=== PATIENT | male | born 1950 | race Caucasian/White ===

== ENCOUNTER → 2023-10-01 10:22 | Outpatient (REF) | payer MEDICARE, OTHER, SELFPAY | LOC: RAD 10:22 | PROVIDERS: ATTENDING PHYSICIAN Surgery Vascular Surgery; FAMILY PHYSICIAN Internal Medicine | DX: I73.9 Peripheral vascular disease, unspecified (principal) | CPT/HCPCS: 93922; 93925 ==

== ENCOUNTER 2023-12-09 14:32 | Inpatient (IN) | payer MEDICARE, OTHER, SELFPAY ==
[2023-12-09] VITALS (8 sets, daily range): BP systolic 87–145; BP diastolic 49–82; BMI 26.4
[2023-12-09 13:03] LABS: % Basophils 0.2 % (0-2); % Eosinophils 1.4 % (0-6); % Immature Granulocytes 0.9 % (0-0.5); % Lymphocytes 15.9 % (20.5-51.1); % Monocytes 11.8 % (1.7-9.3); % Neutrophils 69.8 % (42.2-75.2); Absolute Eosinophils 0.1 10^3/uL (0-0.7); Absolute Lymphocytes 0.7 10^3/uL (1.2-3.4); Absolute Monocytes 0.5 10^3/uL (0.1-0.6); Hematocrit 29.3 % (39.0-52.0); Hemoglobin 9.8 g/dL (13.0-18.0); Mean Corp Hgb Conc. 33.4 g/dL (33.0-37.0); Mean Corpuscular Hgb 32.1 pg (27.0-31.0); Mean Corpuscular Volume 96.1 fL (80.0-94.0); Mean Platelet Volume 12.4 fL (7.4-10.4); Nucleated Red Blood Cells % 0 % (-); Platelet Count 111 10^3/uL (130-400); Red Blood Cell Count 3.05 10^6/uL (4.70-6.10); Red Cell Dist. Width 14.1 % (11.5-14.5); White Blood Cell Count 4.3 10^3/uL (4.8-10.8)
[2023-12-09 13:04] LABS: ALT (SGPT) 17 U/L (0-50); AST (SGOT) 15 U/L (17-59); Albumin 3.8 g/dl (3.5-5.0); Alkaline Phosphatase 131 U/L (38-126); Blood Urea Nitrogen 29 mg/dl (9-20); Calcium 9.5 mg/dl (8.4-10.2); Carbon Dioxide 29 mmol/L (22-30); Chloride 101 mmol/L (98-107); Glucose 120 mg/dl (70-99); Potassium 3.8 mmol/L (3.5-5.1); Sodium 140 mmol/L (135-145); Total Bilirubin 0.4 mg/dl (0.2-1.3); Total Protein 6.1 g/dl (6.3-8.2); eGFR 15.06
--- NOTE | 2023-12-09 13:19 | ED.GENMED ---
History of Present Illness
General
Chief Complaint: Rectal Bleeding
Source: patient and spouse
Exam Limitations: none
Time Seen by Provider: 12/09/23 12:05
Nursing documentation reviewed up to this point in time: agreed with
Travel History
Have you had any contact with someone who has COVID-19?: No
Do you have any symptoms of coronavirus? Fever > 100 degrees, chills, cough, shortness of breath, sore throat, loss of taste or smell, muscle aches, or headache?: No
History of Present Illness
History of Present Illness:
73 yo male w h/o CAD, HTN, HLD, pacemaker, Linq device, CABG x 5, on Plavix (last dose 2 days ago) and aspirin, ESRD on dialysis, last dialysis was yesterday, presents stating he has had 3 episodes of bright red blood with bowel movements since
yesterday last was this morning.
He has chronic NI and chronic intermittent chest pain and chronic pain in his legs and none of these are worse.
Past History
Past History
ED Past Medical History: CAD, GERD, HTN, Hypercholesterolemia, Renal failure (Thursday) and Other (Gout)
ED Past Surgical History: Appendectomy and Cardiac (cardiac stent, Open heart)
Social History
Tobacco: Non-smoker
Alcohol: None
Drug: None
Personal:
Living: with family
Review of Systems
Review of Systems
Allergies reviewed?: Yes
All Other Systems: ROS reviewed and negative except as documented in HPI and ROS
Constitutional: Denies fever or fatigue
Respiratory: Reports cough (Chronic intermittent, no change) and trouble breathing (Chronic, no change)
Cardiac: Reports chest pain (Chronic intermittent, no change); Denies palpitations or syncope
ABD/GI: Reports bloody stools; Denies abdominal pain, nausea, vomiting, diarrhea or constipated
: Reports other (Dialysis patient)
Musculoskeletal: Reports no symptoms
Skin: Reports other (Dialysis shunt left upper arm)
Neurological: Denies dizzy, headache, weakness or numbness
Phy Exam
Physical Exam
Physical Exam:
GENERAL: No acute distress. A&Ox3.
CONSTITUTIONAL: Afebrile.
EYES: PERRL, conjunctivae normal
ENMT: moist mucus membranes, Pharynx nl
RESPIRATORY: Regular respirations, nonlabored, lungs clear.
CARDIOVASCULAR: Regular rate and rhythm, + murmur, no rubs.
GI: Soft, nontender, normal BS
Rectal: No stool in rectal vault, gloved finger with maroon-colored liquid hematest positive. No visible or palpable hemorrhoids
MUSCULOSKELETAL: Moves with ease. Well perfused.
SKIN: Warm, dry, pink
PSYCH: Normal mood and affect. Well kept, interactive and appropriate
NEUROLOGIC: Awake, alert and oriented. No focal neurological deficits rectal:
Course
Orders/Labs/Results
Orders:
Orders
12/09/23 12:40
Type+Screen Urgent
Complete Blood Count/With Diff Urgent
Comprehensive Metabolic Panel Urgent
12/09/23 13:33
Electrocardiogram (*1) Urgent
Reason for Study: Other
Other Reason for Exam: bigeminy
EKG- Treatment ONCE
12/09/23 14:18
Old Records Request [Obtain Records] As Directed
Dates of Information to be Released: 12/09/23
Type of Information Requested: Entire Record
Comment: need dialysis notes with treatement plan [phone]
12/09/23 14:20
Admit/Transfer Patient As Directed
Co-Sign Provider:
Level of Care: Inpatient admission
Assign to:: Medical/Surgical
Physician / Group: elinor recinos
Diagnosis: acute rectal bleeding concern diverticular
Reason for Hospitalization: acute rectal bleeding concern diverticular
Expected length of stay greater than two midnights?: Yes
ELOS- Estimated Length of Stay in days: 3
I certify the patient meets the requirements for IP care: Yes
Code Status As Directed
Resuscitation Status: Full Code
12/09/23 14:29
GASTROINTESTINAL CONSULT Routine
Consulting Provider: Ayla Pak
Was physician already notified: Yes
Reason for consult: Rectal bleeding
12/09/23 16:00
Activity As Directed
Activity Level: As Tolerated
Intake/ Output As Directed
Frequency: Per unit guidelines
Pneumatic Compression Sleeves As Directed
Type: Knee high
Vital Signs As Directed
Frequency: Per unit guidelines
Weight As Directed
Frequency: Daily
Pulse Ox/spot Check [RESP] Routine
Quantity: 1
Ot Eval And Treat Routine
Pt Eval And Treat Routine
Activity Level: As Tolerated
DX Deep Vein Thrombosis Video Routine
12/09/23 16:30
Furosemide [Lasix] 40 mg PO BID@0800,1600
12/09/23 17:30
Sevelamer Carbonate [Renvela] 1,600 mg PO MEALS
12/09/23 20:00
H&H Q8H
ISOSORBIDE MONOnitrate ER [Imdur (Extended Release)] 60 mg PO BID
Metoprolol [Lopressor] 50 mg PO BID
12/09/23 22:00
Allopurinol [Zyloprim] 100 mg PO HS
Amlodipine [Norvasc] 5 mg PO HS
12/10/23 04:00
H&H Q8H
12/10/23 06:00
Complete Blood Count/With Diff IN AM
Comprehensive Metabolic Panel IN AM
12/10/23 08:00
Aspirin Low Dose EC [Aspir Low (Enteric Coated)] 81 mg PO DAILY
Cholecalciferol (Vitamin D3) [VITAMIN D3 (cholecalciferol)] 25 mcg PO DAILY
Cyanocobalamin [Vitamin B-12] 100 mcg PO DAILY
12/10/23 12:00
H&H Q8H
12/10/23 20:00
H&H Q8H
12/11/23 06:00
Complete Blood Count/With Diff IN AM
Comprehensive Metabolic Panel IN AM
12/11/23 08:00
Calcitriol [Rocaltrol] 0.75 mcg PO MoWeFr
12/12/23 06:00
Complete Blood Count/With Diff IN AM
Comprehensive Metabolic Panel IN AM
12/13/23 06:00
Complete Blood Count/With Diff IN AM
Comprehensive Metabolic Panel IN AM
Abnormal Lab Results
12/09/23
12:40
WBC 4.3 L 10^3/uL
(4.8-10.8)
RBC 3.05 L 10^6/uL
(4.70-6.10)
Hgb 9.8 L g/dL
(13.0-18.0)
Hct 29.3 L %
(39.0-52.0)
MCV 96.1 H fL
(80.0-94.0)
MCH 32.1 H pg
(27.0-31.0)
Plt Count 111 L 10^3/uL
(130-400)
MPV 12.4 H fL
(7.4-10.4)
Absolute Lymphs (auto) 0.7 L 10^3/uL
(1.2-3.4)
Immature Gran % 0.9 H %
(0-0.5)
Lymphocytes % 15.9 L %
(20.5-51.1)
Monocytes % 11.8 H %
(1.7-9.3)
BUN 29 H mg/dl
(9-20)
Creatinine 4.0 H mg/dL
(0.7-1.3)
Glucose 120 H mg/dl
(70-99)
AST 15 L U/L
(17-59)
Alkaline Phosphatase 131 H U/L
(38-126)
Total Protein 6.1 L g/dl
(6.3-8.2)
12/09/23 12:40
12/09/23 12:40
Vital Signs
Initial and Last Documented VS:
Initial Vital Signs
Temp Pulse Resp BP Pulse Ox
98.3 F 99 20 112/49 99
12/09/23 12:01 12/09/23 12:01 12/09/23 12:01 12/09/23 12:01 12/09/23 12:01
Last Documented Vital Signs
Temp Pulse Resp BP Pulse Ox
98.1 F 85 16 105/57 100
12/09/23 16:55 12/09/23 16:55 12/09/23 16:55 12/09/23 16:55 12/09/23 16:55
MDM/Problems Addressed
Differential Diagnosis Includes:
Hemorrhoid, lower GI bleed
MDM/Problems Addressed:
73 yo male w h/o CAD, HTN, HLD, pacemaker, Linq device, CABG x 5, on Plavix and aspirin, ESRD on dialysis, last dialysis was yesterday, presents stating he has had 3 episodes of bright red blood with bowel movements since yesterday last was this
morning.
He has chronic NI and chronic intermittent chest pain and chronic pain in his legs and none of these are worse.
1:15 PM
CBC: Hemoglobin 9.8
CMP: Consistent with his ESRD
Rectal: Maroon liquid on gloved finger hematest positive
No visible hemorrhoids
Patient is hemodynamically stable
Hospitalist notified of admission
*EKG
EKG Intrepretation Date: 12/09/23
Interpretation: abnormal
Ischemia: no ischemia
*Critical Care Note
Total Time (30-74mins, 75-104mins- exclusive of procedures): Not Applicable
ED Attending Note
-
Portions of this chart may have been created with voice recognition software.� Occasional wrong word or��sound alike� substitutions may have occurred due to the inherent limitations of voice recognition software.
Discharge Plan
Departure
Patient Disposition: Admit
Date of Disposition: 12/09/23
Time of Disposition: 13:19
Admit to: Med/Surg
Presentation/result/management discussed w/ accepting MD/DO: Hospitalist
Condition: Good
Discharge Problem:
Rectal bleeding
Interventions
Interventions:
*Risk Screen - Suicide Last Done: 12/09/23 12:01
*General Assessment Last Done: 12/09/23 12:01
*Neglect/Abuse Screening Last Done: 12/09/23 12:01
ED- Fall Risk Assessment Last Done: 12/09/23 15:59
*ED COVID-19 Vaccine History Last Done: 12/09/23 15:59
*Nursing Disposition Last Done: 12/09/23 15:59
PJ-Yswwha-Jtkzunsigz Assessment Last Done: 12/09/23 12:42
ED- Cardiac Assessment Last Done: 12/09/23 13:36
ED- Pulmonary Assessment Last Done: 12/09/23 12:41
Discharge Date and Time
Discharge Date/Time: 12/09/23 15:59
--- NOTE | 2023-12-09 13:45 | HPS.HSE ---
Addendum entered and electronically signed by Herman Osman MD 12/09/23 15:00:
Seen and examined by me independently in collaboration with the nurse practitioner Shakira.
Past medical history/social history/medication/allergies reviewed.
Lab data and imaging data reviewed.
Patient presents with episodic bright red rectal bleeding since 12/06.
Denies any nausea vomiting or abdominal pain. No dizziness.
He is on aspirin and Plavix for coronary stent. Stop taking Plavix since Thursday.
is hemodynamically stable and his H&H seems stable compared to previous results.
Concern of lower GI bleed. Hold further Plavix. Continue with aspirin due to coronary stent. Consult GI. Follow H&H closely.
Known to have end-stage renal disease on hemodialysis which she had yesterday. Clinically compensated. Next hemodialysis on Thursday and if he needed to stay till then will consult nephrology for hemodialysis support.
Original Note:
Family Physician
-
Family Physician: Lisa Torres
Chief Complaint
-
Rectal bleeding bright red
History of Present Illness
73-year-old male complaining of 5 episodes of bright red blood with bowel movements over the last 2 days. 2 each day then 1 this a.m. He reports he held his Plavix the first time he had blood which was 2 days ago he is on Plavix for history of
cardiac stent July 2022. In the ER his rectal exam showed liquid maroon-colored heme positive stool. He denies any recent constipation or straining. He denies headache, fever, chills, chest pain, palpitations, shortness breath, cough,
abdominal pain or cramping, nausea, vomiting, diarrhea, urinary symptoms. He did complete his dialysis this morning prior to arrival in the ER. He follows with [facility] [phone].
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
Medical History
Past Medical History
Past Medical History: Reports Other
Additional Past Medical History:
CAD status post CABG x 5 vessel/cardiac stent
chronic diastolic CHF
end-stage renal disease on dialysis Thursday
Chronic anemia/thrombocytopenia
HTN
HLD
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
gout
Past Surgical History: Reports Other
Additional Past Surgical History:
CAD status post CABG x 5 vessel/cardiac stent
Appendectomy
Colonoscopy May 2022 with benign polypectomy x 2
Social History
Tobacco: Non-smoker
Alcohol: None
Drug: None
Personal:
Living: With Family ()
Employment: Retired
Family History
Family History: Not pertinent
Allergies / Home Medications
Allergies reflects when Allergies were last updated in [facility].
Home Medications with original date entered in [facility]
Allergy/Medication List:
Allergies
Allergy/AdvReac Type Severity Reaction Status Date / Time
No Known Allergies Allergy Verified 12/09/23 12:01
Home Medications
allopurinol 100 mg tablet 100 mg PO HS Gout 08/26/22
atorvastatin 40 mg tablet 40 mg PO HS High cholesterol 08/26/22
metoprolol tartrate 50 mg tablet 50 mg PO BID Heart disease/condition 08/26/22
nitroglycerin 0.4 mg sublingual tablet 0.4 mg sublingual [id number] PRN chest pain #25 tabs 08/26/22
sevelamer HCl 800 mg tablet 1,600 mg PO MEALS Kidney Disease 08/31/22
aspirin 81 mg capsule 81 mg PO DAILY Heart Disease/Condition 03/11/23
amlodipine 5 mg tablet 5 mg PO HS Blood Pressure #0 tabs 03/17/23
calcitriol 0.25 mcg capsule 0.75 mcg PO .HD DAYS Kidney Disease 12/09/23
cholecalciferol (vitamin D3) 25 mcg (1,000 unit) tablet (Vitamin D3) 25 mcg PO DAILY Supplement 12/09/23
clopidogrel 75 mg tablet 75 mg PO .SEE BELOW Blood Clot Prevention/Tx 12/09/23
cyanocobalamin (vitamin B-12) 100 mcg tablet (Vitamin B-12) 100 mcg PO DAILY 12/09/23
furosemide 40 mg tablet 40 mg PO BID@0800,1600 12/09/23
icosapent ethyl 1 gram capsule 1 g PO BID 12/09/23
isosorbide mononitrate 60 mg tablet,extended release 24 hr 60 mg PO BID 12/09/23
Review of Systems
-
History Source: Patient and Family ( and daughter at bedside)
A 12 point ROS was completed and negative except as noted: Yes
Constitutional: Denies Fever, Weight Loss, Fatigue or Chills
EENT: Denies Sore Throat or Runny Nose
Respiratory: Denies Cough or Trouble Breathing
Cardiac: Denies Chest Pain, Diaphoresis, Palpitations or Syncope
Abdomen/GI: Reports Bloody Stools (Bright red mixed with brown solid stool); Denies Abdominal Pain, Nausea, Vomiting, Diarrhea, Constipated or Black Stools
: Denies Dysuria, Frequency, Flank Pain, Incontinence or Difficulty Voiding
Musculoskeletal: Denies Joint Pain or Edema
Skin: Denies Itching or Rash
Neurological: Denies Dizzy, Headache or Weakness
Endocrine: Reports No Symptoms
Hematologic/Lymphatic: Reports No Symptoms
Psych: Reports Calm
Physical Exam
Vital Signs
Vital Signs
Temp Pulse Resp BP Pulse Ox
98.3 F 90 20 112/49 96
12/09/23 12:01 12/09/23 13:15 12/09/23 13:15 12/09/23 12:01 12/09/23 13:15
Physical Exam
General: No Apparent Distress, Comfortable and Conversant; No Pain or Fever
HEENT: NormoCephalic, Anicteric, Moist mucous membranes, PERRLA and No Ptosis
Respiratory: Clear; No Wheezes, Rales or Rhonchi
Cardiac: S1/S2, Regular Rhythm and Murmur (2/6 systolic murmur); No Rub, Gallop or Peripheral Edema
Breast: Deferred by me
GI: Soft, Non Tender, Non Distended, Normal Bowel Sounds and No Hepatosplenomegaly
Rectal: Hem Positive (Maroon and liquid per ER exam)
Genito-urinary: Deferred by me
Musculoskeletal: No Clubbing, No Cyanosis and No Edema
Skin: Warm, Dry and Other (Left upper arm AV fistula intact positive thrill); No Rash or Jaundice
Neuro: AO x 3, No Motor Deficits, Nonfocal/grossly intact, Cranial Nerves Intact and No Sensory Deficits; No Slurred Speech, Facial Droop or Tremors
Psych: Calm
Laboratory Results
-
12/09/23 12:40
12/09/23 12:40
Laboratory Results
Total Bilirubin 0.4 mg/dl (0.2-1.3) 12/09/23 12:40
AST 15 U/L (17-59) L 12/09/23 12:40
ALT 17 U/L (0-50) 12/09/23 12:40
Alkaline Phosphatase 131 U/L (38-126) H 12/09/23 12:40
Data Reviewed
-
Lab Data: Labs Reviewed by me
Impression/Plan
-
Impression/plan:
Admit to [facility]
# Acute rectal bleeding
112/49, HR 90, 96% RA, 98.3
Maroon-colored heme positive
Hgb 9.8, MCV 96.1(baseline appears 11.8�12)
-Patient has held his Plavix the last 2 days starting 12/07/2023
-Consult GI
-Continue aspirin
-Hold Plavix
-H&H every 8 hours
-Type and screen
#ESRD on dialysis Thursday
-Patient follows with [facility] nephro [phone]
- states he had recent CT abdomen December 01 to evaluate kidneys which showed a stone she is unsure what side
-Dialysis catheter left upper arm
Creat 4
Patient had full dialysis today 12/09/2023 if stays till Thursday will need nephro consult
-Continue Calcitrol, sevelamer 1600 mg with meals
-Follow BMP
#Linq device
Follows with nsh teacher Dr. Mendoza at [facility]
#Chronic anemia secondary to renal disease
#Chronic thrombocytopenia
Hgb 9.8 baseline 1.8-12
PLT 111
#HTN�benign
112/49
-Continue amlodipine 5 mg at bedtime with hold parameter
-Continue Imdur 60 twice daily, metoprolol tartrate 50 mg twice daily with hold parameters
#Hx chronic diastolic CHF
Monitor I/O, daily weights
-Continue Lasix 40 mg twice daily
#CAD/CABG x 5 vessel
Cardiac stent July 2022
#Hx NSTEMI
-Continue atorvastatin 40 mg at bedtime, aspirin 81 mg daily, Imdur 60 mg twice daily with hold parameters
-Patient held Plavix last 2 days
2D echo 07/16/2023: EF 60 to 65%, hypokinesis basal anteroseptal/inferior septal wall, stage II diastolic dysfunction, mild biatrial enlargement, mild aortic stenosis
#HLD
-Continue atorvastatin
# Hx visual loss left eye due to vitreous hemorrhage March 2023
-Vision loss resolved
#Gout
-Continue allopurinol
DVT prophylaxis
SCDs
Full code
--- NOTE | 2023-12-09 14:42 | CON.GI ---
Addendum entered and electronically signed by JAYLEEN Mcclellan 12/10/23 09:57:
correction to below pt on Plavix not eliquis
Addendum entered and electronically signed by Ayla Pak MD 12/09/23 16:58:
I saw and examined the patient.
The HEAT REGULATOR or PA's note was reviewed and I agree with the note.
Comment:
Pt is a 73 y/o man with a hx of CABD and stents in 2022, on plavix, last dose thursday, chf, ESRD on HD who has painless rectal bleeding and a hx of diverticulosis by CTA in 2022. He did have a colonoscopy at [facility] in 2021 and he
stated it was fine except for some polyps and he wass told he doesn't need a repeat.
abd: soft, nontender
impression
LGIB
diverticulosis
thrombocytopenia
hgb stable from 2022
ESRD
plan:
monitor hgb
clears
likely diverticular bleed
attempt at old report
if needs colonoscopy will need to coordinate with renal
cardiac stents in 2022 with erratic plavix, will need cardiology f/u
Original Note:
Consultation
-
Date/Time Consultation Requested: 12/09/23 1415
Date/Time Consultation Performed: 12/09/23 1445
Requesting Provider: JAYLEEN Casanova
Performing Provider: JAYLEEN Borges
Reason for Consultation: rectal bleeding
Medical History
Chief Complaint / HPI
Chief Complaint: rectal bleeding
History of Present Illness:
Pt is a 73yo with hx CAD with prior CABG and stents last 2022 on chronic Plavix, CHF, HTN, hypercholesterolemia, diverticulosis, ESRD on HD, prior PD stopped after peritonitis, visual loss, possible early prostate CA, thrombocytopenia, anemia,
colon polyps with onset of rectal bleeding. In ER noted with liquid maroon colored stool on rectal and pt reports starting with bleeding with 2 stools on Thursday 2 Thursday and 1 Thursday where entire bowel was red. hbg 10-12 in 2022 now 9.8,
platelets 111. Pt states no hx GI bleeding in past. Colonoscopy last 05/2022 at [facility] recall as benign polyps and no repeat needed. He report recent CT done last week but was unable to recall reason for followup.
Pt denies dysphagia, GERD, nausea, vomiting, abdominal pain, dizziness, blood or black in stools. No NSAID use. No prior Endoscopy. Prior CTA 2022 multiple finding including extensive diverticulosis
Past Medical History
Past Medical History: CAD, HTN, Hypercholesterolemia, Renal Failure (ESRD on HD, prior PD stopped after peritonitis) and Other (chronic visual loss due to hemorrhage 03/2023, gout, colon polyps, anemia, thrombocytopenia,diverticulosis )
Past Surgical History: Appendectomy and Cardiac (CABG/stents, linq device)
Social History
Tobacco: Non-Smoker
Alcohol: None
Drug: None
Personal:
Living: With Family
Employment: Retired
Family History
Family History: Other (no family hx colon Ca or polyps )
Allergies / Home Medications
Allergy/AdvReac Type Severity Reaction Status Date / Time
No Known Allergies Allergy Verified 12/09/23 12:01
�Medication �Instructions �Recorded
allopurinol 100 mg tablet 100 mg PO HS Gout 08/26/22
atorvastatin 40 mg tablet 40 mg PO HS High cholesterol 08/26/22
metoprolol tartrate 50 mg tablet 50 mg PO BID Heart 08/26/22
disease/condition
nitroglycerin 0.4 mg sublingual 0.4 mg sublingual [id number] PRN 08/26/22
tablet chest pain #25 tabs
sevelamer HCl 800 mg tablet 1,600 mg PO MEALS Kidney Disease 08/31/22
aspirin 81 mg capsule 81 mg PO DAILY Heart 03/11/23
Disease/Condition
amlodipine 5 mg tablet 5 mg PO HS Blood Pressure #0 tabs 03/17/23
calcitriol 0.25 mcg capsule 0.75 mcg PO .HD DAYS Kidney Disease 12/09/23
cholecalciferol (vitamin D3) 25 25 mcg PO DAILY Supplement 12/09/23
mcg (1,000 unit) tablet (Vitamin
D3)
clopidogrel 75 mg tablet 75 mg PO .SEE BELOW Blood Clot 12/09/23
Prevention/Tx
cyanocobalamin (vitamin B-12) 100 100 mcg PO DAILY 12/09/23
mcg tablet (Vitamin B-12)
furosemide 40 mg tablet 40 mg PO BID@0800,1600 12/09/23
icosapent ethyl 1 gram capsule 1 g PO BID 12/09/23
isosorbide mononitrate 60 mg 60 mg PO BID 12/09/23
tablet,extended release 24 hr
Review of Systems
-
History Source: Patient
Constitutional: Reports No Symptoms
EENT: Reports No Symptoms
Respiratory: Reports No Symptoms
Cardiac: Reports No Symptoms
Abdomen/GI: Reports Bloody Stools
: Reports No Symptoms
Musculoskeletal: Reports No Symptoms
Skin: Reports No Symptoms
Neurological: Reports No Symptoms
Endocrine: Reports No Symptoms
Hematologic/Lymphatic: Reports Bleeding
Vital Signs
Temp Pulse Resp BP Pulse Ox
98.3 F 88 24 113/60 98
12/09/23 12:01 12/09/23 14:00 12/09/23 14:00 12/09/23 14:00 12/09/23 14:00
Physical Exam
Exam
General: Well Developed, Well Nourished and No Apparent Distress
HEENT: Normocephalic and Anicteric
Respiratory: Clear
Cardiac: Irregular Rhythm
GI: Soft, Non Tender and Non Distended
Rectal: Hem Positive (burgundy per ER)
Musculoskeletal: No Clubbing and No Cyanosis
Skin: Warm and Dry
Neuro: Awake, Alert and AO x 3
Psych: Calm
Results
WBC 4.3 10^3/uL (4.8-10.8) L 12/09/23 12:40
Hgb 9.8 g/dL (13.0-18.0) L 12/09/23 12:40
Hct 29.3 % (39.0-52.0) L 12/09/23 12:40
MCV 96.1 fL (80.0-94.0) H 12/09/23 12:40
Plt Count 111 10^3/uL (130-400) L 12/09/23 12:40
Absolute Neuts (auto) 3.0 10^3/uL (1.4-6.5) 12/09/23 12:40
Sodium 140 mmol/L (135-145) 12/09/23 12:40
Potassium 3.8 mmol/L (3.5-5.1) 12/09/23 12:40
Chloride 101 mmol/L (98-107) 12/09/23 12:40
Carbon Dioxide 29 mmol/L (22-30) 12/09/23 12:40
BUN 29 mg/dl (9-20) H 12/09/23 12:40
Creatinine 4.0 mg/dL (0.7-1.3) H 12/09/23 12:40
Calcium 9.5 mg/dl (8.4-10.2) 12/09/23 12:40
Total Bilirubin 0.4 mg/dl (0.2-1.3) 12/09/23 12:40
AST 15 U/L (17-59) L 12/09/23 12:40
ALT 17 U/L (0-50) 12/09/23 12:40
Alkaline Phosphatase 131 U/L (38-126) H 12/09/23 12:40
Diagnostic Image Results:
02/2023 CT Chest/abd/pelvis Angio W/wo
1. No finding to suggest aortic dissection or aneurysm. Moderate to severe atherosclerotic vascular disease.
2. Mild basilar atelectasis. Mild CHF. Mild cardiomegaly. Prior CABG.
3. No central pulmonary embolism.
4. Extensive diverticulosis. No specific definite CT evidence for diverticulitis.
5. Severe atrophy of the kidneys. Multiple calcifications in the right kidney. Mild obstruction with multiple calcifications in the right renal pelvis. Bilateral renal cysts. Consistent with known chronic renal disease.
6. Mild prostatomegaly. Indents the floor of the bladder.
7. Cholelithiasis.
Prior GI Procedures:
EGD: none
Colonoscopy: last [facility] recall polyps
Assessment / Plan
-
Pt is a 73yo with hx CAD with prior CABG and stents last 2022 on chronic Plavix, CHF, HTN, hypercholesterolemia, diverticulosis, ESRD on HD, visual loss, possible early prostate CA, thrombocytopenia, anemia, colon polyps with onset of rectal
bleeding. In ER noted with liquid maroon colored stool on rectal and pt reports starting with bleeding with 2 stools on Thursday 2 Thursday and 1 Thursday where entire bowel was red. hbg 10-12 in 2022 now 9.8, platelets 111. Pt states no hx GI
bleeding in past. Colonoscopy last 05/2022 at [facility] recall as benign polyps and no repeat needed. He report recent CT done last week but was unable to recall reason for followup.
-rectal bleeding concern for diverticular bleed
-extensive diverticulosis per prior CT
-mild anemia
-CAD prior CABG/stents
other med problems:
-ESRD on HD
-hx peritonitis
-? early prostate CA
-thrombocytosis
-colon polyps
-CHF
-HTN
-hypercholesterolemia
PLAN:
Etiology of bleeding with concern for diverticular bleed vs other
monitor stools and hbg trend
transfuse <7
if increased bleeding consider CTA if able per renal vs nuclear bleeding scan
if persistent bleeding then colonoscopy after eliquis wash out
consider cards review for length of Plavix as patient has already weaned self to three times per week several months ago
Plavix hold dose 12/06
ok for sips clears/ice chips
will follow
-
-
Thank you for consultation and allowing me to participate in the patient's care. Please call the environmental intern GI physician during the after hours with any questions or concerns.
[2023-12-09] MEDS: RENVELA PO (16:38)
[2023-12-09] MEDS: LASIX 40 MG PO (17:09)
[2023-12-09 20:25] LABS: Hematocrit 32.2 % (39.0-52.0); Hemoglobin 10.5 g/dL (13.0-18.0)
[2023-12-09] MEDS: LIPITOR 40 MG PO (20:50)
[2023-12-09] MEDS: LOPRESSOR 50 MG PO (20:52)
[2023-12-09] MEDS: NORVASC 5 MG PO (20:54)
[2023-12-09] MEDS: IMDUR (EXTENDED RELEASE) 60 MG PO (20:55)
[2023-12-09] MEDS: ZYLOPRIM 100 MG PO (20:55)
[2023-12-10] VITALS (11 sets, daily range): BP systolic 90–127; BP diastolic 40–59; PULSE 41; O2SAT 100; BMI 26.9
--- NOTE | 2023-12-10 01:01 | W.PN.UPDATE ---
Update Note
Progress Note Update
Patient went in asymptomatic hypotension with bp 96/47---->> 90/40, hr 39 after receiving Imdur 60 mg, Lopressor 50mg and Norvasc 5mg. Patient was placed on and tele, bigeminal PVCs noted on the monitor. Patient denied SOB, chest pain or any other
symptoms. Ekg done, one time of midodrine ordered.
Morning lab with K level 5.4, one time Lokelma was ordered.
[2023-12-10] MEDS: ProAmatine 10 MG PO (03:53)
[2023-12-10 04:27] LABS: % Basophils 0.3 % (0-2); % Eosinophils 1.4 % (0-6); % Immature Granulocytes 0.7 % (0-0.5); % Lymphocytes 19.9 % (20.5-51.1); % Monocytes 10.3 % (1.7-9.3); % Neutrophils 67.4 % (42.2-75.2); Absolute Eosinophils 0.1 10^3/uL (0-0.7); Absolute Lymphocytes 1.2 10^3/uL (1.2-3.4); Absolute Monocytes 0.6 10^3/uL (0.1-0.6); Absolute Neutrophils 3.9 10^3/uL (1.4-6.5); Hematocrit 28.3 % (39.0-52.0); Hemoglobin 9.2 g/dL (13.0-18.0); Mean Corp Hgb Conc. 32.5 g/dL (33.0-37.0); Mean Corpuscular Hgb 31.5 pg (27.0-31.0); Mean Corpuscular Volume 96.9 fL (80.0-94.0); Mean Platelet Volume 12.5 fL (7.4-10.4); Nucleated Red Blood Cells % 0 % (-); Platelet Count 104 10^3/uL (130-400); Red Blood Cell Count 2.92 10^6/uL (4.70-6.10); Red Cell Dist. Width 14.1 % (11.5-14.5); White Blood Cell Count 5.8 10^3/uL (4.8-10.8)
[2023-12-10 05:00] LABS: ALT (SGPT) 15 U/L (0-50); AST (SGOT) 14 U/L (17-59); Albumin 3.4 g/dl (3.5-5.0); Alkaline Phosphatase 128 U/L (38-126); Blood Urea Nitrogen 43 mg/dl (9-20); Calcium 9.5 mg/dl (8.4-10.2); Carbon Dioxide 25 mmol/L (22-30); Chloride 101 mmol/L (98-107); Estimated Creatinine Clearance 11 ml/min; Glucose 98 mg/dl (70-99); Potassium 5.4 mmol/L (3.5-5.1); Sodium 136 mmol/L (135-145); Total Bilirubin 0.5 mg/dl (0.2-1.3); Total Protein 5.7 g/dl (6.3-8.2); eGFR 10.99
[2023-12-10] MEDS: LOKELMA 10 GRAM PO (06:01)
--- NOTE | 2023-12-10 06:17 | PTCARENOTE ---
@0501 ;TT GLASS ETCHER S Critical creatinie 5.2 and potassium 5.4. Received order for Lokelma 10 grams po now and administered.
--- NOTE | 2023-12-10 09:49 | W.PN.GI.CBS2 ---
Addendum entered and electronically signed by Ayla Pak MD 12/10/23 11:47:
I saw and examined the patient.
The PHOTO TECHNOLOGIST or PA's note was reviewed and I agree with the note.
Comment:
Pt with no bleeding overnight, no abd pain
awake alert
impression
rectal bleeding
diverticular disease
ESRD
CAD
plan:
plavix now on hold since thursday and pt, and daughter wish to proceed with colonscopy in light of unclear colonoscopy results from several years ago.
will need timing with dialysis
follow hgb
for colonoscopy tomorrow.
Addendum entered and electronically signed by JAYLEEN Mcclellan 12/10/23 11:04:
ok per Dr. Osman for prep, he will check mag level now prior procedure.
Addendum entered and electronically signed by JAYLEEN Mcclellan 12/10/23 10:55:
updated daughter and via phone. Pt and family agreeable for colonoscopy 12/10 with bleeding. I reviewed with Dr. Osman and consulted renal for dialysis management. plan for AM colon and PM dialysis. Reviewed with Dr. Osman with tabitha
PVC's and hypotension.
Original Note:
Today's Communication / Plan
-
no bleeding , hbg stable 9.2 slight drop
pt deciding on advancing diet and consider discharge vs proceed with colonoscopy in am to eval for cause after further Plavix wash out
cont plavix hold -- consider review with cardiology continued use as pt decreased dose to three times per week prior to admission several months ago
await medicine review with some hypotension with medications last PM
if proceeding with colonoscopy will need to coordinate with HD for timing -- will need renal eval if stay as due to HD tomorrow
cont clear diet til decision on colonoscopy
Assessment / Plan
-
Pt is a 73yo with hx CAD with prior CABG and stents last 2022 on chronic Plavix, CHF, HTN, hypercholesterolemia, diverticulosis, ESRD on HD, peritonitis with prior PD, visual loss, possible early prostate CA, thrombocytopenia, anemia, colon
polyps with onset of rectal bleeding. In ER noted with liquid maroon colored stool on rectal and pt reports starting with bleeding with 2 stools on Thursday 2 Thursday and 1 Thursday where entire bowel was red. hbg 10-12 in 2022 now 9.8, platelets
111. Pt states no hx GI bleeding in past. Colonoscopy last 05/2022 at [facility] recall as benign polyps and no repeat needed. He report recent CT done last week but was unable to recall reason for followup.
-rectal bleeding concern for diverticular bleed
-extensive diverticulosis per prior CT
-hypotension after admission
-mild anemia
-CAD prior CABG/stents
other med problems:
-ESRD on HD
-hx peritonitis with prior PD
-? early prostate CA
-thrombocytosis
-colon polyps
-CHF
-HTN
-hypercholesterolemia
PLAN:
Etiology of bleeding with concern for diverticular bleed vs other
monitor stools and hbg trend-- no stools overnight hbg slight drop 9.8-10.5-9.2
transfuse <7
if increased bleeding consider CTA if able per renal vs nuclear bleeding scan
reviewed with patient 2 options increased diet and consider discharge vs proceed with colonoscopy in AM-- unable to do today as needs prep and would need further Plavix wash out
pt would like to review with . I reviewed with nurse to call GI if any decision made and can add prep-- will need to coordinate with HD if proceeding for tomorrow
consider cards review for length of Plavix as patient has already weaned self to three times per week several months ago
Plavix hold dose 12/06
cont clear diet til decides on colon for 12/10
will follow
Subjective
Subjective
Date of Service: December 10, 2023
no stools overnight, on clear diet no abdominal pain-- episode of hypotension after several medication last PM and also noted some PVC's on minitory
Objective
Data Reviewed
Laboratory Data:
Laboratory Results
12/10/23 04:13
Laboratory Results
Total Bilirubin 0.5 mg/dl (0.2-1.3) 12/10/23 04:13
AST 14 U/L (17-59) L 12/10/23 04:13
ALT 15 U/L (0-50) 12/10/23 04:13
Alkaline Phosphatase 128 U/L (38-126) H 12/10/23 04:13
Vital Signs and I&O:
Vital Signs
Temp Pulse Resp BP Pulse Ox
98.4 F 74 16 98/40 97
12/10/23 08:06 12/10/23 08:06 12/10/23 08:06 12/10/23 08:06 12/10/23 08:06
I&O
12/09/23 12/10/23 12/11/23
06:59 06:59 06:59
Intake Total 525 / 525
Output Total 100 / 100
Balance 425 / 425
Physical Exam
Physical Exam
HEENT: Anicteric and Moist mucous membranes
Cardiology: Normal Sinus Rhythm
Pulmonary: Clear
GI: Soft, Non Distended and Non Tender
Extremities: No Edema
Neuro: Non Focal
--- NOTE | 2023-12-10 10:21 | W.PN.HOSP.TC ---
Today's Communication/Plan
-
Follow H&H
advance diet per GI
Assessment / Plan
Assessment / Plan
# Acute rectal bleeding
Maroon-colored heme positive On presentation. He was hemodynamically stable also on presentation.
This morning he is slightly hypotensive but not tachycardic nor dizzy.No active bleeding today.
H&H with no significant change since admission.
Appreciate GI input-suspicion is for diverticular bleed.
#ESRD on dialysis Thursday
-Patient follows with [facility] nephro [phone]
-Dialysis catheter left upper arm
- Patient had full dialysis today 12/09/2023 if stays till Thursday will need nephro consult
-Continue Calcitrol, sevelamer 1600 mg with meals
-Follow BMP
#Linq device
Follows with miller first Dr. Mendoza at [facility]
#Chronic anemia secondary to renal disease
#Chronic thrombocytopenia
#HTN�benign
-Continue amlodipine 5 mg at bedtime with hold parameter
-Continue Imdur 60 twice daily, metoprolol tartrate 50 mg twice daily with hold parameters
#Hx chronic diastolic CHF
Monitor I/O, daily weights
-Continue Lasix 40 mg twice daily
#CAD/CABG x 5 vessel
Cardiac stent July 2022
#Hx NSTEMI
-Continue atorvastatin 40 mg at bedtime, aspirin 81 mg daily, Imdur 60 mg twice daily with hold parameters
-Patient held Plavix last 2 days
2D echo 07/16/2023: EF 60 to 65%, hypokinesis basal anteroseptal/inferior septal wall, stage II diastolic dysfunction, mild biatrial enlargement, mild aortic stenosis
#HLD
-Continue atorvastatin
# Hx visual loss left eye due to vitreous hemorrhage March 2023
-Vision loss resolved
#Gout
-Continue allopurinol
DVT prophylaxis
SCDs
Full code
Anticipated Discharge: Within 24 hours
Subjective/Interval History
-
Date of Service: December 10, 2023
No further rectal bleeding today per patient.
No nausea vomiting.
Denies any abdominal pain.
Objective Data
-
Labs:
Laboratory Results
12/10/23 12/10/23 12/10/23
04:13 04:13 04:13
WBC 5.8
Hgb 9.2 L Cancelled
Hct 28.3 L Cancelled
Plt Count 104 L
Sodium 136
Potassium 5.4 H D
Chloride 101
Carbon Dioxide 25
BUN 43 H
Creatinine 5.2 H*
Glucose 98
Calcium 9.5
Total Bilirubin 0.5
AST 14 L
ALT 15
Alkaline Phosphatase 128 H
12/10/23 12/10/23
12:00 20:00
WBC
Hgb Pending Pending
Hct Pending Pending
Plt Count
Sodium
Potassium
Chloride
Carbon Dioxide
BUN
Creatinine
Glucose
Calcium
Total Bilirubin
AST
ALT
Alkaline Phosphatase
Vital Signs:
Vital Signs
Temp Pulse Resp BP Pulse Ox
98.4 F 74 16 98/40 97
12/10/23 08:06 12/10/23 08:06 12/10/23 08:06 12/10/23 08:06 12/10/23 08:06
I&O
12/09/23 12/10/23 12/11/23
06:59 06:59 06:59
Intake Total 525 / 525
Output Total 100 / 100
Balance 425 / 425
Review of Systems
-
Respiratory: Denies Trouble Breathing
Cardiac: Denies Chest Pain
Neuro: Denies Dizzy
Physical Exam
-
General: No Apparent Distress
HEENT: Moist Mucous Membranes
Respiratory: Clear to Auscultation
Cardiac: Regular Rhythm and S1/S2
GI: Soft and Nontender
Data Reviewed
-
Labs: Labs Reviewed by me
[2023-12-10] MEDS: RENVELA 1600 MG PO (10:25)
[2023-12-10] MEDS: ASPIR LOW (ENTERIC COATED) 81 MG PO (10:26)
[2023-12-10] MEDS: VITAMIN D3 (cholecalciferol) 25 MCG PO (10:26)
[2023-12-10] MEDS: VITAMIN B-12 100 MCG PO (10:26)
[2023-12-10] MEDS: IMDUR (EXTENDED RELEASE) PO (10:28)
[2023-12-10] MEDS: LASIX PO (10:29)
[2023-12-10] MEDS: LOPRESSOR PO (10:29)
--- NOTE | 2023-12-10 10:57 | W.CON.NEPH ---
Consultation
-
Date/Time Consultation Requested: 12/10/23 1041
Date/Time Consultation Performed: 12/10/23 1115
Requesting Provider: Herman Leger
Performing Provider: Aishwarya Ace
Reason for Consultation: ESRD
Medical History
-
Chief Complaint: Rectal bleeding
History of Present Illness:
73yo M with hx CAD with prior CABGx5 and stents last 2022 on chronic Plavix, ASA, Imdur, DCHF on lasix, HTN on Amlodipine, BB, hypercholesterolemia on statin, diverticulosis, ESRD on HD MWF at [facility] , prior PD stopped after
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
12/08. hbg low at 9.8, platelets 111, soft BPs. Pt states no hx GI bleeding in past. Last HD on Thursday out pt. cramps if UF >3kg.
Pt denies nausea, vomiting, abdominal pain, dizziness. No CP or sob. No blood in stools today per pt.
Past Medical History
CAD status post CABG x 5 vessel/cardiac stent
chronic diastolic CHF
end-stage renal disease on dialysis Thursday
Chronic anemia/thrombocytopenia
HTN
HLD
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
gout
SHPTH
Hyperphosphatemia
prior PD stopped after peritonitis
Left UE AVF
Past Surgical History: Other (CAD status post CABG x 5 vessel/cardiac stent Appendectomy Colonoscopy May 2022 with benign polypectomy x 2)
Social History
Tobacco: Non-Smoker
Alcohol: None
Personal:
Living: With Family
Family History
Family History: Not Pertinent
Allergies / Home Medications
Allergy/AdvReac Type Severity Reaction Status Date / Time
No Known Allergies Allergy Verified 12/09/23 12:01
�Medication �Instructions �Recorded �Confirmed �Type
allopurinol 100 mg tablet 100 mg PO HS Gout 08/26/22 12/09/23 History
atorvastatin 40 mg tablet 40 mg PO HS High cholesterol 08/26/22 12/09/23 History
metoprolol tartrate 50 mg tablet 50 mg PO BID Heart 08/26/22 12/09/23 History
disease/condition
nitroglycerin 0.4 mg sublingual 0.4 mg sublingual [id number] PRN 08/26/22 12/09/23 Rx
tablet chest pain #25 tabs
sevelamer HCl 800 mg tablet 1,600 mg PO MEALS Kidney Disease 08/31/22 12/09/23 History
aspirin 81 mg capsule 81 mg PO DAILY Heart 03/11/23 12/09/23 History
Disease/Condition
amlodipine 5 mg tablet 5 mg PO HS Blood Pressure #0 tabs 03/17/23 12/09/23 Rx
calcitriol 0.25 mcg capsule 0.75 mcg PO .HD DAYS Kidney Disease 12/09/23 12/09/23 History
cholecalciferol (vitamin D3) 25 25 mcg PO DAILY Supplement 12/09/23 12/09/23 History
mcg (1,000 unit) tablet (Vitamin
D3)
clopidogrel 75 mg tablet 75 mg PO .SEE BELOW Blood Clot 12/09/23 12/09/23 History
Prevention/Tx
cyanocobalamin (vitamin B-12) 100 100 mcg PO DAILY Supplement 12/09/23 12/09/23 History
mcg tablet (Vitamin B-12)
furosemide 40 mg tablet 40 mg PO BID@0800,1600 Fluid 12/09/23 12/09/23 History
Retention/Swelling
icosapent ethyl 1 gram capsule 1 g PO BID High Cholesterol 12/09/23 12/09/23 History
isosorbide mononitrate 60 mg 60 mg PO BID Heart 12/09/23 12/09/23 History
tablet,extended release 24 hr Disease/Condition
Review of Systems
-
All complete 12 point ROS have been inquired and found negative other than stated in HPI
Physical Exam
Vital Signs
Vital Signs
Temp Pulse Resp BP Pulse Ox
98.4 F 74 16 98/40 97
12/10/23 08:06 12/10/23 08:06 12/10/23 08:06 12/10/23 08:06 12/10/23 08:06
Lab Results
WBC 5.8 10^3/uL (4.8-10.8) 12/10/23 04:13
RBC 2.92 10^6/uL (4.70-6.10) L 12/10/23 04:13
Plt Count 104 10^3/uL (130-400) L 12/10/23 04:13
Sodium 136 mmol/L (135-145) 12/10/23 04:13
Potassium 5.4 mmol/L (3.5-5.1) H D 12/10/23 04:13
Chloride 101 mmol/L (98-107) 12/10/23 04:13
Carbon Dioxide 25 mmol/L (22-30) 12/10/23 04:13
BUN 43 mg/dl (9-20) H 12/10/23 04:13
Creatinine 5.2 mg/dL (0.7-1.3) H* 12/10/23 04:13
eGFR 10.99 12/10/23 04:13
Glucose 98 mg/dl (70-99) 12/10/23 04:13
Calcium 9.5 mg/dl (8.4-10.2) 12/10/23 04:13
Albumin 3.4 g/dl (3.5-5.0) L 12/10/23 04:13
Abnormal Lab Results
12/09/23 12/09/23 12/10/23
12:40 20:21 04:13
WBC 4.3 L
RBC 3.05 L 2.92 L
Hgb 9.8 L 10.5 L 9.2 L
Hct 29.3 L 32.2 L 28.3 L
MCV 96.1 H 96.9 H
MCH 32.1 H 31.5 H
MCHC 32.5 L
Plt Count 111 L 104 L
MPV 12.4 H 12.5 H
Absolute Lymphs (auto) 0.7 L
Immature Gran % 0.9 H 0.7 H
Lymphocytes % 15.9 L 19.9 L
Monocytes % 11.8 H 10.3 H
Potassium 5.4 H D
BUN 29 H 43 H
Creatinine 4.0 H 5.2 H*
Glucose 120 H
AST 15 L 14 L
Alkaline Phosphatase 131 H 128 H
Total Protein 6.1 L 5.7 L
Albumin 3.4 L
Physical Exam
General: Awake, Alert, Oriented, AOx3, No Distress and Nontoxic
HEENT: EOMI and Anicteric
Respiratory: Clear, Normal Excursion and Nonlabored Respirations
Cardiac: S1/S2 and Regular Rate/Rhythm
Abdomen: Soft, Nontender and Nondistended
Musculoskeletal: No Cyanosis and No Edema
Skin: No Rash (excoriation left leg), Warm and Dry
Neuro: Nonfocal/Grossly Intact
Psych: Mood/afflect pleasant, Insight/judgement good and Appropriate
Data Reviewed
-
Radiology: Report Reviewed by me and Discussed with Patient
Labs: Labs Reviewed by me and Discussed with Patient
Assessment/Plan
-
IMP:
Acute rectal bleeding
ESRD on dialysis Thursday -[facility] nephro [phone]
Linq device-curriculum writer Dr. Mendoza at [facility]
Acute on Chronic anemia secondary to renal disease
Chronic thrombocytopenia
HTN�benign
Hx chronic diastolic CHF
CAD/CABG x 5 vessel
Cardiac stent July 2022
2D echo 07/16/2023: EF 60 to 65%, hypokinesis basal anteroseptal/inferior septal wall, stage II diastolic dysfunction, mild biatrial enlargement, mild aortic stenosis
HLD
Hx visual loss left eye due to vitreous hemorrhage March 2023
Gout
PLan:
A/w rectal bleeding
soft BPs, hold Amlodipine, other meds with holding parameters
monitor h/h , prn transfusion
for C scope in per GI-felt to have diverticular bleed
HD tomorrow after C scope, d/w GI
UF as tolerated by BPs, prn midodrine
cotn vit D and Renvela
renal diet and FR , ok to cont lasix
mild hyperkalemia s/p Lokelma this am
d/w pt and GI
[2023-12-10 12:25] LABS: Hematocrit 31.2 % (39.0-52.0); Hemoglobin 10.3 g/dL (13.0-18.0)
[2023-12-10] MEDS: RENVELA PO ×2 (14:03→17:05)
--- NOTE | 2023-12-10 15:31 | CM ---
Addendum entered by Katherine Reyes 12/10/23 16:23:
PCP: Lisa Torres
Original Note:
I met with Víctor in his hospital room this afternoon to complete initial assessment.
Víctor is originally from [facility] and moved his family here many years ago. 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 He and his life in [place], as does his daughter in her own home. He also has another daughter who lives in
[place].
Víctor anticipates returning home at discharge and will resume dialysis at [facility] at that time.
Plan: Discharge to home with resumption of Dialysis at [facility]. No other needs identified.
[2023-12-10] MEDS: LASIX 40 MG PO (16:58)
[2023-12-10] MEDS: NULYTELY SOLUTION 4 LITERS PO (17:44)
[2023-12-10 20:37] LABS: Hematocrit 35.1 % (39.0-52.0); Hemoglobin 11.6 g/dL (13.0-18.0)
[2023-12-10] MEDS: ZYLOPRIM 100 MG PO (21:09)
[2023-12-10] MEDS: LIPITOR 40 MG PO (21:09)
[2023-12-10] MEDS: IMDUR (EXTENDED RELEASE) 60 MG PO (21:09)
[2023-12-10] MEDS: LOPRESSOR 50 MG PO (21:11)
[2023-12-11] VITALS (12 sets, daily range): BP systolic 21–138; BP diastolic 48–66; BMI 26.9
[2023-12-11 06:42] LABS: % Basophils 0.2 % (0-2); % Eosinophils 1.3 % (0-6); % Immature Granulocytes 0.5 % (0-0.5); % Lymphocytes 20.9 % (20.5-51.1); % Monocytes 9.2 % (1.7-9.3); % Neutrophils 67.9 % (42.2-75.2); Absolute Eosinophils 0.1 10^3/uL (0-0.7); Absolute Lymphocytes 1.3 10^3/uL (1.2-3.4); Absolute Monocytes 0.6 10^3/uL (0.1-0.6); Absolute Neutrophils 4.2 10^3/uL (1.4-6.5); Hemoglobin 10.1 g/dL (13.0-18.0); Mean Corp Hgb Conc. 32.6 g/dL (33.0-37.0); Mean Corpuscular Hgb 32.2 pg (27.0-31.0); Mean Corpuscular Volume 98.7 fL (80.0-94.0); Mean Platelet Volume 12.4 fL (7.4-10.4); Nucleated Red Blood Cells % 0 % (-); Platelet Count 95 10^3/uL (130-400); Red Blood Cell Count 3.14 10^6/uL (4.70-6.10); Red Cell Dist. Width 14.3 % (11.5-14.5); White Blood Cell Count 6.2 10^3/uL (4.8-10.8)
[2023-12-11 06:51] LABS: INR 1.26; PT 15.8 Sec (11.4-14.6)
[2023-12-11 07:08] LABS: ALT (SGPT) 12 U/L (0-50); AST (SGOT) 14 U/L (17-59); Albumin 3.9 g/dl (3.5-5.0); Alkaline Phosphatase 112 U/L (38-126); Blood Urea Nitrogen 58 mg/dl (9-20); Calcium 9.6 mg/dl (8.4-10.2); Carbon Dioxide 20 mmol/L (22-30); Chloride 99 mmol/L (98-107); Estimated Creatinine Clearance 8 ml/min; Glucose 93 mg/dl (70-99); Potassium 5.1 mmol/L (3.5-5.1); Sodium 136 mmol/L (135-145); Total Bilirubin 0.6 mg/dl (0.2-1.3); Total Protein 6.2 g/dl (6.3-8.2); eGFR 6.97
--- NOTE | 2023-12-11 09:54 | W.PN.HOSP.TC ---
Addendum entered and electronically signed by Herman Osman MD 12/12/23 15:19:
GI bleed associated with Plavix
Original Note:
Today's Communication/Plan
-
For colonoscopy today.
Hemodialysis today.
Assessment / Plan
Assessment / Plan
# Acute rectal bleeding
Maroon-colored heme positive On presentation. He was hemodynamically stable also on presentation.
Recurrent rectal bleeding while on the [place] prep. No changes in H&H compared to admission. Blood pressure stable today.
Appreciate GI input-plan for colonoscopy today noted.
#ESRD on dialysis Thursday
-Patient follows with [facility] nephro [phone]
-Dialysis catheter left upper arm
- Patient had full dialysis today 12/09/2023
-Consult nephrology for continued dialysis support while in-house.
-Continue Calcitrol, sevelamer 1600 mg with meals
-Follow BMP
PVCs with ventricular bigeminy.
No arrhythmia. Echocardiogram from Jun 2023 showed EF to be normal. K/ magnesium is okay. Continue with colonoscopy plans.
#Linq device
Follows with community director Dr. Mendoza at [facility]
#Chronic anemia secondary to renal disease
#Chronic thrombocytopenia
#HTN�benign
-Continue amlodipine 5 mg at bedtime with hold parameter
-Continue Imdur 60 twice daily, metoprolol tartrate 50 mg twice daily with hold parameters
#Hx chronic diastolic CHF
Monitor I/O, daily weights
-Continue Lasix 40 mg twice daily
#CAD/CABG x 5 vessel
Cardiac stent July 2022
#Hx NSTEMI
-Continue atorvastatin 40 mg at bedtime, aspirin 81 mg daily, Imdur 60 mg twice daily with hold parameters
-Patient held Plavix last 2 days
2D echo 07/16/2023: EF 60 to 65%, hypokinesis basal anteroseptal/inferior septal wall, stage II diastolic dysfunction, mild biatrial enlargement, mild aortic stenosis
#HLD
-Continue atorvastatin
# Hx visual loss left eye due to vitreous hemorrhage March 2023
-Vision loss resolved
#Gout
-Continue allopurinol
DVT prophylaxis
SCDs
Full code
Anticipated Discharge: 24 - 48 hours
Subjective/Interval History
-
Date of Service: December 11, 2023
Patient started on prep. Started to have again have rectal bleeding. No nausea vomiting. No abdominal pain. No dizziness.
Denies any shortness of breath.
Objective Data
-
Labs:
Laboratory Results
12/11/23
06:27
WBC 6.2
Hgb 10.1 L
Hct 31.0 L
Plt Count 95 L
PT 15.8 H
INR 1.26
Sodium 136
Potassium 5.1
Chloride 99
Carbon Dioxide 20 L
BUN 58 H
Creatinine 7.6 H*
Glucose 93
Calcium 9.6
Total Bilirubin 0.6
AST 14 L
ALT 12
Alkaline Phosphatase 112
Vital Signs:
Vital Signs
Temp Pulse Resp BP Pulse Ox
97.6 F 72 16 113/49 96
12/11/23 07:00 12/11/23 07:00 12/11/23 07:00 12/11/23 07:00 12/11/23 07:00
I&O
12/10/23 12/11/23 12/12/23
06:59 06:59 06:59
Intake Total 525 / 525 2840 / 2840
Output Total 100 / 100
Balance 425 / 425 2840 / 2840
Review of Systems
-
Respiratory: Denies Trouble Breathing
Cardiac: Denies Chest Pain or Palpitations
Neuro: Denies Dizzy
Physical Exam
-
General: No Apparent Distress
HEENT: Moist Mucous Membranes
Respiratory: Clear to Auscultation
Cardiac: Regular Rhythm and S1/S2; Negative Tachycardic
GI: Soft, Nontender, Nondistended and Normal Bowel Sounds
Neuro: AO x 3
Data Reviewed
-
Labs: Labs Reviewed by me
--- NOTE | 2023-12-11 10:02 | PN.CDI ---
CDI
- -
CDI:
Physician Documentation Request
Admit Date: 12/09/23 14:32
Dear Doctor Dawson,
Please review the following and provide your response in the progress notes.
Clinical Indicators:
12/08 Pt admitted with rectal bleed
12/08 H&P: ' He reports he held his Plavix the first time he had blood which was 2 days ago ....'
12/09 GI Note: 'cont plavix hold.'
Please clarify the relationship between these conditions:
Yes, rectal bleed is related to/associated with/exacerbated by Plavix.
No, rectal bleed is not related to/associated with/exacerbated by Plavix but it is due to ___. (Please specify)
Unable to determine
Use of terms such as suspected, likely, concern for, or probable (associated with a specific diagnosis that is being evaluated, monitored, or treated as if it exists) are acceptable and can be coded in the inpatient setting, when documented at the
time of discharge.
Thank you,
Kaitlin Florez RN, BSN
CDI Specialist
Available via [place] [employer]
Please use your independent medical judgment in providing your response.
[2023-12-11] MEDS: ASPIR LOW (ENTERIC COATED) PO (10:42)
[2023-12-11] MEDS: LOPRESSOR PO (10:43)
[2023-12-11] MEDS: IMDUR (EXTENDED RELEASE) PO (10:43)
[2023-12-11] MEDS: LASIX PO ×2 (10:43→15:44)
[2023-12-11] MEDS: VITAMIN B-12 PO (10:44)
[2023-12-11] MEDS: RENVELA PO ×3 (10:44→18:39)
[2023-12-11] MEDS: VITAMIN D3 (cholecalciferol) PO (10:44)
--- NOTE | 2023-12-11 15:07 | W.DS.TRANS ---
DC Summary - [employer]
-
Discharge Instructions:
Discharge Diagnosis/Procedures GI bleed possibly diverticular
Diet 2 Gram Sodium
Activity As tolerated
Driving Restrictions As prior to admission
Bathing Restrictions None
Instructions:
Stand-Alone Forms:
Changes to Home Medications: No
Discharge Medications:
DC Medications w/original date entered in [employer]
allopurinol 100 mg tablet 100 mg PO HS Gout 08/26/22
atorvastatin 40 mg tablet 40 mg PO HS High cholesterol 08/26/22
metoprolol tartrate 50 mg tablet 50 mg PO BID Heart disease/condition 08/26/22
nitroglycerin 0.4 mg sublingual tablet 0.4 mg sublingual [id number] PRN chest pain #25 tabs 08/26/22
sevelamer HCl 800 mg tablet 1,600 mg PO MEALS Kidney Disease 08/31/22
aspirin 81 mg capsule 81 mg PO DAILY Heart Disease/Condition 03/11/23
amlodipine 5 mg tablet 5 mg PO HS Blood Pressure #0 tabs 03/17/23
calcitriol 0.25 mcg capsule 0.75 mcg PO .HD DAYS Kidney Disease 12/09/23
cholecalciferol (vitamin D3) 25 mcg (1,000 unit) tablet (Vitamin D3) 25 mcg PO DAILY Supplement 12/09/23
cyanocobalamin (vitamin B-12) 100 mcg tablet (Vitamin B-12) 100 mcg PO DAILY Supplement 12/09/23
furosemide 40 mg tablet 40 mg PO BID@0800,1600 Fluid Retention/Swelling 12/09/23
icosapent ethyl 1 gram capsule 1 g PO BID High Cholesterol 12/09/23
isosorbide mononitrate 60 mg tablet,extended release 24 hr 60 mg PO BID Heart Disease/Condition 12/09/23
clopidogrel 75 mg tablet 75 mg PO .SEE BELOW Blood Clot Prevention/Tx #0 tabs 12/11/23
Home Medication Changes
Pending Results: No
--- NOTE | 2023-12-11 15:26 | CM ---
Case management following for d/c planning
Pt for discharge today after HD
Has ride at d/c
Discussed IMM
Plan - anticipate home no needs
[2023-12-11] MEDS: ProAmatine 5 MG PO (15:50)
[2023-12-11] MEDS: FLEXBUMIN 25% FOR HEMODIALYSIS 12.5 GRAMS IV ×2 (16:45→18:15)
[2023-12-11] MEDS: MANNITOL 12.5 GRAMS IV ×2 (16:50→18:24)
--- NOTE | 2023-12-11 16:58 | W.PN.NEPH.HD ---
Assessment
-
some hypotension noted on HD, asymptomatic
feeling well, no complaints
Progress Note - Hemodialysis
-
Date of Service: December 11, 2023
Duration: 30 minutes and 3 hours
Potassium Bath: 3
Calcium Bath: 2.5
Opti-Dialyzer: 160
Ultrafiltration: Other
Blood Flow: 400
Dialysate Flow: 600
[2023-12-11] MEDS: RETACRIT 10000 UNITS IV (17:15)
--- NOTE | 2023-12-11 17:58 | W.DCSUMMARY ---
Discharge Summary
Discharge Data
Date of Admission: 12/09/23
Date of Discharge: 12/11/23
-
Pending Results: No
Hospital Course
Primary diagnosis:
Rectal bleeding suspected diverticular
Secondary diagnosis:
End-stage renal disease on dialysis Thursday
Chronic anemia
Essential hypertension
Chronic diastolic heart failure
Coronary artery disease s/p prior bypass surgery and cardiac stents
Hospital course:
Patient presented with the episodic maroon-colored rectal bleeding which is heme positive. He was hemodynamically stable. His H&H was stable as well. He is on aspirin and Plavix for his coronary artery disease. He was seen by GI who did a
colonoscopy and the findings were as below
Hemorrhoids were found on perianal exam.
The digital rectal exam findings include enlarged prostate.
Multiple diverticula were found in the entire colon.
A localized area of moderately erythematous and hemorrhagic mucosa was
found in the sigmoid colon.
Clinical suspicion was if it was a diverticular bleed. He was continued on aspirin. He was on Plavix as per his filleter. Advised him to touch base with cardiology regarding further need of Plavix as he had remote cardiac stenting. He had
his hemodialysis today prior to discharge.
Consultants on board:
GI-Roseann Escobar
Nephrology-Junior Mccormick
Discharge Plan
-
Patient Disposition: Home (Routine Discharge)
Discharge Diagnosis/Procedures: GI bleed possibly diverticular
Diet: 2 Gram Sodium
Activity: As tolerated
Driving Restrictions: As prior to admission
Bathing Restrictions: None
Referrals:
Lisa Torres MD [Family Provider] - in less than 1 week
Prescriptions:
Continued
atorvastatin 40 mg Tablet
40 mg PO HS
allopurinol 100 mg Tablet
100 mg PO HS
metoprolol tartrate 50 mg Tablet
50 mg PO BID
nitroglycerin 0.4 mg tablet, sublingual
0.4 mg sublingual [id number] PRN (Reason: chest pain) Qty: 25 2RF
sevelamer HCl 800 mg Tablet
1,600 mg PO MEALS
aspirin 81 mg Capsule
81 mg PO DAILY
amlodipine 5 mg Tablet
5 mg PO HS Qty: 0 0RF
furosemide 40 mg tablet
40 mg PO BID@0800,1600
cyanocobalamin (vitamin B-12) [Vitamin B-12] 100 mcg Tablet
100 mcg PO DAILY
isosorbide mononitrate 60 mg tablet extended release 24 hr
60 mg PO BID
cholecalciferol (vitamin D3) [Vitamin D3] 25 mcg (1,000 unit) Tablet
25 mcg PO DAILY
icosapent ethyl 1 gram capsule
1 g PO BID
calcitriol 0.25 mcg Capsule
0.75 mcg PO .HD DAYS
clopidogrel 75 mg Tablet
75 mg PO .SEE BELOW Qty: 0 0RF
Patient Comments:
PRESCRIBED DAILY BUT TAKES MO WE FR ONLY
Rx Instructions:
Discuss with your filleter regarding continued need of it.
Discharge Orders:
Discharge Patient (As Directed); Ordered 12/11/23
Ordered By: Herman Osman
Discharge Date and Time
Print Language: LATVIAN
[2023-12-11] MEDS: NITROSTAT (SUBLINGUAL) 0.400000000000000022 MG SL (21:11)
--- NOTE | 2023-12-11 21:12 | W.PN.UPDATE ---
Update Note
Progress Note Update
Patient complained of chest patient rated 6-8/10 of pain scale at the sternum area, non radiating, described his pain as pressure and burning sensation. Per patient the pain started after eating his dinner and felt that pain decreased from 8 to 6/
10 of pain scale after vomiting x2. Denied SOB, denied history of GERD. Patient had dialysis today. Patient is taking nitroglycerin SL at home for chest pain.
- Vital signs BP 138/64 hr 91, SPO2 99- 100% RA, RR 18 and afebrile.
- Ekg, CBC, BMP, Mag, and Troponin ordered.
- Nitroglycerin SL PRN ordered.
- One dose of pantoprazole and antiemetic ordered.
- Troponin is positive-------> 0.768 will trend and add cardiology consult in am.
- F/ U on the patient he feels comfortable and is free of pain.
[2023-12-11] MEDS: NSS (PRESERVATIVE FREE) 10 ML IV (21:27)
[2023-12-11] MEDS: PROTONIX IV 40 MG IV (21:27)
[2023-12-11] MEDS: ZOFRAN 4 MG IV (21:28)
[2023-12-11 21:35] LABS: % Basophils 0.2 % (0-2); % Immature Granulocytes 0.4 % (0-0.5); % Lymphocytes 19.7 % (20.5-51.1); % Monocytes 7.7 % (1.7-9.3); Absolute Eosinophils 0.1 10^3/uL (0-0.7); Absolute Monocytes 0.4 10^3/uL (0.1-0.6); Absolute Neutrophils 3.7 10^3/uL (1.4-6.5); Hematocrit 28.5 % (39.0-52.0); Hemoglobin 9.5 g/dL (13.0-18.0); Mean Corp Hgb Conc. 33.3 g/dL (33.0-37.0); Mean Corpuscular Hgb 31.7 pg (27.0-31.0); Mean Platelet Volume 12.3 fL (7.4-10.4); Nucleated Red Blood Cells % 0 % (-); Platelet Count 104 10^3/uL (130-400); Red Cell Dist. Width 14.1 % (11.5-14.5); White Blood Cell Count 5.2 10^3/uL (4.8-10.8)
[2023-12-11 21:46] LABS: Blood Urea Nitrogen 22 mg/dl (9-20); Calcium 9.3 mg/dl (8.4-10.2); Carbon Dioxide 25 mmol/L (22-30); Chloride 97 mmol/L (98-107); Estimated Creatinine Clearance 17 ml/min; Glucose 152 mg/dl (70-99); Magnesium 1.9 mg/dl (1.6-2.3); Potassium 3.4 mmol/L (3.5-5.1); Sodium 137 mmol/L (135-145)
[2023-12-11] MEDS: ZYLOPRIM 100 MG PO (21:56)
[2023-12-11] MEDS: LIPITOR 40 MG PO (21:57)
[2023-12-11 21:59] LABS: Troponin I 0.768 ng/ml
[2023-12-12] MEDS: LOPRESSOR PO ×3 (01:18→08:39)
[2023-12-12] MEDS: IMDUR (EXTENDED RELEASE) PO (01:18)
[2023-12-12 03:00] VITALS: BP 110/55
--- NOTE | 2023-12-12 03:36 | PTCARENOTE ---
Pt. finished HD, at bedside. D/c instructions discussed with patient and . Pt. finished dinner tray, this RN removed IV and tele, and patient got dressed to leave. While patient was getting dressed, pt vomited moderate amount of bile and
c/o chest pain. Pt. described pain as 'burning and pressure.' EKG obtained. BP 138/64, HR 91 SpO2 100% on RA. JAYLEEN Roldan notified. GOVERNMENT INSTRUCTOR at bedside to assess patient. Tele placed back on patient. Nitro administered x1. RELIABILITY TECHNICIANS in to place
new IV. Patient vomited moderate amount of bile again. IV protonix and IV zofran administered. Patient reported feeling better. Labs drawn. Troponin resulted at 0.768. JAYLEEN Chaves notified. New order for cardiology consult. After nitro BP 101/50, HR
78, 98.0, 100 RA. No more episodes of vomiting and patient reports chest pain is relieved. D/c held for the night, patient and family agreeable to plan. Call ernst within reach. Plan of care ongoing.
[2023-12-12 06:00] VITALS: BMI 26.5
--- NOTE | 2023-12-12 06:35 | PTCARENOTE ---
Pt. refused AM lab draw. Educated patient on importance of lab draw. Patient said 'I don't want it, I'll be leaving today, I don't need it.' Tried to educate patient again. Patient continued to decline. Plan of care ongoing.
[2023-12-12 07:25] VITALS: BP 112/55
--- NOTE | 2023-12-12 08:14 | CON.CAR ---
Addendum entered and electronically signed by Atif Lutz MD 12/12/23 10:50:
We will sign off please call with questions/concerns.
Addendum entered and electronically signed by Atif Lutz MD 12/12/23 10:49:
I saw and examined the patient.
The CASING WORKER's note was reviewed and I agree with the note.
Comment: 73-year-old male (known to Dr. 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
to the ER 12/09/2023 with a chief complaint of bright red blood per rectum. He had emesis and CP thereafter. He is currently CP free and has known controlled angina. I discussed starting PPI for him and he is agreeable. He agrees CP is well
controlled.
- PPI
Original Note:
Consultation
Consultation Request
Date/Time Consultation Requested: 12/12/2023 00:30
Date/Time Consultation Performed: 12/12/2023 08:15
Requesting Provider: JAYLEEN Roldan
Performing Provider: JAYLEEN Macario for Dr. Lutz
Reason for Consultation: Abnormal troponin
Medical History
-
Chief Complaint: BRBPR
History of Present Illness:
Víctor Bower is a 73-year-old male (known to Dr. 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
presented to the ER 12/09/2023 with a chief complaint of bright red blood per rectum. He hold his clopidogrel on his own after the first episode. Last stenting 07/2022. He had a colonoscopy 12/11/2023 that did not show an active bleed. However
there was a localized area of hemorrhagic erythema in the left colon which was likely the source. Last evening he reported chest pain 6/10 in severity. This was midsternal and anterior. This was nonradiating. He described it as a pressure and
burning sensation. It started after he ate his dinner. He vomited twice and had relief. Troponin found to be abnormal at 0.768. He is refusing further troponin draws. He is currently chest pain-free. He is not having any shortness of breath.
Past Medical History
Past Medical History: CAD, CHF, HTN, Hypercholesterolemia and Renal Failure (ESRD on HD)
Past Surgical History: Appendectomy and Cardiac
Social History
Tobacco: Non-Smoker
Alcohol: None
Drug: None
Living: With Family
Employment: Retired
Family History
Family History: Reviewed & Not Pertinent
Allergies / Home Medications
Allergy/AdvReac Type Severity Reaction Status Date / Time
No Known Allergies Allergy Verified 12/09/23 12:01
�Medication �Instructions �Recorded �Confirmed �Type
allopurinol 100 mg tablet 100 mg PO HS Gout 08/26/22 12/09/23 History
atorvastatin 40 mg tablet 40 mg PO HS High cholesterol 08/26/22 12/09/23 History
metoprolol tartrate 50 mg tablet 50 mg PO BID Heart 08/26/22 12/09/23 History
disease/condition
nitroglycerin 0.4 mg sublingual 0.4 mg sublingual [id number] PRN 08/26/22 12/09/23 Rx
tablet chest pain #25 tabs
sevelamer HCl 800 mg tablet 1,600 mg PO MEALS Kidney Disease 08/31/22 12/09/23 History
aspirin 81 mg capsule 81 mg PO DAILY Heart 03/11/23 12/09/23 History
Disease/Condition
amlodipine 5 mg tablet 5 mg PO HS Blood Pressure #0 tabs 03/17/23 12/09/23 Rx
calcitriol 0.25 mcg capsule 0.75 mcg PO .HD DAYS Kidney Disease 12/09/23 12/09/23 History
cholecalciferol (vitamin D3) 25 25 mcg PO DAILY Supplement 12/09/23 12/09/23 History
mcg (1,000 unit) tablet (Vitamin
D3)
cyanocobalamin (vitamin B-12) 100 100 mcg PO DAILY Supplement 12/09/23 12/09/23 History
mcg tablet (Vitamin B-12)
furosemide 40 mg tablet 40 mg PO BID@0800,1600 Fluid 12/09/23 12/09/23 History
Retention/Swelling
icosapent ethyl 1 gram capsule 1 g PO BID High Cholesterol 12/09/23 12/09/23 History
isosorbide mononitrate 60 mg 60 mg PO BID Heart 12/09/23 12/09/23 History
tablet,extended release 24 hr Disease/Condition
clopidogrel 75 mg tablet 75 mg PO .SEE BELOW Blood Clot 12/11/23 12/09/23 Rx
Prevention/Tx #0 tabs
Review of Systems
-
History Source: Patient
All other systems: Negative unless noted
Respiratory: No Symptoms
Cardiac: No Symptoms
Abdomen/GI: No Symptoms
Physical Exam
Vital Signs
Temp Pulse Resp BP Pulse Ox
98.5 F 77 18 112/55 98
12/12/23 07:25 12/12/23 07:25 12/12/23 07:25 12/12/23 07:25 12/12/23 07:25
Lab Results
Troponin I 0.768 ng/ml H* 12/11/23 21:27
Physical Exam
General: Well Developed, No Apparent Distress and Comfortable
HEENT: Normocephalic, Anicteric and Moist Mucous Membranes
Respiratory: Clear and Non Labored Respirations
Cardiac: S1/S2, Regular Rhythm and Murmur
Breast: Deferred by me
GI: Soft, Non Tender, Non Distended and Normal Bowel Sounds
Rectal: Deferred by Provider
Genito-urinary: No Costovertebral Tender
Musculoskeletal: No Clubbing, No Cyanosis and No Edema
Skin: Warm and Dry
Neuro: AO x 3
Hematologic/Lymphatic: No Lymphadenopathy
Psych: Calm
Impression / Plan
-
Chest pain with abnormal troponin, type unknown
-Currently chest pain-free
-This occurred after eating and then vomiting
-Initial troponin 0.768, unfortunately follow-up troponin has not been drawn due to patient refusal
-He has a nonischemic cause for abnormal troponin as he has end-stage renal disease
CAD
-Prior CABG
-Last cardiac catheterization 02/[address] Brice, noncritical restenosis in the LAD distal to the TRACEY graft touchdown site with multiple layers of stent, no further stenting recommended
-He reports using sublingual nitroglycerin at home once or twice a week. Full relief with 1 sublingual tablet.
-Continue aspirin 81 mg daily
Mitral regurgitation, mild to moderate, slight tethering of the subvalvular chordae
HFpEF, chronic, volume status managed with hemodialysis
Anemia of chronic disease
Aortic stenosis, mild, mean gradient 11 mmHg
ESRD on HD
BRBPR, resolved, on ASA 81 mg and clopidogrel 75 mg MWF
Data Reviewed
-
EKG: Report Reviewed by me (Sinus rhythm, LAFB, rate 82)
Medical Tests (Nuc Med, Echo etc): Report Reviewed by me (Echocardiogram as above)
Labs: Labs Reviewed by me
Old Records: Reviewed (Last office note from primary personal injury paralegal)
[2023-12-12] MEDS: IMDUR (EXTENDED RELEASE) 60 MG PO (08:30)
[2023-12-12] MEDS: ASPIR LOW (ENTERIC COATED) 81 MG PO (08:30)
[2023-12-12] MEDS: RENVELA 1600 MG PO ×2 (08:30→11:45)
[2023-12-12] MEDS: VITAMIN B-12 100 MCG PO (08:30)
[2023-12-12] MEDS: VITAMIN D3 (cholecalciferol) 25 MCG PO (08:30)
[2023-12-12] MEDS: LASIX 40 MG PO ×2 (08:31→15:13)
--- NOTE | 2023-12-12 09:59 | W.PN.HOSP.TC ---
Today's Communication/Plan
-
await cardiology input
Assessment / Plan
Assessment / Plan
# Acute rectal bleeding
Maroon-colored heme positive On presentation.
H&H was stable.
colonoscopy findings
Hemorrhoids were found on perianal exam.
The digital rectal exam findings include enlarged prostate.
Multiple diverticula were found in the entire colon.
A localized area of moderately erythematous and hemorrhagic mucosa was
found in the sigmoid colon.
Suspect possible diverticular bleed. Has resolved now.
Patient on aspirin and Plavix. He has multiple stents and was using Plavix 3 times a week. Advised to follow-up with the drawer in [place] [employer] see if the further need of Plavix as there is increased chance of GI bleeding with combination of aspirin and
Plavix.
#ESRD on dialysis Thursday
-Patient follows with [facility] [place] [phone]
-Dialysis catheter left upper arm
- Patient had full dialysis today 12/09/2023
-Consult nephrology for continued dialysis support while in-house.
-Continue Calcitrol, sevelamer 1600 mg with meals
-Follow BMP
PVCs with ventricular bigeminy.
No arrhythmia. Echocardiogram from Jun 2023 showed EF to be normal. K/ magnesium is okay. Continue with colonoscopy plans.
#Linq device
Follows with drawer in [place] Dr. Mendoza at [facility]
#Chronic anemia secondary to renal disease
#Chronic thrombocytopenia
#HTN�benign
-Continue amlodipine 5 mg at bedtime with hold parameter
-Continue Imdur 60 twice daily, metoprolol tartrate 50 mg twice daily with hold parameters
#Hx chronic diastolic CHF
Monitor I/O, daily weights
-Continue Lasix 40 mg twice daily
#CAD/CABG x 5 vessel
Cardiac stent July 2022
#Hx NSTEMI
-Continue atorvastatin 40 mg at bedtime, aspirin 81 mg daily, Imdur 60 mg twice daily with hold parameters
-Patient held Plavix last 2 days
2D echo 07/16/2023: EF 60 to 65%, hypokinesis basal anteroseptal/inferior septal wall, stage II diastolic dysfunction, mild biatrial enlargement, mild aortic stenosis
Episode of chest pain yesterday sounding like angina. EKG showed bifascicular block and LVH as before. No recurrence of pain. His troponin with an few minutes of onset of pain was 0.7 which I doubt is secondary to 2 his angina and more suspect
probably related to her chronic kidney disease. Pt refusing second measurement.Await cards input.
#HLD
-Continue atorvastatin
# Hx visual loss left eye due to vitreous hemorrhage March 2023
-Vision loss resolved
#Gout
-Continue allopurinol
DVT prophylaxis
SCDs
Full code
DC home if stable from cardiology standpoint
Anticipated Discharge: Today
Subjective/Interval History
-
Date of Service: December 12, 2023
Patient developed central chest pain yesterday after dialysis. He states sublingual nitro promptly relieved the pain in 3 minutes. He had associated nausea. Ever since that episode he had no recurrence of chest pain or nausea. This morning he is
tolerating diet without any issues.
He has a history of angina and he had episodes of chest pain which were relieved with sublingual nitro at home in the past.
No further rectal bleeding .
Objective Data
-
Labs:
Laboratory Results
12/12/23
06:00
WBC Pending
Hgb Pending
Hct Pending
Plt Count Pending
Sodium Pending
Potassium Pending
Chloride Pending
Carbon Dioxide Pending
BUN Pending
Creatinine Pending
Glucose Pending
Calcium Pending
Total Bilirubin Pending
AST Pending
ALT Pending
Alkaline Phosphatase Pending
Vital Signs:
Vital Signs
Temp Pulse Resp BP Pulse Ox
98.5 F 77 18 112/55 98
12/12/23 07:25 12/12/23 07:25 12/12/23 07:25 12/12/23 07:25 12/12/23 07:25
I&O
12/11/23 12/12/23 12/13/23
06:59 06:59 06:59
Intake Total 2840 / 2840 420 / 420 240 / 240
Balance 2840 / 2840 420 / 420 240 / 240
Review of Systems
-
Respiratory: Denies Trouble Breathing
Cardiac: Denies Chest Pain or Palpitations
Abdomen/GI: Denies Abdominal Pain, Nausea or Vomiting
Neuro: Denies Dizzy
Physical Exam
-
General: No Apparent Distress
HEENT: Moist Mucous Membranes
Respiratory: Clear to Auscultation
Cardiac: Regular Rhythm and S1/S2
GI: Soft, Nontender, Nondistended and Normal Bowel Sounds
Neuro: AO x 3
Data Reviewed
-
Labs: Labs Reviewed by me
[2023-12-12 11:40] VITALS: BP 102/55
[2023-12-12] MEDS: PROTONIX 20 MG PO (11:45)
--- NOTE | 2023-12-12 12:09 | CM ---
Case management following for d/c planning
Pt to see cardiology today - d/c pending cards input
Has ride at d/
Plan - anticipate home no needs when medically ready
--- NOTE | 2023-12-12 15:43 | PTCARENOTE ---
PT ordered for DC. PT has follow up with primary care ordered listed only. DC paper work noted to hold plavix and to contact his keyboard teacher to learn next steps of his plavix. Pt is here with GI bleed due to 'diverticular' and his plavix has
been on hold here. PT stated his plavix was for Stent and that he has been on it for 1.5 years. HG stable. Pt very anxious to go home. This am pt refused to have any labs drawN. I spent twenty minutes educating him on purpose of troponins,
EKG and his chest pain. he stated he does not care he will someday anyway. I did alert the MD. PT refused his metoprolol. at bedside
[2023-12-12 15:59] VITALS: BP 116/78
== END 2023-12-12 15:30 | disposition home or self-care (01) | DRG 377 ==
LOC: 3 WEST ACU 14:32
PROVIDERS: Clinical Nurse Specialist Family Health; Internal Medicine; Nurse Practitioner Adult Health; Nurse Practitioner Family; Registered Nurse; Student in an Organized Health Care Education/Training Program; ADMITTING PHYSICIAN Internal Medicine; CONSULT PHYSICIAN Internal Medicine; CONSULT PHYSICIAN Internal Medicine Cardiovascular Disease; EMERGENCY PHYSICIAN Emergency Medicine; FAMILY PHYSICIAN Internal Medicine; OTHER PHYSICIAN Internal Medicine
PROC: 5A1D70Z Performance of Urinary Filtration, Intermittent, Less than 6 Hours Per Day (ICD-10-PCS; 2023-12-11)
PROC: 0DJD8ZZ Inspection of Lower Intestinal Tract, Via Natural or Artificial Opening Endoscopic (ICD-10-PCS; 2023-12-11)
DX: K57.31 Diverticulosis of large intestine without perforation or abscess with bleeding (principal); N18.6 End stage renal disease; I13.2 Hypertensive heart and chronic kidney disease with heart failure and with stage 5 chronic kidney disease, or end stage renal disease; I50.32 Chronic diastolic (congestive) heart failure; J98.11 Atelectasis; D68.32 Hemorrhagic disorder due to extrinsic circulating anticoagulants; I25.119 Atherosclerotic heart disease of native coronary artery with unspecified angina pectoris; E78.00 Pure hypercholesterolemia, unspecified; K21.9 Gastro-esophageal reflux disease without esophagitis; H54.62 Unqualified visual loss, left eye, normal vision right eye; D63.1 Anemia in chronic kidney disease; D69.6 Thrombocytopenia, unspecified; M10.9 Gout, unspecified; G89.29 Other chronic pain; N40.0 Benign prostatic hyperplasia without lower urinary tract symptoms; K80.20 Calculus of gallbladder without cholecystitis without obstruction; N28.1 Cyst of kidney, acquired; K64.9 Unspecified hemorrhoids; K63.89 Other specified diseases of intestine; N26.1 Atrophy of kidney (terminal); E83.39 Other disorders of phosphorus metabolism; I95.9 Hypotension, unspecified; E87.5 Hyperkalemia; Z95.1 Presence of aortocoronary bypass graft; Z95.5 Presence of coronary angioplasty implant and graft; Z99.2 Dependence on renal dialysis; Z79.02 Long term (current) use of antithrombotics/antiplatelets; Z79.82 Long term (current) use of aspirin; I25.2 Old myocardial infarction; Z87.19 Personal history of other diseases of the digestive system
CPT/HCPCS: 80048; 80053; 83735; 84484; 85014; 85018; 85025; 85610; 86850; 86900; 86901; 87070; 93005; 97162; 97166; 99284; G0257; P9047; Q5106

== ENCOUNTER 2023-12-18 17:51 | Inpatient (IN) | payer MEDICARE, OTHER, SELFPAY ==
[2023-12-18 12:47] VITALS: BP 100/42
[2023-12-18 13:14] VITALS: BP 93/56
[2023-12-18 14:00] VITALS: BP 88/59
--- NOTE | 2023-12-18 14:46 | ED.GENMED ---
History of Present Illness
General
Chief Complaint: Abdominal Symptoms
Source: patient and spouse
Exam Limitations: none
Time Seen by Provider: 12/18/23 14:25
Nursing documentation reviewed up to this point in time: agreed with
Travel History
Have you had any contact with someone who has COVID-19?: No
Do you have any symptoms of coronavirus? Fever > 100 degrees, chills, cough, shortness of breath, sore throat, loss of taste or smell, muscle aches, or headache?: No
History of Present Illness
History of Present Illness:
73-year-old male with a past medical history of hypertension, hyperlipidemia, CAD status post CABG, ESRD on dialysis who presents to the emergency room accompanied by his �he was sent over from dialysis for evaluation of hypotension but he is
also complaining of feeling very fatigued, had an episode of vomiting today and is having bright red blood per rectum. Of note patient was admitted to this hospital 12/09/2023 until 12/11/2023�he was admitted for acute GI bleeding suspected to be
related to a diverticular bleed. He had been on aspirin and Plavix but Plavix held due to GI bleeding. Patient has been feeling very weak and short of breath since discharge she says. This is normally he has hypertension but over the past week
since discharge his blood pressures have been running low. Today at dialysis his blood pressure was 87/53 and he was sent to the emergency room for assessment; he did not receive any dialysis. He did have an episode of vomiting earlier today,
nonbloody�she denies any nausea at present. Triage mentions abdominal distention/pain but patient denies these to me. He does report that he has had 2 episodes of bright red blood per rectum today although he says he had not been having GI
bleeding over the past few days. He denies any fever or chills, infectious symptoms. He still makes urine but has not had any urinary symptoms. He denies any other complaints.
Past History
Past History
ED Past Medical History: CAD, GERD, HTN, Hypercholesterolemia, Renal failure (Dorian Wednesday Tai) and Other (Gout)
ED Past Surgical History: Appendectomy and Cardiac (cardiac stent, Open heart)
Social History
Tobacco: Non-smoker
Alcohol: None
Drug: None
Personal:
Living: with family
Review of Systems
Review of Systems
All Other Systems: ROS reviewed and negative except as documented in HPI and ROS
Constitutional: Reports fatigue; Denies fever or chills
EENT: Denies sore throat or runny nose
Respiratory: Reports trouble breathing; Denies cough
Cardiac: Denies chest pain or palpitations
ABD/GI: Reports vomiting and bloody stools; Denies abdominal pain or nausea
: Denies dysuria or flank pain
Musculoskeletal: Denies neck pain or back pain
Neurological: Denies dizzy or headache
Phy Exam
Physical Exam
Physical Exam:
General: Awake, alert, oriented x3; no acute distress
Head: Normocephalic, atraumatic
Eyes: Conjunctiva normal
Throat: Airway intact, handling secretions
Neck: Trachea midline
Lungs: Clear to auscultation bilaterally, no wheezing, rales, rhonchi
Heart: Regular rate and rhythm, no murmurs, gallops, or rubs
Abd: Soft, non distended, nontender
Rectal: Bright red blood on rectal exam
Neuro: Cranial nerves grossly intact, speech fluid
Skin: Somewhat pale
Extremities: Warm and well-perfused; he has left upper extremity fistula with a palpable thrill
Scores
Heart Failure Risk
Heart Failure Risk Score: Not Applicable
Heart Score for Chest Pain Patients
STEMI patient?: Not applicable
Withdrawal Assessment of Alcohol
Withdrawal Assessment Completed?: Not applicable
Course
Orders/Labs/Results
Orders:
Orders
12/18/23 12:38
Electrocardiogram (*1) Urgent
Reason for Study: Chest Pain
EKG- Treatment ONCE
12/18/23 14:25
CR Abdomen, Portable - 1 View Urgent
Reason For Exam: abd pain and distention
12/18/23 14:26
CR Chest Portable - 1 View Urgent
Comment:
Reason For Exam: hypotension
Reason Study Needs to be Portable: Unable to Transport
12/18/23 14:27
0.9% Sodium Chloride 250 ml [Nss] 250 ml IV BOLUS
12/18/23 14:48
Basic Metabolic Panel Urgent
Complete Blood Count/With Diff Urgent
Lactate Level [Lactic Acid] Urgent
Blood Culture Q30M
LASHAY Source: Blood/Venous
Specimen Description:
12/18/23 14:52
Blood Culture Q30M
LASHAY Source: Blood/Venous
Specimen Description:
12/18/23 15:45
Comprehensive Metabolic Panel Urgent
Magnesium Urgent
Phos [Phosphorus] Urgent
12/18/23 16:06
Type+Screen Urgent
BBK Wristband Number:
Abnormal Lab Results
12/18/23
14:48
RBC 2.90 L 10^6/uL
(4.70-6.10)
Hgb 9.5 L g/dL
(13.0-18.0)
Hct 30.4 L %
(39.0-52.0)
MCV 104.8 H fL
(80.0-94.0)
MCH 32.8 H pg
(27.0-31.0)
MCHC 31.3 L g/dL
(33.0-37.0)
RDW 16.0 H %
(11.5-14.5)
Plt Count 112 L 10^3/uL
(130-400)
MPV 12.2 H fL
(7.4-10.4)
Absolute Monos (auto) 0.7 H 10^3/uL
(0.1-0.6)
Immature Gran % 0.6 H %
(0-0.5)
Lymphocytes % 19.3 L %
(20.5-51.1)
Monocytes % 10.5 H %
(1.7-9.3)
BUN 62 H mg/dl
(9-20)
Creatinine 7.4 H* mg/dL
(0.7-1.3)
Glucose 104 H mg/dl
(70-99)
12/18/23 14:48
Vital Signs
Initial and Last Documented VS:
Initial Vital Signs
Temp Pulse Resp BP Pulse Ox
36.7 C 44 22 100/42 92
12/18/23 12:47 12/18/23 12:47 12/18/23 12:47 12/18/23 12:47 12/18/23 12:47
Last Documented Vital Signs
Temp Pulse Resp BP Pulse Ox
36.7 C 68 24 102/60 100
12/18/23 12:47 12/18/23 15:45 12/18/23 15:45 12/18/23 16:00 12/18/23 15:45
MDM/Problems Addressed
Differential Diagnosis Includes:
Hypotension: Hypovolemia either from dehydration or hemorrhage, infection/sepsis, pericardial effusion/obstructive
GI bleed: Diverticular bleed, hemorrhoidal bleed, AVM, polyp
MDM/Problems Addressed:
73-year-old male presents to the emergency room for evaluation of weakness and shortness of breath over the past week as well as low blood pressures, today having bright red blood per rectum. He arrives hypotensive but normal heart rate rest of
vitals normal. Exam as above�notably gross blood on rectal exam. Plan to place an IV check labs including a CBC and a CMP, type and screen. Send lactate and blood cultures. Will check chest x-ray and EKG. Will check abdominal x-ray as there was
a report in triage of distention and he did have 1 episode of vomiting. Will provide 250 cc IV fluid bolus. Reassess after the above.
Patient's blood pressure improved after IV fluids now 102/60. His initial labs were significant for hemoglobin of 9.5 which is stable. His CMP showed findings consistent with ESRD but no marked electrolyte derangements. Lactate less than 2.
Chest x-ray shows questionable mild early heart failure but no clear pneumonia. Abdominal x-ray no signs of obstruction. Patient did have episode of bright red blood per rectum here in the emergency room. His vitals have improved with fluids and
heart rate remains normal. Will plan to admit for trending of hemoglobin and monitoring of bleeding. Case discussed with hospitalist for admission.
Chronic conditions affecting care:
ESRD, CAD
*Radiology
Radiology exam reviewed: preliminary read by ED provider and radiology read reviewed
*Pulse Oximetry
Patient hypoxic: no
*EKG
Interpreted by ED Provider?: Yes
Heart Rate: 67
Rate: normal
Rhythm: sinus and PVC's (Bigeminy)
[place]lin: left axis deviation
QRS Pattern: left bundle branch block
Ischemia: non-specific ST changes
*Critical Care Note
Total Time (30-74mins, 75-104mins- exclusive of procedures): 31
comment:
Critical care statement: A total of 31 minutes of critical care time was provided for this patient. This includes management of unstable vital signs, evaluation of the patient at bedside, frequent reassessment, discussion with
consultants/hospitalist, and review of pertinent medical records. This time was separate from time utilized to perform any aforementioned documented procedures
Data Reviewed
Review of Other/Old Records Reveals: Labs, Records and Discharge Summary
Source: patient, records and spouse
Patient Management
Discussion with other providers: Hospitalist (Discussed with hospitalist)
Escalation/DeEscalation of care consider admission/obs:
Admission indicated
ED Attending Note
-
Portions of this chart may have been created with voice recognition software.� Occasional wrong word or��sound alike� substitutions may have occurred due to the inherent limitations of voice recognition software.
Discharge Plan
Departure
Patient Disposition: Admit
Date of Disposition: 12/18/23
Time of Disposition: 16:23
Admit to doctor: Manav
Presentation/result/management discussed w/ accepting MD/DO: Hospitalist
Discharge Problem:
Hypotension, Dyspnea, GI bleed
Prescriptions:
No Action
atorvastatin 40 mg Tablet
40 mg PO HS
allopurinol 100 mg Tablet
100 mg PO HS
metoprolol tartrate 50 mg Tablet
50 mg PO BID
nitroglycerin 0.4 mg tablet, sublingual
0.4 mg sublingual [id number] PRN (Reason: chest pain) Qty: 25 2RF
sevelamer HCl 800 mg Tablet
800 mg PO MEALS
aspirin 81 mg Capsule
81 mg PO DAILY
furosemide 40 mg tablet
40 mg PO BID@0800,1600
cyanocobalamin (vitamin B-12) [Vitamin B-12] 100 mcg Tablet
100 mcg PO DAILY
isosorbide mononitrate 60 mg tablet extended release 24 hr
60 mg PO BID
cholecalciferol (vitamin D3) [Vitamin D3] 25 mcg (1,000 unit) Tablet
25 mcg PO DAILY
icosapent ethyl 1 gram capsule
1 g PO DAILY
calcitriol 0.25 mcg Capsule
1 mcg PO MOWEFR
pantoprazole [Protonix] 40 mg tablet,delayed release (DR/EC)
40 mg PO DAILY Qty: 30 0RF
Referrals:
Lisa Torres MD [Family Provider] -
Interventions
Interventions:
*Risk Screen - Suicide Last Done: 12/18/23 13:16
*General Assessment Last Done: 12/18/23 13:16
*Neglect/Abuse Screening Last Done: 12/18/23 13:16
*ED COVID-19 Vaccine History Last Done: 12/18/23 13:13
OK-Rwfqqa-[facility]d[place] Assessment Last Done: 12/18/23 13:15
Discharge Date and Time
Print Language: IRANIAN
[2023-12-18] MEDS: NSS 250 IV (14:53)
[2023-12-18 15:02] LABS: % Basophils 0.1 % (0-2); % Eosinophils 1.3 % (0-6); % Immature Granulocytes 0.6 % (0-0.5); % Lymphocytes 19.3 % (20.5-51.1); % Monocytes 10.5 % (1.7-9.3); % Neutrophils 68.2 % (42.2-75.2); Absolute Eosinophils 0.1 10^3/uL (0-0.7); Absolute Lymphocytes 1.3 10^3/uL (1.2-3.4); Absolute Monocytes 0.7 10^3/uL (0.1-0.6); Absolute Neutrophils 4.5 10^3/uL (1.4-6.5); Hematocrit 30.4 % (39.0-52.0); Hemoglobin 9.5 g/dL (13.0-18.0); Mean Corp Hgb Conc. 31.3 g/dL (33.0-37.0); Mean Corpuscular Hgb 32.8 pg (27.0-31.0); Mean Corpuscular Volume 104.8 fL (80.0-94.0); Mean Platelet Volume 12.2 fL (7.4-10.4); Nucleated Red Blood Cells % 0 % (-); Platelet Count 112 10^3/uL (130-400); White Blood Cell Count 6.7 10^3/uL (4.8-10.8)
[2023-12-18 15:12] LABS: Lactic Acid 1.6 mmol/L (0.7-2.0)
[2023-12-18 15:31] LABS: Blood Urea Nitrogen 62 mg/dl (9-20); Calcium 9.1 mg/dl (8.4-10.2); Carbon Dioxide 22 mmol/L (22-30); Chloride 103 mmol/L (98-107); Glucose 104 mg/dl (70-99); Sodium 137 mmol/L (135-145)
[2023-12-18 16:00] VITALS: BP 102/60
[2023-12-18 16:38] LABS: ALT (SGPT) 17 U/L (0-50); AST (SGOT) 17 U/L (17-59); Albumin 3.5 g/dl (3.5-5.0); Alkaline Phosphatase 136 U/L (38-126); Blood Urea Nitrogen 62 mg/dl (9-20); Calcium 9.4 mg/dl (8.4-10.2); Carbon Dioxide 18 mmol/L (22-30); Chloride 105 mmol/L (98-107); Glucose 108 mg/dl (70-99); Magnesium 2.1 mg/dl (1.6-2.3); Sodium 140 mmol/L (135-145); Total Bilirubin 0.5 mg/dl (0.2-1.3); Total Protein 5.5 g/dl (6.3-8.2); eGFR 6.65
--- NOTE | 2023-12-18 16:38 | HPS.HSE ---
Family Physician
-
Family Physician: Lisa Torres
Chief Complaint
-
Dizziness, hypotension, bright red blood per rectum
History of Present Illness
73-year-old male complaining of feeling fatigued with episode of vomiting today and bright red blood per rectum with solid brown bowel movement today and 4 days ago x 1 episode. He reports he feels lightheaded with walking and standing.. He was
sent over from dialysis for which he did not have today due to hypotension 87/53. He also reports feeling weak and short of breath since discharge on 12/12/2023. He had follow-up with his call center representative at [facility] yesterday 12/17/2023 with
plan for a right and left-sided heart catheterization but no scheduled date. He also had follow-up with his GI doctor on December 11 Dr. Spaulding at [facility] after his discharge. He denies headache, fever, chills, chest pain, palpitations,
cough, abdominal pain, nausea, diarrhea, urinary symptoms
The patient had a recent admission 12/08 - 12/12/2023 for rectal bleeding likely secondary to diverticular bleed . He reports not taking Plavix and aspirin due to GI bleed this month he does have history of cardiac stents last one being July 2022.
Patient is past medical history of diverticular bleed 12/09/2023, end-stage renal disease dialysis Thursday, HTN, Linq device, chronic anemia secondary to renal disease, chronic thrombocytopenia, chronic diastolic CHF, CAD/CABG x 5
vessel, NSTEMI with cardiac stent July 2022, HLD, visual loss left eye due to vitreous hemorrhage March 2023 left eye vision resolved, gout.
Medical History
Past Medical History
Past Medical History: Reports Other
Additional Past Medical History:
CAD status post CABG x 5 vessel/cardiac stent
chronic diastolic CHF
end-stage renal disease on dialysis Thursday
Chronic anemia/thrombocytopenia
HTN
HLD
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
gout
Past Surgical History: Reports Other
Additional Past Surgical History:
CAD status post CABG x 5 vessel/cardiac stent
Appendectomy
Colonoscopy May 2022 with benign polypectomy x 2
Social History
Tobacco: Non-smoker
Alcohol: None
Drug: None
Personal:
Living: With Family ()
Employment: Retired
Family History
Family History: Not pertinent
Allergies / Home Medications
Allergies reflects when Allergies were last updated in [employer].
Home Medications with original date entered in [employer]
Allergy/Medication List:
Allergies
Allergy/AdvReac Type Severity Reaction Status Date / Time
No Known Allergies Allergy Verified 12/18/23 12:47
Home Medications
allopurinol 100 mg tablet 100 mg PO HS Gout 08/26/22
atorvastatin 40 mg tablet 40 mg PO HS High cholesterol 08/26/22
metoprolol tartrate 50 mg tablet 50 mg PO BID Heart disease/condition 08/26/22
nitroglycerin 0.4 mg sublingual tablet 0.4 mg sublingual [id number] PRN chest pain #25 tabs 08/26/22
sevelamer HCl 800 mg tablet 800 mg PO MEALS Kidney Disease 08/31/22
aspirin 81 mg capsule 81 mg PO DAILY Heart Disease/Condition 03/11/23
calcitriol 0.25 mcg capsule 1 mcg PO MOWEFR Kidney Disease 12/09/23
cholecalciferol (vitamin D3) 25 mcg (1,000 unit) tablet (Vitamin D3) 25 mcg PO DAILY Supplement 12/09/23
cyanocobalamin (vitamin B-12) 100 mcg tablet (Vitamin B-12) 100 mcg PO DAILY Supplement 12/09/23
furosemide 40 mg tablet 40 mg PO BID@0800,1600 Fluid Retention/Swelling 12/09/23
icosapent ethyl 1 gram capsule 1 g PO DAILY High Cholesterol 12/09/23
isosorbide mononitrate 60 mg tablet,extended release 24 hr 60 mg PO BID Heart Disease/Condition 12/09/23
pantoprazole 40 mg tablet,delayed release (Protonix) 40 mg PO DAILY #30 tabs 12/12/23
Review of Systems
-
History Source: Patient and Family ()
A 12 point ROS was completed and negative except as noted: Yes
Constitutional: Reports Fatigue; Denies Fever
EENT: Denies Sore Throat or Runny Nose
Respiratory: Reports Trouble Breathing (Chronic NI); Denies Cough
Cardiac: Denies Chest Pain, Diaphoresis or Palpitations
Abdomen/GI: Reports Bloody Stools (Bright red x 2 episodes); Denies Abdominal Pain, Nausea, Vomiting, Diarrhea or Constipated
: Denies Dysuria, Frequency, Flank Pain, Incontinence, Difficulty Voiding or Urgency
Musculoskeletal: Denies Joint Pain or Edema
Skin: Denies Itching or Rash
Neurological: Reports Dizzy; Denies Headache or Weakness
Endocrine: Reports No Symptoms
Hematologic/Lymphatic: Reports No Symptoms
Psych: Reports Calm
Physical Exam
Vital Signs
Vital Signs
Temp Pulse Resp BP Pulse Ox
98.1 F 68 24 102/60 100
12/18/23 12:47 12/18/23 15:45 12/18/23 15:45 12/18/23 16:00 12/18/23 15:45
Physical Exam
General: Comfortable and Conversant; No Fever or Chills
HEENT: NormoCephalic, Anicteric, Moist mucous membranes, PERRLA, [place] Conjunctivae and No Ptosis
Respiratory: Clear; No Wheezes, Rales or Rhonchi
Cardiac: S1/S2 and Regular Rhythm; No Murmur, Rub, Gallop or Peripheral Edema
Breast: Deferred by me
GI: Soft, Non Tender, Non Distended, Normal Bowel Sounds and No Hepatosplenomegaly
Genito-urinary: Deferred by me
Musculoskeletal: No Clubbing, No Cyanosis and No Edema
Skin: Warm, Dry and IV/Catheter Site (Dialysis site left upper extremity positive thrill); No Rash
Neuro: AO x 3, No Motor Deficits, Nonfocal/grossly intact, Cranial Nerves Intact and No Sensory Deficits; No Slurred Speech, Facial Droop or Tremors
Psych: Calm
Laboratory Results
-
12/18/23 14:48
Laboratory Results
Lactic Acid 1.6 mmol/L (0.7-2.0) 12/18/23 14:48
Total Bilirubin Cancelled 12/18/23 14:48
AST Cancelled 12/18/23 14:48
ALT Cancelled 12/18/23 14:48
Alkaline Phosphatase Cancelled 12/18/23 14:48
Impression/Plan
-
Impression/plan:
Admit to telemetry
# Bright red blood per rectum with recent diverticular bleed 12/09/2023
Hgb 9.5 appears baseline
-Patient follows with Dr. Spaulding GI at [place] did see on December 12, 2023 post discharge
-Consult GI
-Patient no longer taking Plavix and aspirin
-Follow CBC
-Type and screen
Colonoscopy 12/11/2023: Localized area of hemorrhagic erythema in the left colon which was likely the source thought to be diverticular.
Unspecified hemorrhoids, hemorrhage of anus and rectum, diverticulosis of large intestine without perforation or
abscess without bleeding, benign BPH
#Acute hypotension
87/53 at dialysis today > 110/60 post to 50 cc IV NSS
-Hold furosemide 40 mg twice daily, Imdur 60 mg twice daily, metoprolol tartrate 50 mg twice daily
#ESRD on dialysis Thursday
-Patient follows with [place] [facility] nephro [phone]
- states he had recent CT abdomen December 01 to evaluate kidneys which showed a stone she is unsure what side
-Dialysis catheter left upper arm
Creat 7.9
-Consult Nephrology
Patient did not have dialysis today 12/18/2023 due to hypotension
-Continue Calcitrol, sevelamer 1600 mg with meals
-Follow BMP
#Linq device
Follows with call center representative Dr. Mendoza at [facility]
#Chronic anemia secondary to renal disease
#Chronic thrombocytopenia
Hgb 9.5
PLT 112
#Hx chronic diastolic CHF
Monitor I/O, daily weights
-Hold Lasix 40 mg twice daily due to hypotension
#CAD/CABG x 5 vessel
Cardiac stent July 2022
#Hx NSTEMI
-Had recent eval by Shailesh Roger [facility] yesterday 12/16/2023 is planned for right and left-sided heart cath at later date
Did have echo in office at [facility] yesterday
-Continue atorvastatin 40 mg at bedtime
-Hold Imdur 60 mg twice daily with hold parameters
-Patient no longer taking Plavix and aspirin due to recent diverticular bleed
2D echo 07/16/2023: EF 60 to 65%, hypokinesis basal anteroseptal/inferior septal wall, stage II diastolic dysfunction, mild biatrial enlargement, mild aortic stenosis
#HLD
-Continue atorvastatin
# Hx visual loss left eye due to vitreous hemorrhage March 2023
-Vision loss resolved
#Gout
-Continue allopurinol
DVT prophylaxis
SCDs
Full code
--- NOTE | 2023-12-18 17:44 | W.CON.NEPH ---
Consultation
-
Date/Time Consultation Requested: December 18, 2023 5 PM
Date/Time Consultation Performed: December 18, 2023 5:45 PM
Requesting Provider: Dr Pacheco
Performing Provider: Dr. Duran
Reason for Consultation: ESRD
Medical History
-
Chief Complaint: Rectal bleeding
History of Present Illness:
73yo M with hx CAD with prior CABGx5 and stents last 2022 on chronic Plavix, ASA, Imdur, DCHF on lasix, HTN on Amlodipine, BB, hypercholesterolemia on statin, diverticulosis, ESRD on HD MWF at [facility] , prior PD stopped after
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
Recently had dose on hospital last week with GI bleeding. Had colonoscopy. His bleeding had stopped. He had then been discharged. He received dialysis as outpatient unit at [place] without issue. However today when he went he did not feel
well and was noted to be hypotensive. He vomited on dialysis. He also reported he had bloody bowel movement today. As a result the dialysis unit recommended he go to the emergency room and so his brought him here. He did not receive
dialysis today. His hemoglobin was 9.5 today's potassium 5.0. His blood pressure in a slight reverse Trendelenburg position was improved.
Past Medical History
CAD status post CABG x 5 vessel/cardiac stent
chronic diastolic CHF
end-stage renal disease on dialysis Thursday
Chronic anemia/thrombocytopenia
HTN
HLD
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
gout
SHPTH
Hyperphosphatemia
prior PD stopped after peritonitis
Left UE AVF
Past Surgical History: Other (CAD status post CABG x 5 vessel/cardiac stent Appendectomy Colonoscopy May 2022 with benign polypectomy x 2)
Social History
Tobacco: Non-Smoker
Alcohol: None
Personal:
Living: With Family
Family History
Family History: Not Pertinent
Allergies / Home Medications
Allergy/AdvReac Type Severity Reaction Status Date / Time
No Known Allergies Allergy Verified 12/18/23 12:47
�Medication �Instructions �Recorded �Confirmed �Type
allopurinol 100 mg tablet 100 mg PO HS Gout 08/26/22 12/18/23 History
atorvastatin 40 mg tablet 40 mg PO HS High cholesterol 08/26/22 12/18/23 History
metoprolol tartrate 50 mg tablet 50 mg PO BID Heart 08/26/22 12/18/23 History
disease/condition
nitroglycerin 0.4 mg sublingual 0.4 mg sublingual [id number] PRN 08/26/22 12/18/23 Rx
tablet chest pain #25 tabs
sevelamer HCl 800 mg tablet 800 mg PO MEALS Kidney Disease 08/31/22 12/18/23 History
aspirin 81 mg capsule 81 mg PO DAILY Heart 03/11/23 12/18/23 History
Disease/Condition
calcitriol 0.25 mcg capsule 1 mcg PO MOWEFR Kidney Disease 12/09/23 12/18/23 History
cholecalciferol (vitamin D3) 25 25 mcg PO DAILY Supplement 12/09/23 12/18/23 History
mcg (1,000 unit) tablet (Vitamin
D3)
cyanocobalamin (vitamin B-12) 100 100 mcg PO DAILY Supplement 12/09/23 12/18/23 History
mcg tablet (Vitamin B-12)
furosemide 40 mg tablet 40 mg PO BID@0800,1600 Fluid 12/09/23 12/18/23 History
Retention/Swelling
icosapent ethyl 1 gram capsule 1 g PO DAILY High Cholesterol 12/09/23 12/18/23 History
isosorbide mononitrate 60 mg 60 mg PO BID Heart 12/09/23 12/18/23 History
tablet,extended release 24 hr Disease/Condition
pantoprazole 40 mg tablet,delayed 40 mg PO DAILY #30 tabs 12/12/23 12/18/23 Rx
release (Protonix)
Review of Systems
-
No chest pain or shortness of breath. No fever. No abdominal pain. Bright red blood per rectum as above.
All other systems: Negative unless noted
Physical Exam
Vital Signs
Vital Signs
Temp Pulse Resp BP Pulse Ox
98.1 F 68 24 102/60 100
12/18/23 12:47 12/18/23 15:45 12/18/23 15:45 12/18/23 16:00 12/18/23 15:45
Lab Results
WBC 6.7 10^3/uL (4.8-10.8) 12/18/23 14:48
RBC 2.90 10^6/uL (4.70-6.10) L 12/18/23 14:48
Hgb 9.5 g/dL (13.0-18.0) L 12/18/23 14:48
Hct 30.4 % (39.0-52.0) L 12/18/23 14:48
Plt Count 112 10^3/uL (130-400) L 12/18/23 14:48
Sodium 140 mmol/L (135-145) 12/18/23 15:45
Potassium 5.0 mmol/L (3.5-5.1) 12/18/23 15:45
Chloride 105 mmol/L (98-107) 12/18/23 15:45
Carbon Dioxide 18 mmol/L (22-30) L 12/18/23 15:45
BUN 62 mg/dl (9-20) H 12/18/23 15:45
Creatinine 7.9 mg/dL (0.7-1.3) H* 12/18/23 15:45
eGFR 6.65 12/18/23 15:45
Glucose 108 mg/dl (70-99) H 12/18/23 15:45
Calcium 9.4 mg/dl (8.4-10.2) 12/18/23 15:45
Phosphorus 6.0 mg/dl (2.5-4.5) H 12/18/23 15:45
Albumin 3.5 g/dl (3.5-5.0) 12/18/23 15:45
Physical Exam
Patient is awake alert oriented and in no distress. Mood and affect were pleasant, insight and judgment were good. Pupils are equal round and reactive to light, extraocular movements are intact, sclera were anicteric. Hearing was normal, ears and
nose are intact. Oropharynx was clear. Neck was supple with trachea midline and no thyromegaly. Heart was regular rate and rhythm without rubs. Lower extremities without edema. Lungs were clear to auscultation bilaterally and with normal
excursion. Abdomen was soft, nontender, with normal active bowel sounds, and no hepatosplenomegaly. Skin was without rash and with normal turgor. AV fistula in the left upper arm was with good thrill and bruit
Data Reviewed
-
Radiology: Image Personally Visualized and interpreted (Chest x-ray on 12/18/2023 by my reading shows mild vascular prominence only)
Medical Tests (Nuc Med, Echo etc): Image Personally Visualized and interpreted (EKG on December 18, 2023 by my reading shows normal sinus rhythm right bundle branch block left anterior fascicular block LVH)
Labs: Labs Reviewed by me (Hemoglobin 9.5, potassium 5.0, creatinine 7.9, BUN 62)
Old Records: Reviewed (Hemoglobin on 12/11/2023 was 9.5)
Assessment/Plan
-
IMP:
Acute rectal bleeding
ESRD on dialysis Thursday -[facility] nephro [phone]
Linq device-solution strategist Dr. Mendoza at [facility]
Acute on Chronic anemia secondary to renal disease
Chronic thrombocytopenia
HTN�benign
Hx chronic diastolic CHF
CAD/CABG x 5 vessel
Cardiac stent July 2022
2D echo 07/16/2023: EF 60 to 65%, hypokinesis basal anteroseptal/inferior septal wall, stage II diastolic dysfunction, mild biatrial enlargement, mild aortic stenosis
HLD
Hx visual loss left eye due to vitreous hemorrhage March 2023
Gout
PLan:
Hold blood pressure medicines
Transfuse as needed
follow hemoglobin
Plan for dialysis tomorrow
--- NOTE | 2023-12-18 18:37 | PTCARENOTE ---
pt arrived from ED at this time.
[2023-12-18 18:51] VITALS: BP 113/63
--- NOTE | 2023-12-18 19:34 | W.PN.UPDATE ---
Update Note
Progress Note Update
This note serves as an addendum to the H&P by Shakira CLEMENS on December 18, 2023.
History of Presenting Illness
73-year-old male with past medical history of diverticular bleed 12/09/2023, end-stage renal disease dialysis Thursday, HTN, Linq device, chronic anemia secondary to renal disease, chronic thrombocytopenia, chronic diastolic CHF,
CAD/CABG x 5 vessel, NSTEMI with cardiac stent July 2022, HLD, visual loss left eye due to vitreous hemorrhage March 2023 left eye vision resolved and gout presented with vomiting, and dark red blood bowel movement 4 days ago, and now again
today. he also reported feeling lightheaded. He was supposed to get dialysis today but did not due to hypotension. He was discharged with rectal bleeding from just about a week ago, he was found to have as per colonoscopy, multiple diverticula
in the entire colon, and a localized area of moderately erythematous and hemorrhagic mucosa in the sigmoid colon. He had follow-up with his accountant assistant at [facility] on 12/17/2023 with plan for a right and left-sided heart catheterization
but no scheduled date. He also had follow-up with his GI doctor on December 11 Dr[address] Spaulding at [facility] after his recent discharge.
Physical Exam
General: Not in acute distress
HEENT: Normocephalic, Moist mucous membranes
Respiratory: CTAB
Cardiac: S1/S2 and Regular Rhythm
GI: Soft, Non Tender, Non Distended, Normal Bowel Sounds
Musculoskeletal: No Cyanosis and No Edema
Skin: Warm, Dry and IV/Catheter Site (Dialysis site left upper extremity positive thrill)
Neuro: AAO x 3, No Motor Deficits, Nonfocal/grossly intact, Cranial Nerves Intact and No Sensory Deficits; No Slurred Speech, Facial Droop or Tremors
Psych: Calm
Assessment/Plan
#Dark red blood per rectum with recent diverticular bleed 12/09/2023
#Hemorrhoids
#Moderately erythematous and hemorrhagic mucosa in the sigmoid colon on recent colonoscopy
-Hgb 9.5 appears somewhat less than baseline
-Patient follows with Dr. Spaulding GI at [place] did see on December 12, 2023 post discharge
-Consulted GI, recommendations appreciated
-Patient no longer taking Plavix and aspirin
-Follow CBC
-Type and screen ordered
-Patient signed for consent for blood transfusion if needed
#Hypotension - resolved
-Blood pressure 87/53 at dialysis today > 110/60 after some IV fluids in the ER on December 18, 2023
-Hold furosemide 40 mg twice daily for now
-Continue Imdur 60 mg twice daily
-Continue Metoprolol tartrate 50 mg twice daily with parameters
#ESRD on dialysis Thursday
-Patient follows with [facility] nephro [phone]
- states he had recent CT abdomen December 01 to evaluate kidneys which showed a stone she is unsure what side
-Dialysis catheter left upper arm
-Consulted Nephrology, recommendations appreciated
-Patient did not have dialysis on 12/18/2023 due to hypotension
-Continue Calcitrol, sevelamer 1600 mg with meals
-Follow BMP
#Linq device
Follows with accountant assistant Dr. Mendoza at [facility]
#Chronic anemia secondary to renal disease
#Chronic thrombocytopenia
Hgb 9.5
PLT 112
#History of chronic diastolic CHF
-Monitor I/O, daily weights
-Hold Lasix 40 mg twice daily due to hypotension
#CAD/CABG x 5 vessel
#Cardiac stent July 2022
#Hx NSTEMI
-[facility] - is planned for right and left-sided heart cath at later date - per report, did have echo in office at [facility] yesterday
-Continue atorvastatin 40 mg at bedtime
-Resume Imdur 60 mg twice daily with hold parameters
-Patient no longer taking Aspirin and Plavix due to recent diverticular bleed
2D echo 07/16/2023: EF 60 to 65%, hypokinesis basal anteroseptal/inferior septal wall, stage II diastolic dysfunction, mild biatrial enlargement, mild aortic stenosis
#HLD
-Continue atorvastatin
# Hx visual loss left eye due to vitreous hemorrhage March 2023
-Vision loss resolved
#Gout
-Continue allopurinol
#Enlarged Prostate
DVT prophylaxis: SCDs only due to bleeding
Full code
[2023-12-18] MEDS: RENVELA 800 MG PO (19:40)
[2023-12-18] MEDS: ROCALTROL 1 MCG PO (19:40)
[2023-12-18 20:19] LABS: Troponin I 0.978 ng/ml
--- NOTE | 2023-12-18 21:00 | PTCARENOTE ---
Patient had a Troponin of 0.978. VSS, he denies pain. Advised JAYLEEN Cruz. EKG done as ordered and reviewed by same. Next Troponin is due at 0145.
[2023-12-18] MEDS: ZYLOPRIM 100 MG PO (22:13)
[2023-12-18] MEDS: LIPITOR 40 MG PO (22:13)
[2023-12-18 23:13] VITALS: BP 106/58
[2023-12-19] VITALS (7 sets, daily range): BP systolic 102–116; BP diastolic 40–67; BMI 27.6
[2023-12-19 02:25] LABS: Troponin I 0.934 ng/ml
--- NOTE | 2023-12-19 02:49 | PTCARENOTE ---
2nd Troponin in series was slightly less than first at 0.934. Patient is sleeping in no apparent pain. Advised JAYLEEN Cruz. Next Troponin in series is ordered for 0745.
--- NOTE | 2023-12-19 06:49 | CON.GI ---
Addendum entered and electronically signed by Agnes Rogers Do, MD 12/19/23 12:05:
I saw and examined the patient.
The PACKER SAUSAGE AND WIENER's note was reviewed and I agree with the note.
Comment: Víctor is a 73yo M with h/o CAD s/p CABG 2022 on chronic Plavix, CHF, mild and ESRD on HD who presents b/c when he went for hemodialysis on Thursday it could not be done due to hypotension and hematochezia. He was just admitted for the
same at 12/08-12/10 where he had a colonoscopy done that showed medium sized hemorrhoids, tics and sigmoid erythema. Exam was limited due to patient non tolerance of sedation. He tells me he has h/o straining sitting over toilet with newspaper.
He also had straining and at times BRBPR on toilet paper or in the toilet bowel. Blood is not mixed into the stool. At times blood also found in his underwear. Vitals reviewed and no normotensive VSS. NTTP, NABS. on HD unable to do rectal exam.
Labs reviewed Hbg 8.2
Impression
- BRBPR
Suspect hemorrhoidal. Less likely diverticular
- Chronic anemia
Iron panel suggests anemia of chronic disease
- ESRD on HD
- CAD s/p CABG 2022 on plavix (last 12/06)
- CHF
- Mild
- Gout
Recommendations
- Serial H/H
- Anusol supp ME BID
- Miralax daily
- Full liquid diet
- Add on vit B12 and folate
- Monitor stool output
- Consider EGD/flex sigm with possible banding on Thursday if bleeding or anemia persists
Will follow with you
Original Note:
Consultation
-
Date/Time Consultation Requested: 12/19/23 1530
Date/Time Consultation Performed: 12/19/23 0730
Requesting Provider: JAYLEEN Casanova
Performing Provider: JAYLEEN Borges, Agnes Whelan MD
Reason for Consultation: rectal bleeding
Medical History
Chief Complaint / HPI
Chief Complaint: rectal bleeding
History of Present Illness:
Pt is a 73yo with hx CAD with prior CABG and stents last 2022 on chronic Plavix, CHF, /MR HTN, hypercholesterolemia, diverticulosis, ESRD on HD, prior PD stopped after peritonitis, visual loss, possible early prostate CA, thrombocytopenia,
anemia, colon polyps with onset of rectal bleeding. He was admitted 12/08-12/10 with rectal bleeding passing maroon colored stools. On admission he had hbg of 9.8 with BUN of 29 with concern of diverticular bleeding passing about 2 stools daily for
2-3 days prior to admission. He proceeded for colonoscopy 12/[address] Alfaro with medium sized hemorrhoids, enlarged prostate, diverticulosis, erythema in sigmoid. Pt was discharged. He was to discuss ongoing Plavix therapy with his primary
surveyor as he had weaned medication down to 3 times per week several months ago. He now returns with Fatigue, episode of vomiting and rectal bleeding. He was noted with hypotension with dialysis and some recurrent rectal bleeding with
reported no other bleeding since discharge. On return hbg 9.5 with BUN up to 62.
In review with patient he admits to normal stools for several days after last admission. He then started with small amount of blood on night then larger amount red/burgundy Thursday with some clots with dizziness. He has been off Plavix
since prior to last admission just ASA. In past week after admission he did have follow up with Dr. carlito FRAUSTO from [facility] with agreement of likely diverticular bleed and follow with cardiology at [place] with plan for cardiac cath with 3-4
weeks of chest pain and shortness of breath. Date has not been set yet. Pt admits to some dizziness with hypotension with dialysis and vomiting yesterday AM mostly breakfast but no blood or black in emesis. heartburn with activity but denies
dysphagia, abdominal pain, diarrhea or constipation. No prior Endoscopy.
Past Medical History
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
thrombocytopenia, diverticulosis, hemorrhoids, recent GI bleeding )
Past Surgical History: Appendectomy and Cardiac (CABG/stents - LAD 07/2022, linq device)
Social History
Tobacco: Non-Smoker
Alcohol: None
Drug: None
Personal:
Living: With Family
Employment: Retired
Family History
Family History: Other (no family hx colon Ca or polyps )
Allergies / Home Medications
Allergy/AdvReac Type Severity Reaction Status Date / Time
No Known Allergies Allergy Verified 12/18/23 12:47
�Medication �Instructions �Recorded
allopurinol 100 mg tablet 100 mg PO HS Gout 08/26/22
atorvastatin 40 mg tablet 40 mg PO HS High cholesterol 08/26/22
metoprolol tartrate 50 mg tablet 50 mg PO BID Heart 08/26/22
disease/condition
nitroglycerin 0.4 mg sublingual 0.4 mg sublingual [id number] PRN 08/26/22
tablet chest pain #25 tabs
sevelamer HCl 800 mg tablet 800 mg PO MEALS Kidney Disease 08/31/22
aspirin 81 mg capsule 81 mg PO DAILY Heart 03/11/23
Disease/Condition
calcitriol 0.25 mcg capsule 1 mcg PO MOWEFR Kidney Disease 12/09/23
cholecalciferol (vitamin D3) 25 25 mcg PO DAILY Supplement 12/09/23
mcg (1,000 unit) tablet (Vitamin
D3)
cyanocobalamin (vitamin B-12) 100 100 mcg PO DAILY Supplement 12/09/23
mcg tablet (Vitamin B-12)
furosemide 40 mg tablet 40 mg PO BID@0800,1600 Fluid 12/09/23
Retention/Swelling
icosapent ethyl 1 gram capsule 1 g PO DAILY High Cholesterol 12/09/23
isosorbide mononitrate 60 mg 60 mg PO BID Heart 12/09/23
tablet,extended release 24 hr Disease/Condition
pantoprazole 40 mg tablet,delayed 40 mg PO DAILY #30 tabs 12/12/23
release (Protonix)
Review of Systems
-
History Source: Patient
Constitutional: Reports No Symptoms
Respiratory: Reports Cough and Trouble Breathing
Cardiac: Reports Chest Pain
Abdomen/GI: Reports Bloody Stools (burgundy)
: Reports No Symptoms
Musculoskeletal: Reports No Symptoms
Skin: Reports No Symptoms
Neurological: Reports Dizzy and Weakness
Endocrine: Reports No Symptoms
Hematologic/Lymphatic: Reports Bleeding
Vital Signs
Temp Pulse Resp BP Pulse Ox
98.5 F 71 16 106/63 96
12/19/23 03:44 12/19/23 03:44 12/19/23 03:44 12/19/23 03:44 12/19/23 03:44
Physical Exam
Exam
General: Well Developed, Well Nourished and No Apparent Distress
HEENT: Normocephalic and Anicteric
Respiratory: Clear
Cardiac: Regular Rhythm
GI: Soft, Non Tender and Non Distended
Rectal: Other (ER rectal bright red blood )
Musculoskeletal: No Clubbing and No Cyanosis
Neuro: Awake, Alert and AO x 3
Psych: Calm
Results
WBC 6.7 10^3/uL (4.8-10.8) 12/18/23 14:48
Hgb 9.5 g/dL (13.0-18.0) L 12/18/23 14:48
Hct 30.4 % (39.0-52.0) L 12/18/23 14:48
MCV 104.8 fL (80.0-94.0) H 12/18/23 14:48
Plt Count 112 10^3/uL (130-400) L 12/18/23 14:48
Absolute Neuts (auto) 4.5 10^3/uL (1.4-6.5) 12/18/23 14:48
Sodium 140 mmol/L (135-145) 12/18/23 15:45
Potassium 5.0 mmol/L (3.5-5.1) 12/18/23 15:45
Chloride 105 mmol/L (98-107) 12/18/23 15:45
Carbon Dioxide 18 mmol/L (22-30) L 12/18/23 15:45
BUN 62 mg/dl (9-20) H 12/18/23 15:45
Creatinine 7.9 mg/dL (0.7-1.3) H* 12/18/23 15:45
Calcium 9.4 mg/dl (8.4-10.2) 12/18/23 15:45
Total Bilirubin 0.5 mg/dl (0.2-1.3) 12/18/23 15:45
AST 17 U/L (17-59) 12/18/23 15:45
ALT 17 U/L (0-50) 12/18/23 15:45
Alkaline Phosphatase 136 U/L (38-126) H 12/18/23 15:45
Diagnostic Image Results:
Prior GI Procedures:
EGD: none
Colonoscopy: 12/[address] Alfaro with medium sized hemorrhoids, enlarged prostate, diverticulosis, erythema in sigmoid.
colonoscopy: 2021 [place] + polyps
Assessment / Plan
-
Pt is a 73yo with hx CAD with prior CABG and stents last 2022 on chronic Plavix, CHF, /MR, HTN, hypercholesterolemia, diverticulosis, ESRD on HD, prior PD stopped after peritonitis, visual loss, possible early prostate CA, thrombocytopenia,
anemia, colon polyps with onset of rectal bleeding. He was admitted 12/08-12/10 with rectal bleeding passing maroon colored stools. On admission he had hbg of 9.8 with BUN of 29 with concern of diverticular bleeding passing about 2 stools daily for
2-3 days prior to admission. He proceeded for colonoscopy 12/[address] Alfaro with medium sized hemorrhoids, enlarged prostate, diverticulosis, erythema in sigmoid. Pt was discharged. He was to discuss ongoing Plavix therapy with his primary
surveyor as he had weaned medication down to 3 times per week several months ago. He now returns with Fatigue, episode of vomiting and rectal bleeding. He was noted with hypotension with dialysis and some recurrent rectal bleeding with
reported no other bleeding since discharge. On return hbg 9.5 with BUN up to 62.
-recurrent rectal bleeding
-recent admission with rectal bleeding 12/08-12/10
-extensive diverticulosis per prior CT
-elevated troponin
-chest pain/shortness of breath -- plan for eventual cath per cardiology possibly at [facility]
-mild anemia
-CAD prior CABG/stents
other med problems:
-ESRD on HD
-HFpEF
-/MR
-hx peritonitis
-? early prostate CA
-thrombocytosis
-colon polyps
-CHF
-HTN
-hypercholesterolemia
PLAN:
Etiology of bleeding with concern for diverticular bleed as noted 10 days ago, hemorrhoidal as reported on colonoscopy and red blood in ER rectal vs SB vs upper gi bleed as now some rise in BUN
s/p colonoscopy completed 12/10 as noted
will review with Dr. Whelan for eventual EGD if neg OP SB capsule
change to NPO for now til timing for EGD reviewed with Dr. Whelan
trend hbg currently 9.5 today
follow stool pattern pt reports some blood at 4 am
transfuse <7
if increased bleeding consider CTA if able per renal vs nuclear bleeding scan
pt currently off Plavix since prior to last admission 12/06
discussed with cardiology--PACKER SAUSAGE AND WIENER-- with chest pain/shortness of breath would ideally need GI eval prior to cath in case further stenting - resuming Plavix needed
-
-
Thank you for consultation and allowing me to participate in the patient's care. Please call the healthcare administration internship GI physician during the after hours with any questions or concerns.
--- NOTE | 2023-12-19 07:29 | CON.CAR ---
Addendum entered and electronically signed by Juan Malave MD 12/19/23 11:22:
I saw and examined the patient.
The JUTE BAG CUTTING MACHINE OPERATOR's note was reviewed and I agree with the note.
Comment:
If a source of bleeding is found and corrected it would make it safer to later progress to cath/possible PCI. Recall last cath 02/2023 led to continued medical therapy. He has chronic stable CAD and we do not see ACS. He is safe to progress to any
needed EGD/Colonoscopy/hemorrhoidal intervention. He should stay on ASA (if OK from GI perspective) and continue to stay off of Plavix. He has SL NTG to use at home. He should followup with his usual child welfare manager.
We will sign off. Please call with questions.
Original Note:
Consultation
Consultation Request
Date/Time Consultation Requested: 12/18/23 7p
Date/Time Consultation Performed: 12/19/23 7a
Requesting Provider: Dr. Cole
Performing Provider: JAYLEEN Best for Dr. Mlaave
Reason for Consultation: CAD with recurrent GIB
Medical History
-
Chief Complaint: melena/rectal bleeding
History of Present Illness:
Mr. Bower is a 73-year-old male (known to Dr. Mendoza, his primary child welfare manager), with CAD (prior CABG with multiple PCI recent 07/2022), chronic HFpEF, LINQ, hypertension, dyslipidemia, ESRD on HD, GI bleed (followed by Dr. Spaulding at 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 He was admitted at 12/08 - 12/12/23 with GIB, colonoscopy 12/11/2023 that did not show
an active bleed and localized area of hemorrhagic erythema in the left colon which was likely the source. He was d/c home on ASA 81mg only. He states seeing his GI doctor this week, Dr. Spaulding. Also saw child welfare manager at [facility] Dr. Cash 2 days ago
for chronic stable angina, he notes SOB and chest pressure with exertion that has been occurring for 2-[address] Cash recommended a right and left heart catheterization, but timing is to be determined. Currently at rest he denies any
cardiac symptoms. We are consulted for CAD with recurrent GIB.
Past Medical History
Past Medical History: Other (as above)
Past Surgical History: Other (as above)
Social History
Tobacco: Non-Smoker
Alcohol: None
Living: With Family
Employment: Retired
Family History
Family History: Reviewed & Not Pertinent
Allergies / Home Medications
Allergy/AdvReac Type Severity Reaction Status Date / Time
No Known Allergies Allergy Verified 12/18/23 12:47
�Medication �Instructions �Recorded �Confirmed �Type
allopurinol 100 mg tablet 100 mg PO HS Gout 08/26/22 12/18/23 History
atorvastatin 40 mg tablet 40 mg PO HS High cholesterol 08/26/22 12/18/23 History
metoprolol tartrate 50 mg tablet 50 mg PO BID Heart 08/26/22 12/18/23 History
disease/condition
nitroglycerin 0.4 mg sublingual 0.4 mg sublingual [id number] PRN 08/26/22 12/18/23 Rx
tablet chest pain #25 tabs
sevelamer HCl 800 mg tablet 800 mg PO MEALS Kidney Disease 08/31/22 12/18/23 History
aspirin 81 mg capsule 81 mg PO DAILY Heart 03/11/23 12/18/23 History
Disease/Condition
calcitriol 0.25 mcg capsule 1 mcg PO MOWEFR Kidney Disease 12/09/23 12/18/23 History
cholecalciferol (vitamin D3) 25 25 mcg PO DAILY Supplement 12/09/23 12/18/23 History
mcg (1,000 unit) tablet (Vitamin
D3)
cyanocobalamin (vitamin B-12) 100 100 mcg PO DAILY Supplement 12/09/23 12/18/23 History
mcg tablet (Vitamin B-12)
furosemide 40 mg tablet 40 mg PO BID@0800,1600 Fluid 12/09/23 12/18/23 History
Retention/Swelling
icosapent ethyl 1 gram capsule 1 g PO DAILY High Cholesterol 12/09/23 12/18/23 History
isosorbide mononitrate 60 mg 60 mg PO BID Heart 12/09/23 12/18/23 History
tablet,extended release 24 hr Disease/Condition
pantoprazole 40 mg tablet,delayed 40 mg PO DAILY #30 tabs 12/12/23 12/18/23 Rx
release (Protonix)
Review of Systems
-
History Source: Patient
All other systems: Negative unless noted
Physical Exam
Vital Signs
Temp Pulse Resp BP Pulse Ox
98.5 F 71 16 106/63 96
12/19/23 03:44 12/19/23 03:44 12/19/23 03:44 12/19/23 03:44 12/19/23 03:44
Lab Results
Troponin I 0.934 ng/ml H* 12/19/23 01:52
Physical Exam
General: Well Developed, Well Nourished and No Apparent Distress
HEENT: Normocephalic, Anicteric and Moist Mucous Membranes
Respiratory: Clear and Non Labored Respirations
Cardiac: S1/S2, Regular Rhythm and Murmur (2/6 LOTUS)
Impression / Plan
-
Acute non-ischemic myocardial injury - in the setting of acute GIB, anemia and ESRD creatinine 7.9.
- denies CP at rest.
- EKG unchanged, no acute ischemia.
- troponin 0.978, 0.934.
- admits to exertional SOB and chest pressure for 2-3 months.
GIB - recurrent.
- GI consulted, colonoscopy 12/11/23.
- anemia noted.
CAD - prior CABG and LAD PCI 07/2022.
- last cardiac cath 02/[address] Brice, noncritical restenosis in the LAD distal to the TRACEY graft touchdown site with multiple layers of stent, no further stenting recommended.
- Plavix stopped at last admission 12/09/23, only on ASA 81mg daily.
- recommend continue ASA 81mg daily.
- seen by Dr. Cash this week for exertional angina, he recommended right and left heart cath with timing TBD.
Mitral regurgitation - mild to moderate.
- slight tethering of the subvalvular chordae.
- continue medical therapy.
HFpEF - chronic.
- volume status managed with hemodialysis.
Aortic stenosis - mild, mean gradient 11 mmHg.
- stable.
ESRD - on HD.
- missed HD yesterday due to hypotension.
- nephrology following and HD this am.
Data Reviewed
-
EKG: Tracing Personally Visualized and interpreted (SR with PVCs )
Labs: Labs Reviewed by me
Old Records: Reviewed
[2023-12-19] MEDS: VITAMIN D3 (cholecalciferol) PO (08:14)
[2023-12-19] MEDS: RENVELA PO ×2 (08:14→12:29)
[2023-12-19] MEDS: MANNITOL 12.5 GRAMS IV ×2 (08:20→09:43)
[2023-12-19] MEDS: FLEXBUMIN 25% FOR HEMODIALYSIS 12.5 GRAMS IV ×2 (08:25→09:43)
[2023-12-19 08:28] LABS: % Basophils 0.3 % (0-2); % Eosinophils 1.6 % (0-6); % Immature Granulocytes 0.8 % (0-0.5); % Lymphocytes 20.6 % (20.5-51.1); % Monocytes 8.7 % (1.7-9.3); Absolute Eosinophils 0.1 10^3/uL (0-0.7); Absolute Immature Granulocytes 0.1 10^3/uL (0-0.05); Absolute Lymphocytes 1.3 10^3/uL (1.2-3.4); Absolute Monocytes 0.5 10^3/uL (0.1-0.6); Absolute Neutrophils 4.2 10^3/uL (1.4-6.5); Hemoglobin 8.2 g/dL (13.0-18.0); Mean Corp Hgb Conc. 32.8 g/dL (33.0-37.0); Mean Corpuscular Hgb 32.5 pg (27.0-31.0); Mean Corpuscular Volume 99.2 fL (80.0-94.0); Mean Platelet Volume 11.9 fL (7.4-10.4); Nucleated Red Blood Cells % 0 % (-); Platelet Count 120 10^3/uL (130-400); Red Blood Cell Count 2.52 10^6/uL (4.70-6.10); Red Cell Dist. Width 16.1 % (11.5-14.5); White Blood Cell Count 6.2 10^3/uL (4.8-10.8)
[2023-12-19] MEDS: ProAmatine 5 MG PO (08:45)
[2023-12-19] MEDS: VITAMIN B-12 PO (09:04)
[2023-12-19] MEDS: IMDUR (EXTENDED RELEASE) PO (09:04)
[2023-12-19 09:08] LABS: ALT (SGPT) 19 U/L (0-50); AST (SGOT) 16 U/L (17-59); Albumin 3.4 g/dl (3.5-5.0); Alkaline Phosphatase 115 U/L (38-126); Blood Urea Nitrogen 67 mg/dl (9-20); Calcium 9.4 mg/dl (8.4-10.2); Carbon Dioxide 20 mmol/L (22-30); Chloride 103 mmol/L (98-107); Estimated Creatinine Clearance 7 ml/min; Glucose 93 mg/dl (70-99); Potassium 5.4 mmol/L (3.5-5.1); Sodium 138 mmol/L (135-145); Total Bilirubin 0.4 mg/dl (0.2-1.3); Total Protein 5.5 g/dl (6.3-8.2); eGFR 5.85
[2023-12-19] MEDS: RETACRIT 10000 UNITS IV (09:45)
[2023-12-19 10:51] LABS: Iron 62 ug/dl (49-181); Percent Saturation 30 % (20-50); Total Iron Binding Capacity 201 ug/dl (261-462)
--- NOTE | 2023-12-19 10:59 | W.PN.NEPH.HD ---
Assessment
-
Seen on HD. no new complaints. VSS, access ok. BP low, given midodrine today
Iron levels ok
transfuse prn
Progress Note - Hemodialysis
-
Date of Service: December 19, 2023
Duration: 30 minutes and 3 hours
Potassium Bath: 2
Calcium Bath: 2.5
Opti-Dialyzer: 160
Ultrafiltration: Other (2kg)
Blood Flow: 400
Dialysate Flow: 600
Heparin: no
EPO: 25529 units
[2023-12-19] MEDS: IMDUR (EXTENDED RELEASE) 60 MG PO ×2 (12:23→19:21)
[2023-12-19] MEDS: MIRALAX PO (12:23)
[2023-12-19] MEDS: ANUSOL HC RECTAL (12:23)
--- NOTE | 2023-12-19 12:44 | PTCARENOTE ---
pt c/o chest pain post HD. 0800 dose of imdur given at 1223. pt asking to speak with doctor. Pt refusing mirlax and anusol suppository. Doctor Do notified.
--- NOTE | 2023-12-19 13:17 | PTCARENOTE ---
Spoke with patients and daughter (via phone). Daughter Kiersten is asking to be updated from the doctors and would like to speak with them. Daughter is also requesting cariology to speak with patients current search engine optimization manager Dr. Quintero from [place]
about updates. Doctor Douglas notified via tiger text [phone].
[2023-12-19] MEDS: MIRALAX 17 GRAMS PO (13:22)
[2023-12-19] MEDS: ANUSOL HC 25 MG RECTAL ×2 (13:22→19:26)
--- NOTE | 2023-12-19 13:28 | W.PN.HOSP.TC ---
Today's Communication/Plan
-
Morning labs/CBC/BMP/Mag
EKGs this afternoon were stable without concern for ACS -- cardiology also looked at EKGs and mentioned they were stable
Spoke with patient's family -- see below
Appreciate Nephrology, GI, and cardiology
Assessment / Plan
Assessment / Plan
Physical Exam
General: Not in acute distress
HEENT: Normocephalic, Moist mucous membranes
Respiratory: CTAB
Cardiac: S1/S2 and Regular Rhythm
GI: Soft, Non Tender, Non Distended, Normal Bowel Sounds
Musculoskeletal: No Cyanosis and No Edema
Skin: Warm, Dry
Neuro: AAO x 3, Nonfocal/grossly intact
Psych: Calm
Assessment/Plan
#Dark red blood per rectum -- suspected hemorrhoidal, less likely diverticular
#Hemorrhoids
#Moderately erythematous and hemorrhagic mucosa in the sigmoid colon on recent colonoscopy
-Hgb 9.5 -->dropped to 8.2. Iron levels okay as of December 19, 2023.
-Continue to monitor Hgb and transfuse to maintain Hgb>8 given his significant history of heart disease
-Patient signed at the time of admission on December 18, 2023, consent for blood transfusion if needed
-Consulted GI, recommendations appreciated
-As per GI, consider EGD/flex sigm with possible banding on December 22, 2023 if bleeding or anemia persists
-Anusol supp MI BID and Miralax daily
-Continue Aspirin
-Hold Plavix
#Chronic anemia secondary to renal disease
#Chronic thrombocytopenia
-Continue to monitor CBC
#Hypotension - resolved as of 12/19/23
-Patient's family concerned that lower blood pressures is new for the patient -- could be from anemia, blood loss, CHF, etc.
-Spoke with Dr. Duran today and we agreed to hold furosemide 40 mg twice daily for now -- consider resuming tomorrow
-Continue Imdur 60 mg twice daily
-Continue Metoprolol Tartrate 50 mg twice daily with parameters
#ESRD on dialysis Thursday
-Patient follows with [facility] nephro [phone]
-Consulted Nephrology, recommendations appreciated
-Patient did not have dialysis on 12/18/2023 due to hypotension
-Continue dialysis as per nephrology: dialysis took place on December 19, 2023 with Midodrine given
-Continue Calcitrol, Sevelamer 1600 mg with meals
-Follow BMP
#Chronic HFpEF
#CAD - prior CABG and LAD PCI 07/2022.
#Cardiac stent July 2022
#History of NSTEMI
#Linq device
-Follows with employee relations director Dr. Mendoza at [facility]
-Also follows with Dr. Cash from [facility]
-Last cardiac cath 02/[address] Brice, noncritical restenosis in the LAD distal to the TRACEY graft touchdown site with multiple layers of stent, no further stenting recommended at that time
-Patient was seen by Dr. Cash this week for exertional angina, he recommended right and left heart cath with timing TBD
-Continue atorvastatin 40 mg at bedtime
-Resume Imdur 60 mg twice daily with hold parameters
-Patient no longer taking Plavix due to recent diverticular bleed (Plavix stopped recently only on ASA 81mg daily)
-Continue Aspirin 81 mg daily
-Consulted cardiology, recommendations appreciated
-Per cardiology, if a source of bleeding is found and corrected it would make it safer to later progress to cath/possible PCI.
-Cleared by cardiology to progress to any needed EGD/Colonoscopy/hemorrhoidal intervention.
#Mitral regurgitation - mild to moderate.
#Aortic stenosis - mild, mean gradient 11 mmHg.
#Recent Kidney Stone Diagnosis?
-Per patient's at the time of admission, patient had recent CT abdomen December 02, 2023 to evaluate kidneys which showed a stone she is unsure what side
#Hyperlipidemia
-Continue Atorvastatin
#History of visual loss left eye due to vitreous hemorrhage March 2023
-Vision loss resolved
#Gout
-Continue allopurinol
#Enlarged Prostate
DVT prophylaxis: SCDs only due to bleeding
Full code
Contact Information and Communication with Patient's Family
communications department chairperson: Daughter Kiersten [phone]. The family also requested that his employee relations director Dr. Cash from [facility] be updated and talk about medication - his number was noted to be [phone].
On December 19, 2023: I extensively spoke with patient's daughter Kiersten, and patient's Karely over the phone. They had many questions and concerns: they requested that patient's source of anemia be treated quickly, patient be assessed for fluid
overload and they wanted employee relations director, senior system operator and technology engineer here to contact them to answer further questions. They wanted patient's EGD and flexible sigmoidoscopy studies to be done tomorrow. I explained that anemia in patient's case
can be due to more than 1 factor, including patient's end stage renal disease as well as a suspected gastrointestinal source of bleeding. Iron levels were noted to be okay and this was explained to them. I also tried calling patient's employee relations director
Dr. Cash at [phone], an answering service answered the phone and referred me to the on-call employee relations director Dr. Alban Charles who was able to pull up patient's records (including notes from Dr. Cash), while I was on the phone with him;
Dr. Charles explained that Dr. Cash's notes suggested that patient was becoming more fluid overloaded and that Dr. Cash would speak to nephrology about removing more fluid during his dialysis sessions; it was noted that on a previous cath
there was no intervening target for PCI and that patient had significantly elevated filling pressures; plan by Dr. Cash was to repeat a right and left heart catheterization, restart Metoprolol and hold Amlodipine. Dr. Charles mentioned that he
will email Dr. Cash about our conversation and about the patient's current status.
Total time spent today on reviewing patient's chart, seeing and examining the patient, reviewing urban design consultant notes and plans, speaking with patient's family over the phone, and documentation was 100 minutes.
Anticipated Discharge: > 48 hours
Subjective/Interval History
-
Date of Service: December 19, 2023
Patient was seen and examined. He denied any chest pain or any other symptoms or complaints at the time he was seen.
Objective Data
-
Labs:
Laboratory Results
12/19/23
07:49
WBC 6.2
Hgb 8.2 L
Hct 25.0 L
Plt Count 120 L
Sodium 138
Potassium 5.4 H
Chloride 103
Carbon Dioxide 20 L
BUN 67 H
Creatinine 8.8 H*
Glucose 93
Calcium 9.4
Total Bilirubin 0.4
AST 16 L
ALT 19
Alkaline Phosphatase 115
Vital Signs:
Vital Signs
Temp Pulse Resp BP Pulse Ox
97.7 F 92 16 116/67 95
12/19/23 10:51 12/19/23 10:51 12/19/23 10:51 12/19/23 10:51 12/19/23 10:51
I&O
12/18/23 12/19/23 12/20/23
06:59 06:59 06:59
Intake Total 480 / 480
Balance 480 / 480
[2023-12-19 15:22] LABS: Troponin I 0.873 ng/ml
--- NOTE | 2023-12-19 15:38 | PTCARENOTE ---
STAT EKG performed results forwarded to Dr. Cole
[2023-12-19] MEDS: ASPIR LOW (ENTERIC COATED) 81 MG PO (16:24)
[2023-12-19 17:08] LABS: % Basophils 0.3 % (0-2); % Immature Granulocytes 0.6 % (0-0.5); % Lymphocytes 10.9 % (20.5-51.1); % Monocytes 8.2 % (1.7-9.3); Absolute Eosinophils 0.1 10^3/uL (0-0.7); Absolute Lymphocytes 0.7 10^3/uL (1.2-3.4); Absolute Monocytes 0.6 10^3/uL (0.1-0.6); Absolute Neutrophils 5.3 10^3/uL (1.4-6.5); Hematocrit 25.3 % (39.0-52.0); Hemoglobin 8.2 g/dL (13.0-18.0); Mean Corp Hgb Conc. 32.4 g/dL (33.0-37.0); Mean Corpuscular Hgb 32.3 pg (27.0-31.0); Mean Corpuscular Volume 99.6 fL (80.0-94.0); Mean Platelet Volume 11.9 fL (7.4-10.4); Nucleated Red Blood Cells % 0 % (-); Platelet Count 129 10^3/uL (130-400); Red Blood Cell Count 2.54 10^6/uL (4.70-6.10); Red Cell Dist. Width 15.9 % (11.5-14.5); White Blood Cell Count 6.7 10^3/uL (4.8-10.8)
[2023-12-19 17:19] LABS: ALT (SGPT) 18 U/L (0-50); AST (SGOT) 18 U/L (17-59); Albumin 3.8 g/dl (3.5-5.0); Alkaline Phosphatase 113 U/L (38-126); Blood Urea Nitrogen 27 mg/dl (9-20); Calcium 9.5 mg/dl (8.4-10.2); Carbon Dioxide 28 mmol/L (22-30); Chloride 96 mmol/L (98-107); Estimated Creatinine Clearance 13 ml/min; Glucose 128 mg/dl (70-99); Sodium 135 mmol/L (135-145); Total Bilirubin 0.7 mg/dl (0.2-1.3); Total Protein 5.8 g/dl (6.3-8.2); eGFR 13.43
[2023-12-19 17:32] LABS: Troponin I 0.795 ng/ml
[2023-12-19] MEDS: RENVELA 800 MG PO (18:13)
[2023-12-19] MEDS: ZYLOPRIM 100 MG PO (21:46)
[2023-12-19] MEDS: LIPITOR 40 MG PO (21:46)
--- NOTE | 2023-12-19 23:50 | PTCARENOTE ---
Patient refused his Troponin lab draw. He agreed to the next one at around 0500. Advised JAYLEEN Cruz.
[2023-12-20 03:06] VITALS: BP 98/55
[2023-12-20 05:49] VITALS: BMI 27.0
[2023-12-20 07:05] LABS: % Basophils 0.2 % (0-2); % Eosinophils 1.7 % (0-6); % Immature Granulocytes 0.4 % (0-0.5); % Lymphocytes 22.8 % (20.5-51.1); % Monocytes 10.4 % (1.7-9.3); % Neutrophils 64.5 % (42.2-75.2); Absolute Eosinophils 0.1 10^3/uL (0-0.7); Absolute Lymphocytes 1.1 10^3/uL (1.2-3.4); Absolute Monocytes 0.5 10^3/uL (0.1-0.6); Hematocrit 26.4 % (39.0-52.0); Hemoglobin 8.3 g/dL (13.0-18.0); Mean Corp Hgb Conc. 31.4 g/dL (33.0-37.0); Mean Corpuscular Volume 101.9 fL (80.0-94.0); Nucleated Red Blood Cells % 0 % (-); Platelet Count 113 10^3/uL (130-400); Red Blood Cell Count 2.59 10^6/uL (4.70-6.10); Red Cell Dist. Width 15.6 % (11.5-14.5); White Blood Cell Count 4.7 10^3/uL (4.8-10.8)
[2023-12-20 07:27] LABS: Blood Urea Nitrogen 42 mg/dl (9-20); Calcium 9.3 mg/dl (8.4-10.2); Carbon Dioxide 28 mmol/L (22-30); Chloride 96 mmol/L (98-107); Estimated Creatinine Clearance 10 ml/min; Glucose 94 mg/dl (70-99); Magnesium 2.1 mg/dl (1.6-2.3); Potassium 4.3 mmol/L (3.5-5.1); Sodium 135 mmol/L (135-145); eGFR 9.26
[2023-12-20 07:47] VITALS: BP 99/49
--- NOTE | 2023-12-20 08:53 | W.PN.CD ---
Addendum entered and electronically signed by Juan Malave MD 12/20/23 10:32:
-
Spoke with Dr. Roberts. I agree with we should decrease Imdur and BB to all higher BP to support dialysis.
-
-
Addendum entered and electronically signed by Juan Malave MD 12/20/23 09:28:
-
-
Spoke with Dr. Duran of nephrology. We agreed to start Midodrine in hopes that BP will support getting to a lower dry weight.
-
-
Original Note:
Today's Communication / Plan
-
More than 1 hour with patient and family
No acute indication for cath. Cath would likely show relative stable CAD and severe heart failure
- Of course if ACS, NSTEMI, or STEMI develop we would progress to urgent cath
Suggest nephrology see if a lower dry weight can be achieved
Agree with trending troponin
Impression / Plan
-
NI. I suspect he has chronic severe HFpEF
- Main symptom
- CXR read as mild heart failure
- Right heart cath 03/13/2023 confirmed severe heart failure at weight of about 74.6 kg:
AO: 167/80
LV: 167/24
PCWP: 32
PA: 64/34
RV: 64/15
RA: 14
Oximetry: Ao 92%, PA 67%, cardiac output 4.7, cardiac index 2.6
- Last echo 06/2023: Normal LV and RV size and function. Stage II diastolic dysfunction. Mild biatrial enlargement. Mild aortic stenosis, mean gradient across the valve is 11 mmHg
- Last cath 03/13/2023: Severe absent[place] CAD similar to the prior study with patent JUAN-LAD, SVG-diagonal, and LRA-RPDA bypass grafts. There is noncritical restenosis in the LAD distal to the TRACEY graft touchdown site. This patient has had multiple
layers of stent placed in the LAD distal to the TRACEY graft touchdown site and would not recommend further stenting at this time
Acute non-ischemic myocardial injury - in the setting of acute GIB, anemia and ESRD creatinine 7.9.
- denies CP at rest.
- EKG stable
- troponin are hovering near 1, additional troponin ordered
- admits to exertional SOB and chest pressure for 2-3 months.
GIB - recurrent.
- GI consulted, colonoscopy 12/11/23.
- anemia noted.
CAD - prior CABG and LAD PCI 07/2022.
- last cardiac cath 02/[address] Brice, noncritical restenosis in the LAD distal to the TRACEY graft touchdown site with multiple layers of stent, no further stenting recommended.
- Plavix stopped at last admission 12/09/23, only on ASA 81mg daily.
- recommend continue ASA 81mg daily.
- seen by Dr. Cash this week for exertional angina, he recommended right and left heart cath with timing TBD.
Mitral regurgitation - mild to moderate.
- slight tethering of the subvalvular chordae.
- continue medical therapy.
Aortic stenosis - mild, mean gradient 11 mmHg.
- stable.
ESRD - on HD.
- missed HD yesterday due to hypotension.
- nephrology following and HD this am.
Physical Exam
Vital Signs/Labs
Vital Signs
Temp Pulse Resp BP Pulse Ox
98.9 F 68 16 99/49 98
12/20/23 07:47 12/20/23 07:47 12/20/23 07:47 12/20/23 07:47 12/20/23 07:47
12/19/23 12/20/23 12/21/23
06:59 06:59 06:59
Actual Weight 75.206 kg 73.709 kg
12/20/23 06:34
12/20/23 06:34
Magnesium 2.1 mg/dl (1.6-2.3) 12/20/23 06:34
LAB Results
12/18/23 12/19/23 12/19/23
19:41 01:52 07:49
Troponin I 0.978 H* 0.934 H* 0.970 H*
12/19/23 12/19/23 12/19/23
14:11 16:43 23:35
Troponin I 0.873 H* 0.795 H* Cancelled
12/20/23 12/20/23 12/20/23
01:00 04:43 06:34
Troponin I Cancelled Cancelled 1.060 H*
Physical Exam
Constitutional: No acute distress
EENT: Anicteric
Cardiovascular: Rhythm & rate is regular
Respiratory: Respiratory effort normal and Lungs clear to auscul.
GI: Distention absent and Non tender
Neuro/Psych: AO x 3
Data Reviewed
-
Date of Service: December 20, 2023
[2023-12-20] MEDS: ASPIR LOW (ENTERIC COATED) 81 MG PO (09:09)
[2023-12-20] MEDS: ANUSOL HC 25 MG RECTAL ×2 (09:09→21:27)
[2023-12-20] MEDS: IMDUR (EXTENDED RELEASE) 60 MG PO (09:10)
[2023-12-20] MEDS: VITAMIN D3 (cholecalciferol) 25 MCG PO (09:11)
[2023-12-20] MEDS: MIRALAX PO (09:11)
[2023-12-20] MEDS: VITAMIN B-12 100 MCG PO (09:12)
[2023-12-20] MEDS: RENVELA 800 MG PO ×3 (09:12→17:46)
--- NOTE | 2023-12-20 09:32 | CM ---
met with patient and his at bedside.patient lives with his in [facility] [place] [place] with 2 pao,his bed and bath is on the seond level,he amb i and is i with his adl.no dme.his pcp is dr peter castaneda and he uses [facility] in [facility].he goes to
[facility] [phone]
patient with a hx of cad sp cabg and cardiac stent,chf is adm with hypotension and rectal bleeding.his hgb in 8.3,dialysis yesterday.holding lasix.plan is for patient to dc home with no needs when stable.
--- NOTE | 2023-12-20 10:07 | W.PN.HOSP.TC ---
Addendum entered and electronically signed by Ratna Roberts MD 12/20/23 10:36:
lowered IMDUR to 30 mg BID and Metoprolol 25 mg BID
Original Note:
Today's Communication/Plan
-
lower Imdur to 30 mg BID
consider lowering metoprolol dose as well
Assessment / Plan
Assessment / Plan
pt is a 73 year old male
SOB--likely still with exacerbation of diastolic CHF as spoke with Dr. Malave (cath from 03/18 shows elevated wedge with weight at ~74kg, CXR from 12/17 with CHF, weight here 73.7)--agree that needs lower dry weight BUT BP limits pushing that on
HD--also agree with starting midodrine and accepting a higher resting/supine BP in order to get to lower dry weight if possible--also agree, may need to live with some SOB and some heart failure symptoms if dry weight cannot be safely maintained
Dark red blood per rectum with anemia of chronic disease--suspected hemorrhoidal--iron studies confirm anemia of chronic disease--would not give any supplemental iron products---Patient signed at the time of admission on December 18, 2023, consent for
blood transfusion if needed--HGB stable low 8s--apprec GI--consider EGD/flex sigm with possible banding on December 22, 2023---Anusol supp [place] BID and Miralax daily--Continue Aspirin--Holding Plavix
Chronic anemia secondary to renal disease/Chronic thrombocytopenia
Hypotension--borderline--agree with starting midodrine--needs meds for goal directed CHF treatment--lasix on hold, imdur at twice daily and would consider dropping to daily or reducing twice daily dose, also consider dropping metoprolol tartrate to
25 mg twice daily or change to toprol XL daily
ESRD on dialysis Thursday---Patient follows with [facility]ro [phone]--apprec renal--Continue Calcitrol, Sevelamer 1600 mg with meals
Chronic HFpEF/CAD - prior CABG and LAD PCI 07/2022/Cardiac stent July 2022/History of NSTEMI/Linq device---Patient was seen by Dr. Cash ([place]) this week for exertional angina, he recommended right and left heart cath with timing TBD--Also
Follows with garbage man Dr. Mendoza at [facility]--Last cardiac cath 02/[address] Brice, noncritical restenosis in the LAD distal to the TRACEY graft touchdown site with multiple layers of stent, no further stenting recommended at that
time--cont atorvastatin, asa--consider adjusting IMDUR and metoprolol
Mitral regurgitation - mild to moderate/Aortic stenosis - mild, mean gradient 11 mmHg.
Recent Kidney Stone Diagnosis?--Per patient's at the time of admission, patient had recent CT abdomen December 02, 2023 to evaluate kidneys which showed a stone she is unsure what side
Hyperlipidemia--Continue Atorvastatin
History of visual loss left eye due to vitreous hemorrhage March 2023--Vision loss resolved
Gout--Continue allopurinol
Enlarged Prostate
DVT prophylaxis: SCDs only due to bleeding
Full code
Contact Information and Communication with Patient's Family
track service person: Daughter Kiersten [phone]. The family also requested that his garbage man Dr. Cash from [place] be updated and talk about medication - his number was noted to be [phone].
On December 19, 2023: Dr. Cole extensively spoke with patient's daughter Kiersten, and patient's Karely over the phone. They had many questions and concerns: they requested that patient's source of anemia be treated quickly, patient be assessed for
fluid overload and they wanted garbage man, mc kay machine operator and television newscast director here to contact them to answer further questions. They wanted patient's EGD and flexible sigmoidoscopy studies to be done tomorrow. He explained that anemia in
patient's case can be due to more than 1 factor, including patient's end stage renal disease as well as a suspected gastrointestinal source of bleeding. Iron levels were noted to be okay and this was explained to them. He also tried calling
patient's garbage man Dr. Cash at [phone], an answering service answered the phone and referred me to the on-call garbage man Dr. Alban Charles who was able to pull up patient's records (including notes from Dr. Cash), while
Douglas was on the phone with him; Dr. Charles explained that Dr. Cash's notes suggested that patient was becoming more fluid overloaded and that Dr. Cash would speak to nephrology about removing more fluid during his dialysis sessions;
it was noted that on a previous cath there was no intervening target for PCI and that patient had significantly elevated filling pressures; plan by Dr. Cash was to repeat a right and left heart catheterization, restart Metoprolol and hold
Amlodipine. Dr. Charles mentioned that he will email Dr. Cash about our conversation and about the patient's current status.
Anticipated Discharge: > 48 hours
Subjective/Interval History
-
Date of Service: December 20, 2023
assumed care of pt from Dr. Cole for today
spoke at length with Dr. Malave, cards, re: pt SOB c/o
pt c/o SOB, no chest pain
Objective Data
-
Labs:
Laboratory Results
12/20/23
06:34
WBC 4.7 L
Hgb 8.3 L
Hct 26.4 L
Plt Count 113 L
Sodium 135
Potassium 4.3
Chloride 96 L
Carbon Dioxide 28
BUN 42 H
Creatinine 6.0 H*
Glucose 94
Calcium 9.3
Vital Signs:
max temp for 24 hours
12/20/23
07:47
Temp 98.9 F
Vital Signs
Temp Pulse Resp BP Pulse Ox
98.9 F 68 16 99/49 98
12/20/23 07:47 12/20/23 09:10 12/20/23 07:47 12/20/23 09:10 12/20/23 07:47
I&O
12/19/23 12/20/23 12/21/23
06:59 06:59 06:59
Intake Total 480 / 480 480 / 480
Balance 480 / 480 480 / 480
Review of Systems
-
All other systems: Reviewed and negative
Respiratory: Reports Trouble Breathing
Physical Exam
-
General: Well Developed, Well Nourished and No Apparent Distress
HEENT: Normocephalic and Atraumatic
Respiratory: Clear to Auscultation; Negative Wheezes or Rhonchi
Cardiac: Regular Rhythm and S1/S2; Negative Murmur
GI: Soft, Nontender, Nondistended and Normal Bowel Sounds
Musculoskeletal: No Clubbing, No Cyanosis and No Edema
Skin: Warm and Dry
Neuro: Awake and Alert
Psych: Calm
--- NOTE | 2023-12-20 10:54 | W.PN.GI.CBS2 ---
Today's Communication / Plan
-
C/w regular diet
C/w anusol and miralax
Plan for EGD and flex sigm Thursday
and daughter conferenced in phone call and all questions answered.
Assessment / Plan
-
Víctor is a 73yo M with h/o CAD s/p CABG 2022 on chronic Plavix, CHF, mild and ESRD on HD who presents b/c when he went for hemodialysis on Thursday it could not be done due to hypotension and hematochezia. He was just admitted for the same at
12/08-12/10 where he had a colonoscopy done that showed medium sized hemorrhoids, tics and sigmoid erythema. Exam was limited due to patient non tolerance of sedation. He tells me he has h/o straining sitting over toilet with newspaper. He also had
straining and at times BRBPR on toilet paper or in the toilet bowel. Blood is not mixed into the stool. At times blood also found in his underwear. Vitals reviewed and no normotensive VSS. NTTP, NABS. on HD unable to do rectal exam. Labs
reviewed Hbg 8.2
Impression
- BRBPR
Suspect hemorrhoidal. Less likely diverticular
- Chronic anemia
Iron panel suggests anemia of chronic disease
- ESRD on HD
- CAD s/p CABG 2022 on plavix (last 12/06)
- CHF
- Mild
- Gout
Recommendations
- Serial H/H
- Anusol supp GA BID
- C/w Miralax daily
- Adv to regular diet yesterday and tolerating
- Monitor stool output, none thus far
- Plan for EGD/flex sigm with possible banding on Thursday
Family and hospitalist updated. Will follow with you
Subjective
Subjective
Date of Service: December 20, 2023
Ate 100% of breakfast. No abd pain, nausea/vomiting or reflux. No BM since admission
Objective
Data Reviewed
Laboratory Data:
Laboratory Results
12/20/23 06:34
12/20/23 06:34
Laboratory Results
Phosphorus 6.0 mg/dl (2.5-4.5) H 12/18/23 15:45
Magnesium 2.1 mg/dl (1.6-2.3) 12/20/23 06:34
Total Bilirubin 0.7 mg/dl (0.2-1.3) 12/19/23 16:43
AST 18 U/L (17-59) 12/19/23 16:43
ALT 18 U/L (0-50) 12/19/23 16:43
Alkaline Phosphatase 113 U/L (38-126) 12/19/23 16:43
Vital Signs and I&O:
Vital Signs
Temp Pulse Resp BP Pulse Ox
98.9 F 68 16 99/49 98
12/20/23 07:47 12/20/23 09:10 12/20/23 07:47 12/20/23 09:10 12/20/23 07:47
I&O
12/19/23 12/20/23 12/21/23
06:59 06:59 06:59
Intake Total 480 / 480 480 / 480
Balance 480 / 480 480 / 480
Physical Exam
Physical Exam
GEN: No acute distress, conversant, pleasant
HEENT: anicteric, extraocular movements intact, clear oropharynx without exudates
GI: soft, obese milldy-distended, not tender to palpation, normal active bowel sounds, no hepatosplenomegaly
EXT: warm, well perfused, no edema bilaterally
NEURO: AAOx3, non-focal
--- NOTE | 2023-12-20 11:31 | W.PN.NEPH.PH ---
Today's Communication / Plan
-
HD tomorrow
Assessment/Plan
-
IMP:
Acute rectal bleeding
ESRD on dialysis Thursday [facility] [phone]
Linq device-mica paster Dr. Mendoza at [facility]
Acute on Chronic anemia secondary to renal disease
Chronic thrombocytopenia
HTN�benign
Hx chronic diastolic CHF
CAD/CABG x 5 vessel
Cardiac stent July 2022
2D echo 07/16/2023: EF 60 to 65%, hypokinesis basal anteroseptal/inferior septal wall, stage II diastolic dysfunction, mild biatrial enlargement, mild aortic stenosis
HLD
Hx visual loss left eye due to vitreous hemorrhage March 2023
Gout
Plan:
midodrine 5mg TID
may need to reduce BP meds
HD tomorrow, challenge EDW as allowed (previously unable to due to hypotension)
Transfuse as needed
follow hemoglobin
long discussion with and daughter. They request interdisciplinary approach, but have no OP physicians at [facility] and do not go to ER/hospital where his cardiologists are. They say he was planned to have cardiac catheterization and then possibly a
procedure to drain the fluid AROUND his heart as discussed by [facility] cardiology. They say that his CXR demonstrates fluid around the heart. They insist he is dehydrated because he is always thirsty and has low blood pressures. Dr Malave has reviewed
recent CXR showing pulmonary edema and last RHC 02/2023 with elevated PCWP. I reiterated that he appears to be volume overloaded and that UF has been limited by hypotension. He would be better suited going to [facility] where there has already been a
defined plan in place. He will remain on fluid restriction. Last echo 06/2023 shows no pericaridal effusion.
If necessary, a RHC to confirm volume overload could be done.
-
-
Date of Service: December 20, 2023
CC / HPI / ROS
-
Chief Complaint:
ESRD
History of Present Illness:
BP low but stable
Hgb stable 8.3
tolerated HD yesterday, required midodrine
Review of Systems:
no SOB
reports CP chronic
weakness
Labs
-
Labs:
WBC 4.7 10^3/uL (4.8-10.8) L 12/20/23 06:34
RBC 2.59 10^6/uL (4.70-6.10) L 12/20/23 06:34
Hgb 8.3 g/dL (13.0-18.0) L 12/20/23 06:34
Hct 26.4 % (39.0-52.0) L 12/20/23 06:34
Plt Count 113 10^3/uL (130-400) L 12/20/23 06:34
Sodium 135 mmol/L (135-145) 12/20/23 06:34
Potassium 4.3 mmol/L (3.5-5.1) 12/20/23 06:34
Chloride 96 mmol/L (98-107) L 12/20/23 06:34
Carbon Dioxide 28 mmol/L (22-30) 12/20/23 06:34
BUN 42 mg/dl (9-20) H 12/20/23 06:34
Creatinine 6.0 mg/dL (0.7-1.3) H* 12/20/23 06:34
eGFR 9.26 12/20/23 06:34
Glucose 94 mg/dl (70-99) 12/20/23 06:34
Calcium 9.3 mg/dl (8.4-10.2) 12/20/23 06:34
Phosphorus 6.0 mg/dl (2.5-4.5) H 12/18/23 15:45
Albumin 3.8 g/dl (3.5-5.0) 12/19/23 16:43
Physical Exam
-
Vital Signs:
Vital Signs
Temp Pulse Resp BP Pulse Ox
98.9 F 68 16 99/49 98
12/20/23 07:47 12/20/23 09:10 12/20/23 07:47 12/20/23 09:10 12/20/23 07:47
Cardiovascular:: Regular rate and rhythm
Respiratory:: Bilateral: Coarse
Lung Excursion:: Normal
Abdomen:: Nontender and Soft
Bowel Sounds:: Normal
Extremity Edema:: None: Bilateral:
[2023-12-20 12:14] VITALS: BP 96/53
[2023-12-20] MEDS: ProAmatine 5 MG PO ×2 (12:28→17:46)
[2023-12-20 13:40] LABS: Troponin I 0.913 ng/ml
[2023-12-20 15:00] VITALS: BP 127/70
[2023-12-20] MEDS: MIRALAX 17 GRAMS PO (16:02)
[2023-12-20 17:52] LABS: Troponin I 0.918 ng/ml
[2023-12-20 19:32] VITALS: BP 102/53
[2023-12-20] MEDS: IMDUR (EXTENDED RELEASE) 30 MG PO (21:27)
[2023-12-20] MEDS: ZYLOPRIM 100 MG PO (21:28)
[2023-12-20] MEDS: LIPITOR 40 MG PO (21:29)
[2023-12-20] MEDS: LOPRESSOR PO (21:30)
[2023-12-20 23:46] VITALS: BP 111/64
[2023-12-20 23:51] LABS: Troponin I 0.814 ng/ml
[2023-12-21] VITALS (7 sets, daily range): BP systolic 103–119; BP diastolic 59–67; PULSE 59; O2SAT 100; BMI 27.6
[2023-12-21] MEDS: PROTONIX 40 MG PO (01:38)
--- NOTE | 2023-12-21 02:56 | W.PN.UPDATE ---
Update Note
Progress Note Update
Patient very concerned about the decrease in dosing for his Imdur and his beta isaiah. Explained to him about the danger of missing HD sessions due to hypotension. Also explained he takes midodrine three times a day to help keep his bp elevated but
there are times when it is not effective. He c/o burning in his chest earlier which resolved on its own. Explained also there are many reasons besides cardiac which could cause chest discomfort and added a dose of Protonix po.
--- NOTE | 2023-12-21 03:25 | PTCARENOTE ---
Pt c/o 03/05 'burning' sensation to the center of his chest, voicing concerns over recent decrease in Imdur dosage. Serial troponins trending downward. Pt requesting to speak to COBOL APPLICATION DEVELOPER directly, COBOL APPLICATION DEVELOPER responded bedside, spoke with pt and one time dose
of Protonix ordered and given, see MAR.
[2023-12-21 08:04] LABS: Glucose - Point of Care 100 mg/dl (70-99)
[2023-12-21 08:20] LABS: % Basophils 0.2 % (0-2); % Eosinophils 2.1 % (0-6); % Immature Granulocytes 0.6 % (0-0.5); % Monocytes 10.8 % (1.7-9.3); % Neutrophils 66.3 % (42.2-75.2); Absolute Eosinophils 0.1 10^3/uL (0-0.7); Absolute Lymphocytes 1.1 10^3/uL (1.2-3.4); Absolute Monocytes 0.6 10^3/uL (0.1-0.6); Absolute Neutrophils 3.6 10^3/uL (1.4-6.5); Hematocrit 25.9 % (39.0-52.0); Hemoglobin 8.3 g/dL (13.0-18.0); Nucleated Red Blood Cells % 0 % (-); Platelet Count 113 10^3/uL (130-400); Red Blood Cell Count 2.59 10^6/uL (4.70-6.10); Red Cell Dist. Width 15.4 % (11.5-14.5); White Blood Cell Count 5.4 10^3/uL (4.8-10.8)
[2023-12-21] MEDS: MANNITOL 12.5 GRAMS IV ×2 (08:20→10:03)
[2023-12-21] MEDS: FLEXBUMIN 25% FOR HEMODIALYSIS 12.5 GRAMS IV ×2 (08:30→10:03)
[2023-12-21] MEDS: ASPIR LOW (ENTERIC COATED) 81 MG PO (08:30)
[2023-12-21] MEDS: ProAmatine 5 MG PO ×3 (08:31→17:13)
[2023-12-21] MEDS: VITAMIN D3 (cholecalciferol) 25 MCG PO (08:32)
[2023-12-21 08:52] LABS: Blood Urea Nitrogen 59 mg/dl (9-20); Carbon Dioxide 23 mmol/L (22-30); Chloride 99 mmol/L (98-107); Estimated Creatinine Clearance 7 ml/min; Glucose 89 mg/dl (70-99); Magnesium 2.1 mg/dl (1.6-2.3); Potassium 4.7 mmol/L (3.5-5.1); Sodium 137 mmol/L (135-145); eGFR 6.76
[2023-12-21] MEDS: RETACRIT 10000 UNITS IV (09:00)
--- NOTE | 2023-12-21 09:51 | W.PN.HOSP.TC ---
Today's Communication/Plan
-
for EGD and flex sigmoidoscopy tomorrow
Assessment / Plan
Assessment / Plan
pt is a 73 year old male
SOB- mostly exertional-suspect secondary to chronic severe heart failure with preserved EF. continue dialysis for fluid management.
Recurrent rectal bleeding---suspected hemorrhoidal--HGB stable low 8s--apprec GI--consider EGD/flex sigm with possible banding on December 22, 2023---Anusol supp IN BID and Miralax daily--Continue Aspirin--Holding Plavix
Chronic anemia secondary to renal disease
ESRD on dialysis Thursday---Patient follows with [facility] nephro [phone]--apprec renal--Continue Calcitrol, Sevelamer 1600 mg with meals. Continue with midodrine support with dialysis.
CAD - prior CABG and LAD PCI 07/2022/Cardiac stent July 2022/History of NSTEMI/Linq device---Patient was seen by Dr. Cash ([place]) this week for exertional angina, he recommended right and left heart cath with timing TBD--Also Follows with
mrp controller Dr. Mendoza at [facility]--Last cardiac cath 02/[address] Brice, noncritical restenosis in the LAD distal to the TRACEY graft touchdown site with multiple layers of stent, no further stenting recommended at that time--cont
atorvastatin, asa-continue with the decreased dose of IMDUR and metoprolol
-No anginal episodes during the hospital stay.
Mitral regurgitation - mild to moderate/Aortic stenosis - mild, mean gradient 11 mmHg.
Hyperlipidemia--Continue Atorvastatin
History of visual loss left eye due to vitreous hemorrhage March 2023--Vision loss resolved
Gout--Continue allopurinol
Enlarged Prostate
DVT prophylaxis: SCDs only due to bleeding
Full code
Contact Information and Communication with Patient's Family
optical effects layout person: Daughter Kiersten [phone]. The family also requested that his mrp controller Dr. Cash from [place] be updated and talk about medication - his number was noted to be [phone].
On December 19, 2023: Dr. Cole extensively spoke with patient's daughter Kiersten, and patient's Karely over the phone. They had many questions and concerns: they requested that patient's source of anemia be treated quickly, patient be assessed for
fluid overload and they wanted mrp controller, radiation protection engineer and hand violin maker here to contact them to answer further questions. They wanted patient's EGD and flexible sigmoidoscopy studies to be done tomorrow. He explained that anemia in
patient's case can be due to more than 1 factor, including patient's end stage renal disease as well as a suspected gastrointestinal source of bleeding. Iron levels were noted to be okay and this was explained to them. He also tried calling
patient's mrp controller Dr. Cash at [phone], an answering service answered the phone and referred me to the on-call mrp controller Dr. Alban Charles who was able to pull up patient's records (including notes from Dr. Cash), while "Tr"Douglas was on the phone with him; Dr. Charles explained that Dr. Cash's notes suggested that patient was becoming more fluid overloaded and that Dr. Cash would speak to nephrology about removing more fluid during his dialysis sessions;
it was noted that on a previous cath there was no intervening target for PCI and that patient had significantly elevated filling pressures; plan by Dr. Cash was to repeat a right and left heart catheterization, restart Metoprolol and hold
Amlodipine. Dr. Charles mentioned that he will email Dr. Cash about our conversation and about the patient's current status.
Anticipated Discharge: 24 - 48 hours
Subjective/Interval History
-
Date of Service: December 21, 2023
no further rectal bleeding
Objective Data
-
Labs:
Laboratory Results
12/21/23
07:24
WBC 5.4
Hgb 8.3 L
Hct 25.9 L
Plt Count 113 L
Sodium 137
Potassium 4.7
Chloride 99
Carbon Dioxide 23
BUN 59 H
Creatinine 7.8 H*
Glucose 89
Calcium 9.0
Vital Signs:
Vital Signs
Temp Pulse Resp BP Pulse Ox
97.9 F 81 16 116/61 100
12/21/23 07:35 12/21/23 08:31 12/21/23 07:35 12/21/23 08:31 12/21/23 07:35
I&O
12/20/23 12/21/23 12/22/23
06:59 06:59 06:59
Intake Total 480 / 480 360 / 360
Balance 480 / 480 360 / 360
Review of Systems
-
Respiratory: Reports Trouble Breathing ( exertional)
Cardiac: Denies Chest Pain
Abdomen/GI: Denies Abdominal Pain, Nausea, Vomiting or Bloody Stools
Neuro: Denies Dizzy
Physical Exam
-
General: No Apparent Distress
HEENT: Moist Mucous Membranes
Respiratory: Clear to Auscultation
Cardiac: Regular Rhythm and S1/S2
Data Reviewed
-
Labs: Labs Reviewed by me
--- NOTE | 2023-12-21 10:02 | W.PN.GI.CBS2 ---
Today's Communication / Plan
-
NPO at [facility]
EGD/flex tomorrow
Assessment / Plan
-
Víctor is a 73yo M with h/o CAD s/p CABG 2022 on chronic Plavix, CHF, mild and ESRD on HD who presents b/c when he went for hemodialysis on Thursday it could not be done due to hypotension and hematochezia. He was just admitted for the same at
12/08-12/10 where he had a colonoscopy done that showed medium sized hemorrhoids, tics and sigmoid erythema. Exam was limited due to patient non tolerance of sedation. He tells me he has h/o straining sitting over toilet with newspaper. He also had
straining and at times BRBPR on toilet paper or in the toilet bowel. Blood is not mixed into the stool. At times blood also found in his underwear.
Impression
- BRBPR
Suspect hemorrhoidal. Less likely diverticular
No transfusion on this admission
- Chronic anemia
Iron panel suggests anemia of chronic disease
- ESRD on HD
- CAD s/p CABG 2022 on plavix (last 12/06)
- CHF
- Mild
- Gout
Recommendations
- Serial H/H
- Anusol supp ND BID
- C/w Miralax daily
- C/w regular diet, NPO at [place] for EGD/flex tomorrow with possible banding.
- Monitor stool output, BM 12/19 was phong
Will follow with you
Subjective
Subjective
Date of Service: December 21, 2023
He passed brown BM yesterday. Denies abd pain, nausea/vomiting. Tolerating diet. Getting HD this AM without issues
Objective
Data Reviewed
Laboratory Data:
Laboratory Results
12/21/23 07:24
12/21/23 07:24
Laboratory Results
Phosphorus 6.0 mg/dl (2.5-4.5) H 12/18/23 15:45
Magnesium 2.1 mg/dl (1.6-2.3) 12/21/23 07:24
Total Bilirubin 0.7 mg/dl (0.2-1.3) 12/19/23 16:43
AST 18 U/L (17-59) 12/19/23 16:43
ALT 18 U/L (0-50) 12/19/23 16:43
Alkaline Phosphatase 113 U/L (38-126) 12/19/23 16:43
Vital Signs and I&O:
Vital Signs
Temp Pulse Resp BP Pulse Ox
97.9 F 81 16 116/61 100
12/21/23 07:35 12/21/23 08:31 12/21/23 07:35 12/21/23 08:31 12/21/23 07:35
I&O
12/20/23 12/21/23 12/22/23
06:59 06:59 06:59
Intake Total 480 / 480 360 / 360
Balance 480 / 480 360 / 360
Physical Exam
Physical Exam
GEN: No acute distress, conversant, pleasant
HEENT: anicteric, extraocular movements intact, clear oropharynx without exudates
GI: soft, non-distended, not tender to palpation, normal active bowel sounds, no hepatosplenomegaly
EXT: warm, well perfused, no edema bilaterally
NEURO: AAOx3, non-focal
--- NOTE | 2023-12-21 10:33 | W.PN.CD ---
Today's Communication / Plan
-
BP improved on decreased doses of meds
Feels OK
flex sig planned for tomorrow
Impression / Plan
-
NI. I suspect he has chronic severe HFpEF
- Main symptom
- CXR read as mild heart failure
- HD today trying for volume removal
- Right heart cath 03/13/2023 confirmed severe heart failure at weight of about 74.6 kg:
AO: 167/80
LV: 167/24
PCWP: 32
PA: 64/34
RV: 64/15
RA: 14
Oximetry: Ao 92%, PA 67%, cardiac output 4.7, cardiac index 2.6
- Last echo 06/2023: Normal LV and RV size and function. Stage II diastolic dysfunction. Mild biatrial enlargement. Mild aortic stenosis, mean gradient across the valve is 11 mmHg
- Last cath 03/13/2023: Severe [place] CAD similar to the prior study with patent JUAN-LAD, SVG-diagonal, and LRA-RPDA bypass grafts. There is noncritical restenosis in the LAD distal to the TRACEY graft touchdown site. This patient has had multiple
layers of stent placed in the LAD distal to the TRACEY graft touchdown site and would not recommend further stenting at this time
Acute non-ischemic myocardial injury - in the setting of acute GIB, anemia and ESRD creatinine 7.9.
- denies CP at rest.
- EKG stable
- troponin are hovering near 1, additional troponin ordered
- admits to exertional SOB and chest pressure for 2-3 months.
GIB - recurrent.
- GI consulted, colonoscopy 12/11/23.
- anemia noted.
CAD - prior CABG and LAD PCI 07/2022.
- last cardiac cath 02/[address] Brice, noncritical restenosis in the LAD distal to the TRACEY graft touchdown site with multiple layers of stent, no further stenting recommended.
- Plavix stopped at last admission 12/09/23, only on ASA 81mg daily.
- recommend continue ASA 81mg daily.
- seen by Dr. Cash this week for exertional angina, he recommended right and left heart cath with timing TBD.
Mitral regurgitation - mild to moderate.
- slight tethering of the subvalvular chordae.
- continue medical therapy.
Aortic stenosis - mild, mean gradient 11 mmHg.
- stable.
ESRD - on HD.
- missed HD yesterday due to hypotension.
- nephrology following and HD this am.
Physical Exam
Vital Signs/Labs
Vital Signs
Temp Pulse Resp BP Pulse Ox
97.9 F 81 16 116/61 100
12/21/23 07:35 12/21/23 08:31 12/21/23 07:35 12/21/23 08:31 12/21/23 07:35
12/20/23 12/21/23 12/22/23
06:59 06:59 06:59
Actual Weight 162 lb 8 oz 165 lb 11.2 oz
12/21/23 07:24
12/21/23 07:24
Magnesium 2.1 mg/dl (1.6-2.3) 12/21/23 07:24
LAB Results
12/18/23 12/19/23 12/19/23
19:41 01:52 07:49
Troponin I 0.978 H* 0.934 H* 0.970 H*
12/19/23 12/19/23 12/19/23
14:11 16:43 23:35
Troponin I 0.873 H* 0.795 H* Cancelled
12/20/23 12/20/23 12/20/23
01:00 04:43 06:34
Troponin I Cancelled Cancelled 1.060 H*
12/20/23 12/20/23 12/20/23
12:58 17:09 23:01
Troponin I 0.913 H* 0.918 H* 0.814 H*
Physical Exam
Constitutional: No acute distress
EENT: Anicteric
Cardiovascular: Rhythm & rate is regular and Pedal edema is absent
Respiratory: Respiratory effort normal and Lungs clear to auscul.
GI: Soft
Neuro/Psych: AO x 3
Data Reviewed
-
Date of Service: December 21, 2023
Medical Decision Making: Reviewed Test Results
EKG: Tracing Personally Visualized and interpreted
Labs: Labs Reviewed by me
[2023-12-21] MEDS: RENVELA PO (10:53)
--- NOTE | 2023-12-21 11:15 | W.PN.NEPH.HD ---
Assessment
-
Seen on HD. no complaints. VSS, access ok. now on midodrine
challenge EDW
Progress Note - Hemodialysis
-
Date of Service: December 21, 2023
Duration: 30 minutes and 3 hours
Potassium Bath: 2
Calcium Bath: 2.5
Opti-Dialyzer: 160
Ultrafiltration: Other (3kg)
Blood Flow: 400
Dialysate Flow: 600
Heparin: 0
EPO: 27833 units
[2023-12-21] MEDS: ANUSOL HC 25 MG RECTAL ×2 (12:42→20:27)
[2023-12-21] MEDS: MIRALAX 17 GRAMS PO (12:42)
[2023-12-21] MEDS: IMDUR (EXTENDED RELEASE) 30 MG PO ×2 (12:43→20:28)
[2023-12-21] MEDS: LOPRESSOR 25 MG PO ×2 (12:43→20:27)
[2023-12-21] MEDS: VITAMIN B-12 100 MCG PO (12:43)
[2023-12-21] MEDS: RENVELA 800 MG PO ×2 (12:43→17:13)
[2023-12-21] MEDS: ROCALTROL 1 MCG PO (12:48)
[2023-12-21] MEDS: NSS 250 IV (17:05)
[2023-12-21] MEDS: ZYLOPRIM 100 MG PO (20:28)
[2023-12-21] MEDS: LIPITOR 40 MG PO (20:28)
[2023-12-22] VITALS (7 sets, daily range): BP systolic 18–110; BP diastolic 45–59; BMI 26.9
[2023-12-22 07:35] LABS: % Basophils 0.4 % (0-2); % Eosinophils 2.5 % (0-6); % Immature Granulocytes 0.6 % (0-0.5); % Lymphocytes 24.6 % (20.5-51.1); % Neutrophils 61.9 % (42.2-75.2); Absolute Eosinophils 0.1 10^3/uL (0-0.7); Absolute Lymphocytes 1.3 10^3/uL (1.2-3.4); Absolute Monocytes 0.5 10^3/uL (0.1-0.6); Absolute Neutrophils 3.3 10^3/uL (1.4-6.5); Hematocrit 28.8 % (39.0-52.0); Hemoglobin 9.1 g/dL (13.0-18.0); Mean Corp Hgb Conc. 31.6 g/dL (33.0-37.0); Mean Corpuscular Hgb 32.2 pg (27.0-31.0); Mean Corpuscular Volume 101.8 fL (80.0-94.0); Mean Platelet Volume 12.3 fL (7.4-10.4); Nucleated Red Blood Cells % 0 % (-); Platelet Count 125 10^3/uL (130-400); Red Blood Cell Count 2.83 10^6/uL (4.70-6.10); Red Cell Dist. Width 16.1 % (11.5-14.5); White Blood Cell Count 5.3 10^3/uL (4.8-10.8)
[2023-12-22 07:44] LABS: Blood Urea Nitrogen 37 mg/dl (9-20); Calcium 10.2 mg/dl (8.4-10.2); Carbon Dioxide 25 mmol/L (22-30); Chloride 98 mmol/L (98-107); Estimated Creatinine Clearance 10 ml/min; Glucose 96 mg/dl (70-99); Magnesium 2.2 mg/dl (1.6-2.3); Potassium 4.8 mmol/L (3.5-5.1); Sodium 137 mmol/L (135-145); eGFR 9.64
--- NOTE | 2023-12-22 08:04 | W.PN.CD ---
Today's Communication / Plan
-
- stable for Flex sig today
- Let's try Imdur 60 on non HD days.
Impression / Plan
-
Impression: 73M with severe CAD admitted with dyspnea. he had been having anginal CP for several months and was scheduled for left and right heart cath at [facility] (usual soft drink powder mixer is Dr. palmer at [facility])
Plan
Dyspnea - we suspect he has chronic severe HFpEF
- HD for volume removal
- Right heart cath 03/13/2023 confirmed severe heart failure at weight of about 74.6 kg:
AO: 167/80
LV: 167/24
PCWP: 32
PA: 64/34
RV: 64/15
RA: 14
Oximetry: Ao 92%, PA 67%, cardiac output 4.7, cardiac index 2.6
- Last echo 06/2023: Normal LV and RV size and function. Stage II diastolic dysfunction. Mild biatrial enlargement. Mild aortic stenosis, mean gradient across the valve is 11 mmHg
- Last cath 03/13/2023: Severe [place] CAD similar to the prior study with patent JUAN-LAD, SVG-diagonal, and LRA-RPDA bypass grafts. There is noncritical restenosis in the LAD distal to the TRACEY graft touchdown site. This patient has had multiple
layers of stent placed in the LAD distal to the TRACEY graft touchdown site and would not recommend further stenting at this time
Acute non-ischemic myocardial injury - in the setting of acute GIB, anemia and ESRD creatinine 7.9.
- denies CP at rest.
- EKG stable
- troponins trending down
- admits to exertional SOB and chest pressure for 2-3 months.
GIB - recurrent.
CAD - prior CABG and LAD PCI 07/2022.
- last cardiac cath 02/[address] Brice, noncritical restenosis in the LAD distal to the TRACEY graft touchdown site with multiple layers of stent, no further stenting recommended.
- Plavix stopped at last admission 12/09/23, only on ASA 81mg daily.
- recommend continue ASA 81mg daily.
- seen by Dr. Cash this week for exertional angina, he recommended right and left heart cath with timing TBD. Challenging situation with borderline BPs limiting medical therapy.
- I would be surprised (pleasantly) if he was made symptom free.
- originally on Imdur 120 -> he asked to take 60 BID but his soft drink powder mixer at the time (Dr. Maxwell) noted that one typically needs a nitrate free interval. He was switched to [address] Maxwell retired and we have lowered it to 30 BID due to
hypotension.
Mitral regurgitation - mild to moderate.
- slight tethering of the subvalvular chordae.
- continue medical therapy.
Aortic stenosis - mild, mean gradient 11 mmHg.
- stable.
ESRD - on HD.
Subjective: He reports exertional dyspnea. He will then have chest pain if he continues. The pattern is unchanged for months
Laboratory Data
12/20/23 12/20/23 12/20/23
06:34 12:58 17:09
Hgb
Troponin I 1.060 H* 0.913 H* 0.918 H*
12/20/23 12/22/23
23:01 06:46
Hgb 9.1 L
Troponin I 0.814 H*
Generic Name Dose Route Start Last Admin
Trade Name Freq PRN Reason Stop Dose Admin
Atorvastatin Calcium 40 mg 12/18/23 22:00 12/21/23 20:28
Atorvastatin (Lipitor) 40 Mg Tablet PO 01/15/24 21:59 40 mg
HS ZACHARY
Isosorbide Mononitrate 30 mg 12/20/23 20:00 12/21/23 20:28
Isosorbide Mononitrate 30 Mg Extended Release Tablet PO 01/17/24 19:59 30 mg
BID ZACHARY
Metoprolol Tartrate 25 mg 12/20/23 20:00 12/21/23 20:27
Metoprolol 25 Mg Regular Release Tablet PO 01/17/24 19:59 25 mg
BID ZACHARY
Aspirin 81 mg 12/19/23 17:00 12/21/23 08:30
Aspirin 81 Mg (Enteric Coated) Tablet PO 01/16/24 16:59 81 mg
DAILY ZACHARY
Midodrine 5 mg 12/20/23 13:00 12/21/23 17:13
Midodrine 5 Mg Tablet PO 01/17/24 12:59 5 mg
TID@0800,1300,1800 ZACHARY
Physical Exam
Vital Signs/Labs
Vital Signs
Temp Pulse Resp BP Pulse Ox
37.1 C 90 22 110/59 98
12/22/23 03:05 12/22/23 03:05 12/22/23 03:05 12/22/23 03:05 12/22/23 03:19
12/21/23 12/22/23 12/23/23
06:59 06:59 06:59
Actual Weight 165 lb 11.2 oz 161 lb 12.8 oz
12/22/23 06:46
12/22/23 06:46
Magnesium 2.2 mg/dl (1.6-2.3) 12/22/23 06:46
LAB Results
12/19/23 12/19/23 12/19/23
07:49 14:11 16:43
Troponin I 0.970 H* 0.873 H* 0.795 H*
12/19/23 12/20/23 12/20/23
23:35 01:00 04:43
Troponin I Cancelled Cancelled Cancelled
12/20/23 12/20/23 12/20/23
06:34 12:58 17:09
Troponin I 1.060 H* 0.913 H* 0.918 H*
12/20/23
23:01
Troponin I 0.814 H*
Physical Exam
EENT: Anicteric
Cardiovascular: Rhythm & rate is regular, Pedal edema is absent, Systolic murmur absent and Diastolic murmur absent
Respiratory: Respiratory effort normal
GI: Soft, Distention absent and Normal bowel sounds
Neuro/Psych: Alert
Data Reviewed
-
Date of Service: December 22, 2023
[2023-12-22] MEDS: ANUSOL HC 25 MG RECTAL (08:48)
[2023-12-22] MEDS: VITAMIN B-12 100 MCG PO (08:48)
[2023-12-22] MEDS: VITAMIN D3 (cholecalciferol) 25 MCG PO (08:49)
[2023-12-22] MEDS: ASPIR LOW (ENTERIC COATED) 81 MG PO (08:49)
[2023-12-22] MEDS: MIRALAX 17 GRAMS PO (08:49)
[2023-12-22] MEDS: ProAmatine 5 MG PO ×3 (08:49→17:11)
[2023-12-22] MEDS: LOPRESSOR 25 MG PO (08:49)
[2023-12-22] MEDS: RENVELA PO ×2 (08:50→11:54)
[2023-12-22] MEDS: IMDUR (EXTENDED RELEASE) 60 MG PO (08:51)
--- NOTE | 2023-12-22 09:07 | W.PN.HOSP.TC ---
Today's Communication/Plan
-
EGD/Flexi meron today
DC planning
Assessment / Plan
Assessment / Plan
pt is a 73 year old male
SOB- mostly exertional-suspect secondary to chronic severe heart failure with preserved EF. continue dialysis for fluid management. Voicing no complaints now.
Recurrent rectal bleeding---suspected hemorrhoidal--HGB stable low 8s--apprec GI--consider EGD/flex sigm with possible banding on December 22, 2023---Anusol supp SC BID and Miralax daily--Continue Aspirin--Holding Plavix. Patient had a rectal bleeding
episode yesterday�H&H is stable.
Chronic anemia secondary to renal disease
ESRD on dialysis Thursday---Patient follows with [facility] [phone]--apprec renal--Continue Calcitrol, Sevelamer 1600 mg with meals. Continue with midodrine support with dialysis.
CAD - prior CABG and LAD PCI 07/2022/Cardiac stent July 2022/History of NSTEMI/Linq device---Patient was seen by Dr. Cash ([place]) this week for exertional angina, he recommended right and left heart cath with timing TBD--Also Follows with
card grader Dr. Mendoza at [facility]--Last cardiac cath 02/[address] Brice, noncritical restenosis in the LAD distal to the TRACEY graft touchdown site with multiple layers of stent, no further stenting recommended at that time--cont
atorvastatin, asa-continue with the decreased dose of IMDUR and metoprolol
-No anginal episodes during the hospital stay.
Mitral regurgitation - mild to moderate/Aortic stenosis - mild, mean gradient 11 mmHg.
Hyperlipidemia--Continue Atorvastatin
History of visual loss left eye due to vitreous hemorrhage March 2023--Vision loss resolved
Gout--Continue allopurinol
Enlarged Prostate
DVT prophylaxis: SCDs only due to bleeding
Full code
Contact Information and Communication with Patient's Family
personnel scheduler: Daughter Kiersten [phone]. The family also requested that his card grader Dr. Cash from [place] be updated and talk about medication - his number was noted to be [phone].
On December 19, 2023: Dr. Cole extensively spoke with patient's daughter Kiersten, and patient's Karely over the phone. They had many questions and concerns: they requested that patient's source of anemia be treated quickly, patient be assessed for
fluid overload and they wanted card grader, operations boardman and piece dye worker here to contact them to answer further questions. They wanted patient's EGD and flexible sigmoidoscopy studies to be done tomorrow. He explained that anemia in
patient's case can be due to more than 1 factor, including patient's end stage renal disease as well as a suspected gastrointestinal source of bleeding. Iron levels were noted to be okay and this was explained to them. He also tried calling
patient's card grader Dr. Cash at [phone], an answering service answered the phone and referred me to the on-call card grader Dr. Alban Charles who was able to pull up patient's records (including notes from Dr. Cash), while "Tr"Douglas was on the phone with him; Dr. Charles explained that Dr. Cash's notes suggested that patient was becoming more fluid overloaded and that Dr. Cash would speak to nephrology about removing more fluid during his dialysis sessions;
it was noted that on a previous cath there was no intervening target for PCI and that patient had significantly elevated filling pressures; plan by Dr. Cash was to repeat a right and left heart catheterization, restart Metoprolol and hold
Amlodipine. Dr. Charles mentioned that he will email Dr. Cash about our conversation and about the patient's current status.
DC planning based on Endo findings and treatments
Anticipated Discharge: Today
Subjective/Interval History
-
Date of Service: December 22, 2023
Had 1 bleeding episode with bowel movement yesterday. None today.
Denies any dizziness.
Objective Data
-
Labs:
Laboratory Results
12/22/23
06:46
WBC 5.3
Hgb 9.1 L
Hct 28.8 L
Plt Count 125 L
Sodium 137
Potassium 4.8
Chloride 98
Carbon Dioxide 25
BUN 37 H
Creatinine 5.8 H*
Glucose 96
Calcium 10.2
Vital Signs:
Vital Signs
Temp Pulse Resp BP Pulse Ox
97.7 F 79 16 101/56 97
12/22/23 07:40 12/22/23 08:49 12/22/23 07:40 12/22/23 08:49 12/22/23 07:40
I&O
12/21/23 12/22/23 12/23/23
06:59 06:59 06:59
Intake Total 360 / 360 1380 / 1380
Balance 360 / 360 1380 / 1380
Review of Systems
-
Respiratory: Denies Trouble Breathing
Cardiac: Denies Chest Pain
Abdomen/GI: Denies Abdominal Pain, Nausea or Vomiting
Neuro: Denies Dizzy
Physical Exam
-
General: Comfortable
HEENT: Moist Mucous Membranes
Respiratory: Non Labored Respirations; Negative Accessory Resp Muscle Use
Cardiac: Regular Rhythm and S1/S2
Neuro: AO x 3
Psych: Calm
Data Reviewed
-
Labs: Labs Reviewed by me
[2023-12-22] MEDS: IMDUR (EXTENDED RELEASE) PO (09:17)
--- NOTE | 2023-12-22 14:17 | CM ---
Addendum entered by Annmarie Wilson 12/22/23 15:52:
Bedside meeting with pt, spouse and dtr
Pt and spouse do not want VN, dtr can assist as needed at home
Flowsheets faxed to [phone]
Awaiting dc determination
Discharge Disposition- home, no needs
Original Note:
CM reviewed chart and ADC today pending GI procedure
Call with dtr/Kiersten to review dc planning
VN recommended by therapy and dtr in agreement
Provider choices reviewed over phone- she would like to research and vet agencies prior to making choice
She will call back with provider choice
IMM verbally reviewed over phone- copy left bedside per her request for visit later today
VN order requested and on chart
Discharge Disposition- home with VN (awaiting family's provider choice)
--- NOTE | 2023-12-22 14:17 | W.PN.NEPH.PH ---
Today's Communication / Plan
-
- HD tomororw
Assessment/Plan
-
IMP:
Acute rectal bleeding
ESRD on dialysis Thursday -[facility] [phone]
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 Mendoza at [facility]
Acute on Chronic anemia secondary to renal disease
Chronic thrombocytopenia
HTN�benign
Hx chronic diastolic CHF
CAD/CABG x 5 vessel
Cardiac stent July 2022
2D echo 07/16/2023: EF 60 to 65%, hypokinesis basal anteroseptal/inferior septal wall, stage II diastolic dysfunction, mild biatrial enlargement, mild aortic stenosis
HLD
Hx visual loss left eye due to vitreous hemorrhage March 2023
Gout
Plan:
midodrine 5mg TID
may need to reduce BP meds
HD tomorrow, will try to challenge EDW
Transfuse as needed. s/p flex sig today
follow hemoglobin
Per Dr. Duran:
long discussion with and daughter. They request interdisciplinary approach, but have no OP physicians at [facility] and do not go to ER/hospital where his cardiologists are. They say he was planned to have cardiac catheterization and then possibly a
procedure to drain the fluid AROUND his heart as discussed by [place] cardiology. They say that his CXR demonstrates fluid around the heart. They insist he is dehydrated because he is always thirsty and has low blood pressures. Dr Malave has reviewed
recent CXR showing pulmonary edema and last RHC 02/2023 with elevated PCWP. I reiterated that he appears to be volume overloaded and that UF has been limited by hypotension. He would be better suited going to [place] where there has already been a
defined plan in place. He will remain on fluid restriction. Last echo 06/2023 shows no pericaridal effusion.
If necessary, a RHC to confirm volume overload could be done.
-
-
Date of Service: December 22, 2023
CC / HPI / ROS
-
Chief Complaint:
ESRD
History of Present Illness:
BP low but stable
Hgb stable 9.1
tolerated HD, required midodrine
Review of Systems:
no SOB
reports CP chronic
weakness
Labs
-
Labs:
WBC 5.3 10^3/uL (4.8-10.8) 12/22/23 06:46
RBC 2.83 10^6/uL (4.70-6.10) L 12/22/23 06:46
Hgb 9.1 g/dL (13.0-18.0) L 12/22/23 06:46
Hct 28.8 % (39.0-52.0) L 12/22/23 06:46
Plt Count 125 10^3/uL (130-400) L 12/22/23 06:46
Sodium 137 mmol/L (135-145) 12/22/23 06:46
Potassium 4.8 mmol/L (3.5-5.1) 12/22/23 06:46
Chloride 98 mmol/L (98-107) 12/22/23 06:46
Carbon Dioxide 25 mmol/L (22-30) 12/22/23 06:46
BUN 37 mg/dl (9-20) H 12/22/23 06:46
Creatinine 5.8 mg/dL (0.7-1.3) H* 12/22/23 06:46
eGFR 9.64 12/22/23 06:46
Glucose 96 mg/dl (70-99) 12/22/23 06:46
Calcium 10.2 mg/dl (8.4-10.2) 12/22/23 06:46
Phosphorus 6.0 mg/dl (2.5-4.5) H 12/18/23 15:45
Albumin 3.8 g/dl (3.5-5.0) 12/19/23 16:43
Physical Exam
-
Vital Signs:
Vital Signs
Temp Pulse Resp BP Pulse Ox
97.3 F 73 18 93/49 96
12/22/23 14:03 12/22/23 14:03 12/22/23 14:03 12/22/23 14:03 12/22/23 14:03
Cardiovascular:: Regular rate and rhythm
Respiratory:: Bilateral: Coarse
Lung Excursion:: Normal
Abdomen:: Nontender and Soft
Bowel Sounds:: Normal
Extremity Edema:: +1: Bilateral:
Joseph Catheter: No
--- NOTE | 2023-12-22 16:03 | W.DS.TRANS ---
DC Summary - Correctional Therapy Director
-
Discharge Instructions:
Discharge Diagnosis/Procedures Rectal bleeding ? anal fissure and hemorrhoids;
hx of diverticulosis
Additional Diets high fiber diet
Activity As tolerated
Driving Restrictions As prior to admission
Bathing Restrictions None
Instructions:
Stand-Alone Forms:
Changes to Home Medications: Yes
Discharge Medications:
DC Medications w/original date entered in [employer]
allopurinol 100 mg tablet 100 mg PO HS Gout 08/26/22
atorvastatin 40 mg tablet 40 mg PO HS High cholesterol 08/26/22
nitroglycerin 0.4 mg sublingual tablet 0.4 mg sublingual [id number] PRN chest pain #25 tabs 08/26/22
sevelamer HCl 800 mg tablet 800 mg PO MEALS Kidney Disease 08/31/22
aspirin 81 mg capsule 81 mg PO DAILY Heart Disease/Condition 03/11/23
calcitriol 0.25 mcg capsule 1 mcg PO MOWEFR Kidney Disease 12/09/23
cholecalciferol (vitamin D3) 25 mcg (1,000 unit) tablet (Vitamin D3) 25 mcg PO DAILY Supplement 12/09/23
cyanocobalamin (vitamin B-12) 100 mcg tablet (Vitamin B-12) 100 mcg PO DAILY Supplement 12/09/23
furosemide 40 mg tablet 40 mg PO BID@0800,1600 Fluid Retention/Swelling 12/09/23
icosapent ethyl 1 gram capsule 1 g PO DAILY High Cholesterol 12/09/23
pantoprazole 40 mg tablet,delayed release (Protonix) 40 mg PO DAILY #30 tabs 12/12/23
hydrocortisone acetate 25 mg rectal suppository 25 mg GA BID #12 ea 12/22/23
isosorbide mononitrate 60 mg tablet,extended release 24 hr 60 mg PO DAILY #30 tabs 12/22/23
metoprolol tartrate 25 mg tablet 25 mg PO BID #60 tabs 12/22/23
midodrine 5 mg tablet 5 mg PO TID@0800,1300,1800 #90 tabs 12/22/23
nitroglycerin 0.4 % (w/w) rectal ointment (Rectiv) 1 inch GA BID #30 grams 12/22/23
polyethylene glycol 3350 17 gram oral powder packet (HealthyLax) 17 g PO DAILY #30 ea 12/22/23
psyllium husk 0.4 gram capsule (Metamucil) 0.4 g PO DAILY #30 caps 12/22/23
Home Medication Changes
New medication-Metamucil, MiraLAX, nitroglycerin rectal ointment, midodrine, Anusol
Change in medication-decrease dose of Imdur and metoprolol.
Pending Results: No
--- NOTE | 2023-12-24 17:56 | W.DCSUMMARY ---
Discharge Summary
Discharge Data
Date of Admission: 12/18/23
Date of Discharge: 12/22/23
-
Pending Results: No
Hospital Course
Primary diagnosis:
Recurrent rectal bleeding-suspected anal fissure related
History of diverticulosis
History of suspected hemorrhoidal bleeding
Secondary diagnosis:
End-stage renal disease on hemodialysis
Chronic anemia suspected secondary to renal disease
Coronary artery disease s/p prior coronary artery bypass
Coronary stent to the left anterior descending artery
Hyperlipidemia
Gout
Hospital course:
Patient was recently here for rectal bleeding that suspected hemorrhoidal. He also has a history of diverticulosis. He presented with a rectal bleeding again. It was not significant without any hemodynamic instability nor drop in H&H requiring
transfusion. He had a EGD which was negative for any acute source of bleeding. Also the flex sigmoidoscopy in view of her recent history of hemorrhoidal bleeding. It did show annular fissure in the posterior part. GI suspect may be anal fissure
was bleeding. There was some amount of blood in the rectum but no obvious active bleeding noted. They recommended nitroglycerin ointment. Advised To also continue with Anusol's for noted hemorrhoids which werent bleeding. He needs a full
colonoscopy as he could not tolerate full colonoscopy on recent attempt .
Consultants on board:
GI Samuel Banda
Nephrology -Sandee Grijalva
Cardiology - Haylee Fitzpatrick
Discharge Plan
-
Patient Disposition: Home with Home Care
Discharge Diagnosis/Procedures: Rectal bleeding ? anal fissure and hemorrhoids; hx of diverticulosis
Additional Diets: high fiber diet
Activity: As tolerated
Driving Restrictions: As prior to admission
Bathing Restrictions: None
Referrals:
Agnes Whelan MD [Active] - (for full colonscopy)
Lisa Torres MD [Family Provider] - in less than 1 week
Prescriptions:
New
hydrocortisone acetate 25 mg Suppository
25 mg ND BID Qty: 12 0RF
polyethylene glycol 3350 [HealthyLax] 17 gram Powder In Packet
17 g PO DAILY Qty: 30 0RF
isosorbide mononitrate 60 mg Tablet Extended Release 24 Hr
60 mg PO DAILY Qty: 30 0RF
metoprolol tartrate 25 mg Tablet
25 mg PO BID Qty: 60 0RF
midodrine 5 mg Tablet
5 mg PO TID@0800,1300,1800 Qty: 90 0RF
psyllium husk [Metamucil] 0.4 gram capsule
0.4 g PO DAILY Qty: 30 0RF
nitroglycerin [Rectiv] 0.4 % (w/w) ointment
1 inch ND BID Qty: 30 2RF
Continued
atorvastatin 40 mg Tablet
40 mg PO HS
allopurinol 100 mg Tablet
100 mg PO HS
nitroglycerin 0.4 mg tablet, sublingual
0.4 mg sublingual [id number] PRN (Reason: chest pain) Qty: 25 2RF
sevelamer HCl 800 mg Tablet
800 mg PO MEALS
aspirin 81 mg Capsule
81 mg PO DAILY
furosemide 40 mg tablet
40 mg PO BID@0800,1600
cyanocobalamin (vitamin B-12) [Vitamin B-12] 100 mcg Tablet
100 mcg PO DAILY
cholecalciferol (vitamin D3) [Vitamin D3] 25 mcg (1,000 unit) Tablet
25 mcg PO DAILY
icosapent ethyl 1 gram capsule
1 g PO DAILY
calcitriol 0.25 mcg Capsule
1 mcg PO MOWEFR
pantoprazole [Protonix] 40 mg tablet,delayed release (DR/EC)
40 mg PO DAILY Qty: 30 0RF
Discontinued
metoprolol tartrate 50 mg Tablet
50 mg PO BID
isosorbide mononitrate 60 mg tablet extended release 24 hr
60 mg PO BID
Discharge Orders:
Discharge Patient (As Directed); Ordered 12/22/23
Ordered By: Herman Osman
Discharge Date and Time
Discharge Date/Time: 12/22/23 17:17
Print Language: ITALIAN
== END 2023-12-22 17:17 | disposition home or self-care (01) | DRG 377 ==
LOC: 2 NORTH 17:51
PROVIDERS: Internal Medicine Gastroenterology; ADMITTING PHYSICIAN Hospitalist; ATTENDING PHYSICIAN Internal Medicine; CONSULT PHYSICIAN Internal Medicine Cardiovascular Disease; CONSULT PHYSICIAN Internal Medicine Gastroenterology; CONSULT PHYSICIAN Specialist; EMERGENCY PHYSICIAN Emergency Medicine; FAMILY PHYSICIAN Internal Medicine
PROC: 5A1D70Z Performance of Urinary Filtration, Intermittent, Less than 6 Hours Per Day (ICD-10-PCS; 2023-12-19)
PROC: 0DJD8ZZ Inspection of Lower Intestinal Tract, Via Natural or Artificial Opening Endoscopic (ICD-10-PCS; 2023-12-22)
PROC: 0DJ08ZZ Inspection of Upper Intestinal Tract, Via Natural or Artificial Opening Endoscopic (ICD-10-PCS; 2023-12-22)
DX: K57.31 Diverticulosis of large intestine without perforation or abscess with bleeding (principal); N18.6 End stage renal disease; D62 Acute posthemorrhagic anemia; I50.32 Chronic diastolic (congestive) heart failure; I13.2 Hypertensive heart and chronic kidney disease with heart failure and with stage 5 chronic kidney disease, or end stage renal disease; I5A Non-ischemic myocardial injury (non-traumatic); K64.8 Other hemorrhoids; I95.3 Hypotension of hemodialysis; I25.10 Atherosclerotic heart disease of native coronary artery without angina pectoris; E78.00 Pure hypercholesterolemia, unspecified; D63.1 Anemia in chronic kidney disease; D69.6 Thrombocytopenia, unspecified; I34.0 Nonrheumatic mitral (valve) insufficiency; K44.9 Diaphragmatic hernia without obstruction or gangrene; N40.0 Benign prostatic hyperplasia without lower urinary tract symptoms; K21.9 Gastro-esophageal reflux disease without esophagitis; K60.2 Anal fissure, unspecified; H54.62 Unqualified visual loss, left eye, normal vision right eye; K64.4 Residual hemorrhoidal skin tags; I35.0 Nonrheumatic aortic (valve) stenosis; E83.39 Other disorders of phosphorus metabolism; M10.9 Gout, unspecified; I44.7 Left bundle-branch block, unspecified; Z95.1 Presence of aortocoronary bypass graft; Z99.2 Dependence on renal dialysis; Z95.5 Presence of coronary angioplasty implant and graft; Z79.82 Long term (current) use of aspirin; I25.2 Old myocardial infarction; Z79.02 Long term (current) use of antithrombotics/antiplatelets; Z87.19 Personal history of other diseases of the digestive system; Z87.442 Personal history of urinary calculi
CPT/HCPCS: 71045; 74018; 80048; 80053; 82728; 82962; 83540; 83550; 83605; 83735; 84100; 84484; 85025; 86850; 86900; 86901; 87040; 87070; 93005; 96360; 97162; 97166; 99291; G0257; P9047; Q5106

== ENCOUNTER → 2024-05-31 12:29 | Outpatient (REF) | payer MEDICARE, OTHER, SELFPAY | LOC: RAD 12:29 | PROVIDERS: ATTENDING PHYSICIAN Surgery Vascular Surgery | DX: I73.9 Peripheral vascular disease, unspecified (principal) | CPT/HCPCS: 93922; 93925 ==

== ENCOUNTER 2024-07-17 20:36 | Inpatient (IN) | payer MEDICARE, OTHER, SELFPAY ==
[2024-07-17] VITALS (24 sets, daily range): BP systolic 94–126; BP diastolic 45–101; BMI 26.9
[2024-07-17 17:37] LABS: % Basophils 0.2 % (0-2); % Eosinophils 0.1 % (0-6); % Immature Granulocytes 0.6 % (0-0.5); % Lymphocytes 5.4 % (20.5-51.1); % Monocytes 10.5 % (1.7-9.3); % Neutrophils 83.2 % (42.2-75.2); Absolute Immature Granulocytes 0.1 10^3/uL (0-0.05); Absolute Lymphocytes 0.6 10^3/uL (1.2-3.4); Absolute Monocytes 1.2 10^3/uL (0.1-0.6); Absolute Neutrophils 9.4 10^3/uL (1.4-6.5); Hematocrit 38.8 % (39.0-52.0); Hemoglobin 12.2 g/dL (13.0-18.0); Mean Corp Hgb Conc. 31.4 g/dL (33.0-37.0); Mean Corpuscular Hgb 31.8 pg (27.0-31.0); Mean Platelet Volume 12.6 fL (7.4-10.4); Nucleated Red Blood Cells % 0 % (-); Platelet Count 90 10^3/uL (130-400); Red Blood Cell Count 3.84 10^6/uL (4.70-6.10); Red Cell Dist. Width 13.8 % (11.5-14.5); White Blood Cell Count 11.3 10^3/uL (4.8-10.8)
[2024-07-17] MEDS: NSS 250 ML IV (18:13)
[2024-07-17 18:36] LABS: Troponin I 0.245 ng/ml
--- NOTE | 2024-07-17 18:36 | ED.GENMED ---
History of Present Illness
General
Chief Complaint: Chest Pain
Source: patient, records and spouse
Exam Limitations: none
Time Seen by Provider: 07/17/24 17:12
Nursing documentation reviewed up to this point in time: agreed with
History of Present Illness
History of Present Illness:
Patient is a 74-year-old male who has been on dialysis for 7-1/2 years and at the end of dialysis today patient went unresponsive. Staff could not find a pulse and started doing CPR. Patient came back around and then refused to go by EMS. Patient
states during dialysis today he developed sharp chest pain which did not feel like his cardiac chest pain. Patient denied any shortness of breath, diaphoresis or palpitations. Patient not taking his isosorbide or aspirin as he is supposed to in
the morning. Patient then took his isosorbide and after about half an hour the chest pain resolved. 2 days ago the patient had 1 episode of nausea and vomiting. Patient had an episode of vomiting when he came back around today. Patient denies
any recent illnesses or injuries. Patient has a history of cardiac disease. Patient has end-stage renal disease. Patient is feeling better at this time but his chest hurts to the touch.
Past History
Past History
ED Past Medical History: CAD, GERD, HTN, Hypercholesterolemia, Renal failure (Thursday) and Other (Gout)
ED Past Surgical History: Appendectomy and Cardiac (cardiac stent, Open heart)
Social History
Tobacco: Non-smoker
Alcohol: None
Drug: None
Personal:
Living: with family
Review of Systems
Review of Systems
All Other Systems: ROS reviewed and negative except as documented in HPI and ROS
Constitutional: Reports no symptoms
EENT: Reports no symptoms
Respiratory: Reports no symptoms
Cardiac: Reports chest pain and syncope; Denies diaphoresis or palpitations
ABD/GI: Reports no symptoms
: Reports other (Dialysis Thursday, Thursday and Thursday. It was today which is Thursday because of [place] on Thursday.)
Musculoskeletal: Reports no symptoms
Skin: Reports no symptoms
Neurological: Reports no symptoms
Hematologic/Lymphatic: Reports no symptoms
Phy Exam
Physical Exam
Physical Exam:
Physical Exam
General: No apparent distress, alert and appropriate, well nourished, well hydrated
HENT: Normocephalic, supple with no lymphadenopathy, no thyromegaly
Eyes: Clear sclera, conjuctiva without injection
Heart: Regular rhythm with periods of irregularity and mildly tachycardic rate. No S3, S4. No murmur. No NVD
Lungs: No respiratory distress, no stridor, lung sounds clear and equal bilaterally, chest wall symmetrical and with reproducible sternal tenderness but no crepitus, deformity or subcutaneous emphysema
Abdomen: Soft, nontender, no organomegaly, BS good
Neuro: Alert and oriented x 3, CN II - XII intact, no motor focality, no cerebellar dysfunction
Skin: no rash
Psychiatric: well kept. interactive and cooperative
Extremities: No edema, cyanosis, tenderness
Scores
Heart Score for Chest Pain Patients
STEMI patient?: Not applicable
Course
Orders/Labs/Results
Orders:
Orders
07/17/24 Breakfast
Sodium, 2 Gram
At Your Request: Full Participation
Does patient need a safe tray?: No
Fluid Restriction: 1500 mL/day (50 oz)
Low Sodium: Cholesterol Lowering
07/17/24 16:34
Electrocardiogram (*1) Urgent
Reason for Study: Chest Pain
EKG- Treatment ONCE
07/17/24 17:19
Complete Blood Count/With Diff Urgent
07/17/24 17:24
Chest X-ray Portable [CR Chest Portable - 1 View] Urgent
Comment:
Reason For Exam: post CPR and CP
Reason Study Needs to be Portable: Patient Unstable
07/17/24 17:56
Troponin I Urgent
07/17/24 18:10
0.9% Sodium Chloride 250 ml [Nss] 250 ml IV NOW STA
07/17/24 18:35
Comprehensive Metabolic Panel Urgent
Magnesium Urgent
07/17/24 20:07
ECG [Electrocardiogram (*1)] Urgent
Reason for Study: Chest Pain
0.9% Sodium Chloride 250 ml [Nss] 250 ml IV BOLUS
Aspirin Chewable [Low Strength Aspirin] 324 mg PO NOW STA
07/17/24 20:08
Amiodarone [Cordarone] 150 mg Dextrose 5%/Water 100 ml [D5w] 100 ml IV NOW
07/17/24 20:13
Midodrine [ProAmatine] 10 mg PO NOW STA
07/17/24 20:19
Heparin Protocol- PTT Orders As Directed
PTT per Heparin protocol: -Obtain CBC and baseline PTT - if not already collected.
-Obtain PTT 6 hours from start of infusion. Then, every 6 hours until 2 consecutive
PTT's are therapeutic. Then, PTT Daily.
-With each rate change, obtain PTT every 6 hours until 2 consecutive PTT's are
therapeutic. Then, PTT Daily.
Notify MD As Directed
Notify physician if: PTT is greater than or equal to 200.
07/17/24 20:24
Admit/Transfer Patient As Directed
Co-Sign Provider:
Level of Care: Inpatient admission
Assign to:: IVU
Physician / Group: Karine
Diagnosis: NSTEMI, SVT
Reason for Hospitalization: heparin drip, amiodarone drip, Cardiology consult
Expected length of stay greater than two midnights?: Yes
ELOS- Estimated Length of Stay in days: 3
I certify the patient meets the requirements for IP care: Yes
07/17/24 20:25
PRN Pain Medication Management As Directed
May give lesser potent ordered pain med per pt: Yes
preference::
Protocol:: Medication orders for pain may be administered in a
manner that supports deferring to patient preference
when the pt is:
- Requesting an ordered lesser potent pain medication.
Least to most potent pain medications are defined
as: acetaminophen < NSAID < tramadol < opioids
(morphine, oxycodone, hydromorphone).
- Requesting a lesser dose of the same medication IF
ORDERED.
- Requesting a less intrusive route of administration
if both routes are prescribed by the provider (PO <
IV).
07/17/24 20:26
Code Status As Directed
Resuscitation Status: Full Code
07/17/24 20:30
Heparin 95012 Units/250 ml 25,000 units in 250 ml IV PER PROTOCOL
Weight to be used for heparin protocol in kilograms (kg):: 80
Protocol:: Cardiac Tx/Acute Coronary
PTT Goal Range to be used:: PTT 73 to 111 seconds
Order type:: Initial
INITIAL Infusion Dose (UNITS/KG/hr) & then follow protocol:: 12 units/kg/hr
Infusion Dose in UNITS/hr & then follow protocol (UNITS/hr):: 950
INFUSION RATE in mL/hr & then follow protocol (mL/hr):: 9.5
PTT less than or equal to 64 seconds:: Increase rate by 200 units/hr (+ 2 mL/hr)
PTT 64.1 to 72.9 seconds:: Increase rate by 100 units/hr (+ 1 mL/hr)
PTT 73 to 111 seconds:: Target Range. No change in rate.
PTT 111.1 to 130.9 seconds:: Decrease rate by 100 units/hr (- 1 mL/hr)
PTT 131 to 199.9 seconds:: HOLD for 1 hr. Then decrease rate by 200 units/hr (- 2 mL/hr)
PTT greater than or equal to 200 seconds:: HOLD for 2 hrs & Notify Provider. Then decrease by 200 units/hr (-
2 mL/hr)
Lab follow-up:: Each change, PTT q6h until 2 consecutive are therapeutic. Then PTT
daily.
07/17/24 20:51
PTT Urgent
Comment: Obtain baseline before beginning heparin infusion if not already collected
07/17/24 21:41
Acetaminophen [Tylenol] 650 mg PO Q4HPRN PRN
Amiodarone [Cordarone] 900 mg DEXTROSE 5% PVC-free BAG [D5W PVC-free BAG] 500 ml IV PER PROTOCOL
Initial Dose in mg/min:: 1
Duration of initial dose (hours):: 6
Subsequent dose in mg/min:: 0.5
Duration of subsequent dose (hours):: 18
Maximum dose in mg/min:: 1
Hold and notify provider if:: Heart rate < 60 BPM or SBP < 90 mmHg or MAP < 60 mmHg
07/17/24 21:41
CARDIOLOGY CONSULT Routine
Consulting Provider: Andrew Hooper
Was physician already notified: Yes
NEPHROLOGY CONSULT Routine
Consulting Provider: Jose Guadalupe Bravo
Was physician already notified: Yes
Activity As Directed
Activity Level: Out of Bed- Chair
I&O [Intake/ Output] As Directed
Frequency: q12h
Vital Signs As Directed
Frequency: Per unit guidelines
Weight As Directed
Frequency: Daily
07/17/24 22:00
Allopurinol [Zyloprim] 100 mg PO HS
Atorvastatin [Lipitor] 40 mg PO HS
07/17/24 22:41
Troponin I Q6H
07/18/24 00:00
Metoprolol [Lopressor] 12.5 mg PO Q6
07/18/24 04:00
Troponin I Q6H
07/18/24 Breakfast
NPO
Allow oral meds: Yes
Allow clear liquids: 4hrs prior to procedure
Comment: may have unrestricted clear liquid up to 4 hrs prior to scheduled procedure
Basic Metabolic Panel IN AM
Complete Blood Count/No Diff IN AM
07/18/24 07:30
Sevelamer Carbonate [Renvela] 2,400 mg PO AC
07/18/24 08:00
Aspirin Low Dose EC [Aspir Low (Enteric Coated)] 81 mg PO DAILY
Cholecalciferol (Vitamin D3) [VITAMIN D3 (cholecalciferol)] 25 mcg PO DAILY
Cyanocobalamin [Vitamin B-12] 100 mcg PO DAILY
ISOSORBIDE MONOnitrate ER [Imdur (Extended Release)] 60 mg PO BID
07/19/24 06:00
Complete Blood Count/No Diff Q2D
Comment: Notify MD if platelet count is <130,000 or decreases by 50% from baseline
07/21/24 06:00
Complete Blood Count/No Diff Q2D
Comment: Notify MD if platelet count is <130,000 or decreases by 50% from baseline
07/23/24 06:00
Complete Blood Count/No Diff Q2D
Comment: Notify MD if platelet count is <130,000 or decreases by 50% from baseline
07/25/24 06:00
Complete Blood Count/No Diff Q2D
Comment: Notify MD if platelet count is <130,000 or decreases by 50% from baseline
07/27/24 06:00
Complete Blood Count/No Diff Q2D
Comment: Notify MD if platelet count is <130,000 or decreases by 50% from baseline
07/29/24 06:00
Complete Blood Count/No Diff Q2D
Comment: Notify MD if platelet count is <130,000 or decreases by 50% from baseline
07/31/24 06:00
Complete Blood Count/No Diff Q2D
Comment: Notify MD if platelet count is <130,000 or decreases by 50% from baseline
08/02/24 06:00
Complete Blood Count/No Diff Q2D
Comment: Notify MD if platelet count is <130,000 or decreases by 50% from baseline
Abnormal Lab Results
07/17/24 07/17/24 07/17/24
17:19 17:56 18:35
WBC 11.3 H 10^3/uL
(4.8-10.8)
RBC 3.84 L 10^6/uL
(4.70-6.10)
Hgb 12.2 L g/dL
(13.0-18.0)
Hct 38.8 L %
(39.0-52.0)
MCV 101.0 H fL
(80.0-94.0)
MCH 31.8 H pg
(27.0-31.0)
MCHC 31.4 L g/dL
(33.0-37.0)
Plt Count 90 L 10^3/uL
(130-400)
MPV 12.6 H fL
(7.4-10.4)
Abs Immat Gran (auto) 0.1 H 10^3/uL
(0-0.05)
Absolute Neuts (auto) 9.4 H 10^3/uL
(1.4-6.5)
Absolute Lymphs (auto) 0.6 L 10^3/uL
(1.2-3.4)
Absolute Monos (auto) 1.2 H 10^3/uL
(0.1-0.6)
Immature Gran % 0.6 H %
(0-0.5)
Neutrophils % 83.2 H %
(42.2-75.2)
Lymphocytes % 5.4 L %
(20.5-51.1)
Monocytes % 10.5 H %
(1.7-9.3)
Chloride 97 L mmol/L
(98-107)
BUN 40 H mg/dl
(9-20)
Creatinine 5.5 H* mg/dL
(0.7-1.3)
Glucose 153 H mg/dl
(70-99)
Alkaline Phosphatase 192 H U/L
(38-126)
Troponin I 0.245 H* ng/ml
Total Protein 6.2 L g/dl
(6.3-8.2)
07/17/24 17:19
07/17/24 18:35
Vital Signs
Initial and Last Documented VS:
Initial Vital Signs
Temp Pulse Resp BP Pulse Ox
98.5 F 70 18 115/54 100
07/17/24 16:38 07/17/24 16:38 07/17/24 16:38 07/17/24 16:38 07/17/24 16:38
Last Documented Vital Signs
Temp Pulse Resp BP Pulse Ox
99.2 F 120 16 95/62 96
07/17/24 23:53 07/18/24 00:00 07/17/24 23:53 07/17/24 23:58 07/17/24 23:53
*Pulse Oximetry
Patient hypoxic: no
*EKG
Interpreted by ED Provider?: Yes
EKG Intrepretation Date: 07/17/24
EKG Intrepretation Time: 18:40
Interpretation: abnormal
Comparison EKG: changes noted
Heart Rate: 110
Rate: tachycardiac
Rhythm: sinus, PVC's and other (Fusion beats)
Molt: left axis deviation
Interval: normal interval
QRS Pattern: right bundle branch block
Ischemia: non-specific ST changes
*[employer]richment Specialist Interpretation
Rate: tachycardiac
Interpretation: abnormal
Heart Rate: 110
Rhythm: sinus, PVC's and other (Fusion beats)
*Critical Care Note
Total Time (30-74mins, 75-104mins- exclusive of procedures): 45 minutes
Update Note
Update Note:
Patient troponin is elevated but is actually low for the patient. Patient appears to continue to have ventricular arrhythmia versus possible atrial fibrillation or SVT. Patient has had fusion beats and looks like PVCs along with the above.
Patient was given a dose of amiodarone. Patient will be admitted.
ED Attending Note
-
Portions of this chart may have been created with voice recognition software.� Occasional wrong word or��sound alike� substitutions may have occurred due to the inherent limitations of voice recognition software.
Discharge Plan
Departure
Patient Disposition: Admit
Date of Disposition: 07/17/24
Time of Disposition: 19:09
Admit to: IMU
Admit to doctor: Hospitalist
Presentation/result/management discussed w/ accepting MD/DO: Hospitalist
Patient with high blood pressure during this ER visit?: No
Condition: Serious
Covid-19: Not Applicable
Discharge Problem:
Cardiac arrest with successful resuscitation, Arrhythmia, ventricular
Interventions
Interventions:
*Risk Screen - Suicide Last Done: 07/17/24 16:38
*General Assessment Last Done: 07/17/24 16:38
*Neglect/Abuse Screening Last Done: 07/17/24 16:38
ED- Fall Risk Assessment Last Done: 07/17/24 18:00
*ED COVID-19 Vaccine History Last Done: 07/17/24 16:38
*Nursing Disposition Last Done: 07/17/24 21:40
ED- Cardiac Assessment Last Done: 07/17/24 18:00
Discharge Date and Time
Discharge Date/Time: 07/17/24 21:42
[2024-07-17 19:05] LABS: ALT (SGPT) 16 U/L (0-50); AST (SGOT) 17 U/L (17-59); Albumin 3.9 g/dl (3.5-5.0); Alkaline Phosphatase 192 U/L (38-126); Blood Urea Nitrogen 40 mg/dl (9-20); Calcium 9.4 mg/dl (8.4-10.2); Carbon Dioxide 27 mmol/L (22-30); Chloride 97 mmol/L (98-107); Glucose 153 mg/dl (70-99); Magnesium 2.2 mg/dl (1.6-2.3); Potassium 4.9 mmol/L (3.5-5.1); Sodium 137 mmol/L (135-145); Total Bilirubin 0.7 mg/dl (0.2-1.3); Total Protein 6.2 g/dl (6.3-8.2); eGFR 10.21
--- NOTE | 2024-07-17 19:32 | HPS.HSE ---
Family Physician
-
Family Physician: NOT KNOW UNKNOWN - PT DOES
Chief Complaint
-
Chest Pain and Syncopal Episode
History of Present Illness
Patient is a 74 y/o male past medical history of CAD, CHF, and ESRD on HD who presents following an episode of chest pain and loss of consciousness. Patient was at dialysis today when he started to developed chest pain. He had not taken his usual
medications so he took a dose of his isosorbide and about 30 min later this pain improved. However toward the end of his dialysis he went unconscious. Apparently staff at the dialysis center couldn't find a pulse and started CPR. Patient quickly
recovered and refused for EMS to be called, and his brought him to the emergency department for evaluation.
Medical History
Past Medical History
Past Medical History: Reports Other
Additional Past Medical History:
CAD s/p CABG x 5 vessel/cardiac stent
Chronic HFpEF
ESRD on HD MoWeFr
Chronic Anemia/Thrombocytopenia
Essential Hypertension
Hyperlipidemia
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
Gout
GI Bleed
Past Surgical History: Reports Other
Additional Past Surgical History:
CAD status post CABG x 5 vessel/cardiac stent
Appendectomy
Colonoscopy May 2022 with benign polypectomy x 2
Social History
Tobacco: Non-smoker
Alcohol: None
Drug: None
Personal:
Living: With Family ()
Employment: Retired
Family History
Family History: Not pertinent
Allergies / Home Medications
Allergies reflects when Allergies were last updated in [facility].
Home Medications with original date entered in [facility]
Allergy/Medication List:
Allergies
Allergy/AdvReac Type Severity Reaction Status Date / Time
No Known Allergies Allergy Verified 12/18/23 12:47
Home Medications
allopurinol 100 mg tablet 100 mg PO HS Gout 08/26/22
atorvastatin 40 mg tablet 40 mg PO HS High cholesterol 08/26/22
sevelamer HCl 800 mg tablet 2,400 mg PO AC Kidney Disease 08/31/22
aspirin 81 mg capsule 81 mg PO DAILY Heart Disease/Condition 03/11/23
cholecalciferol (vitamin D3) 25 mcg (1,000 unit) tablet (Vitamin D3) 25 mcg PO DAILY Supplement 12/09/23
cyanocobalamin (vitamin B-12) 100 mcg tablet (Vitamin B-12) 100 mcg PO DAILY Supplement 12/09/23
metoprolol tartrate 25 mg tablet 25 mg PO BID #60 tabs 12/22/23
isosorbide mononitrate 60 mg tablet,extended release 24 hr 60 mg PO BID 07/17/24
midodrine 10 mg tablet 10 mg PO MOWEFR 07/17/24
Review of Systems
-
A 12 point ROS was completed and negative except as noted: Yes
Constitutional: Denies Fever or Chills
Respiratory: Denies Cough or Trouble Breathing
Cardiac: Reports See HPI
Physical Exam
Vital Signs
Vital Signs
Temp Pulse Resp BP Pulse Ox
98.5 F 122 21 101/50 67
07/17/24 16:38 07/17/24 19:15 07/17/24 19:15 07/17/24 19:15 07/17/24 18:58
Physical Exam
General: Comfortable and Conversant
HEENT: Anicteric and Moist mucous membranes
Respiratory: Clear and Non Labored Respirations
Cardiac: S1/S2, Irregular Rhythm and Tachycardia
GI: Soft and Non Tender
Rectal: Deferred by Provider
Musculoskeletal: No Clubbing, No Cyanosis and No Edema
Skin: Warm and Dry
Neuro: Awake, Alert, Oriented and Nonfocal/grossly intact
Psych: Calm
Laboratory Results
-
07/17/24 17:19
07/17/24 18:35
Laboratory Results
Total Bilirubin 0.7 mg/dl (0.2-1.3) 07/17/24 18:35
AST 17 U/L (17-59) 07/17/24 18:35
ALT 16 U/L (0-50) 07/17/24 18:35
Alkaline Phosphatase 192 U/L (38-126) H 07/17/24 18:35
Troponin I 0.245 ng/ml H* 07/17/24 17:56
Data Reviewed
-
Lab Data: Labs Reviewed by me
Impression/Plan
-
Chest Pain with Elevated Troponin consistent with NSTEMI
-Reviewed with Cardiology
-Patient with known extensive coronary artery disease with CABG x5 and multiple stents
-Start heparin drip
-Continue aspirin
-Continue isosorbide
-NPO after midnight for possible cardiac testing tomorrow
Tachycardia, possibly SVT with aberrancy vs A-Fib
-Reviewed with Cardiology
-Continue amiodarone drip
-Continue metoprolol 12.5mg q6 if BP allows
Chronic Diastolic Heart Failure
-Continue fluid restriction
-Monitor Is&Os and Daily Weight
-Volume managed with dialysis
ESRD on HD
-Consult Nephrology
-Continue sevelamer
Chronic Anemia / Thrombocytopenia
-Monitor counts closely while on heparin drip
DVT proph: Heparin drip
Code Status: Full Code
[2024-07-17] MEDS: ProAmatine 10 MG PO (20:24)
[2024-07-17] MEDS: LOW STRENGTH ASPIRIN 324 MG PO (20:24)
[2024-07-17] MEDS: CORDARONE 103 MG IV (20:28)
[2024-07-17] MEDS: NSS 250 IV (20:44)
[2024-07-17] MEDS: HEPARIN 25000 UNITS/250 ML IV (21:04)
[2024-07-17 21:17] LABS: APTT 32.4 Sec (23.4-35.0)
--- NOTE | 2024-07-17 21:51 | W.PN.UPDATE ---
Update Note
Progress Note Update
Patient seen in conjunction with PHARMACY INNOVATION ASSISTANT. I agree with the findings on history and physical. I concur with the assessment and plan unless stated otherwise.
This is a 74-year-old male who has a past medical history of CAD status post CABG and stenting, ESRD on hemodialysis usually Thursday, hyperlipidemia, diastolic dysfunction presenting to the emergency department with syncopal episode
and possible cardiac arrest after dialysis today.
Patient had altered dialysis schedule due to the early day season. He did not take his morning medications including his midodrine or Imdur. In the middle of his dialysis session he developed chest pain and took his isosorbide mononitrate 60 mg.
He reported that about 30 minutes later his chest pain improved significantly. He completed the dialysis session. There was removal of 2.5 L dialysis. His last dialysis prior to that was on Thursday. At the end of the dialysis patient had a
syncopal episode. Staff checked the pulse and could not feel a pulse and was given brief CPR before it came around 2. When he came around he was alert and oriented and did not need to be intubated. He actually canceled EMS transport and was
brought to the hospital by spouse. On arrival in the ED he did have 1 episode of vomiting. He does feels sore.
Initial evaluation in the ED shows that he had a irregular heartbeat at a rate of 140s. His blood pressure was 100/50 and he was afebrile. His chest x-ray was clear. ECG shows a supraventricular tachycardia with aberrancy and frequent PVCs.
Unclear whether atrial fibrillation. His troponin was elevated at 0.2. Chest x-ray was clear. He had normal oxygen saturation. CBC shows a white count of 11.3 hemoglobin of 12.2 and a platelet count of 90 which is similar to prior. Potassium
was 4.9, bicarb was 27 and a sodium of 137.
On my exam he was alert and oriented and in no acute distress. He had chest pain that is reproducible to palpation but otherwise denies any symptoms. Fistula intact.
Assessment and plan -I suspect the patient had a syncopal episode likely due to hypotension in the setting of on dialysis and acute nitroglycerin use. He also did not take his usual dose of midodrine due to the altered timing of the dialysis.
However since he did have chest pain on dialysis cannot rule out ACS. He also had a irregular supraventricular rhythm on arrival. Patient had no prior history of atrial fibrillation. EF is preserved with diastolic dysfunction. He shows no signs
of acute heart failure here. No signs of acute infection. No seizure history. He is neurological intact with no deficits to suggest a stroke. Duration of chest compression is very brief and patient became alert and oriented and does not need
cooling measures.
- admit to ivu for possible ACS induced syncope
- aspirin 325, heparin gtt w/o bolus due to recent hd
- amiodarone gtt for rate control due to low bp, was transiently bradycardic during bolus and converted to sinus, d/w cardiology, continue gtt to maintain rhythm for now
- gentle iv fluids 500 ml bolus given recent dialysis with 2 L UF
- midodrine
- hold metoprolol
- echo in am
- cardiology consulted and aware, recs appreciated
- nephrology consult.
Code Status - Full code
[2024-07-17] MEDS: LIPITOR 40 MG PO (22:14)
[2024-07-17] MEDS: ZYLOPRIM 100 MG PO (22:14)
[2024-07-17] MEDS: CORDARONE 518 MG IV (22:46)
[2024-07-17] MEDS: LOPRESSOR PO (23:58)
[2024-07-18] VITALS (15 sets, daily range): BP systolic 90–129; BP diastolic 56–103; BMI 28.1
[2024-07-18 04:22] LABS: Hematocrit 36.7 % (39.0-52.0); Hemoglobin 11.8 g/dL (13.0-18.0); Mean Corp Hgb Conc. 32.2 g/dL (33.0-37.0); Mean Corpuscular Hgb 32.2 pg (27.0-31.0); Mean Corpuscular Volume 100.3 fL (80.0-94.0); Mean Platelet Volume 12.7 fL (7.4-10.4); Platelet Count 106 10^3/uL (130-400); Red Blood Cell Count 3.66 10^6/uL (4.70-6.10); Red Cell Dist. Width 13.7 % (11.5-14.5); White Blood Cell Count 9.1 10^3/uL (4.8-10.8)
[2024-07-18 04:41] LABS: APTT 60.2 Sec (23.4-35.0)
[2024-07-18 04:48] LABS: Blood Urea Nitrogen 49 mg/dl (9-20); Calcium 9.1 mg/dl (8.4-10.2); Carbon Dioxide 26 mmol/L (22-30); Chloride 97 mmol/L (98-107); Estimated Creatinine Clearance 9 ml/min; Glucose 191 mg/dl (70-99); Potassium 4.5 mmol/L (3.5-5.1); Sodium 136 mmol/L (135-145); eGFR 8.68
--- NOTE | 2024-07-18 05:25 | PTCARENOTE ---
Pt admitted to rm 2250. AAOx3, denies pain or SOB. Pt was able to ambulate independently. Oriented to the room, call ernst in reach.
[2024-07-18] MEDS: LOPRESSOR PO (06:31)
--- NOTE | 2024-07-18 08:07 | CON.CAR ---
Addendum entered and electronically signed by Rylan Perez MD 07/18/24 10:08:
Patient seen and examined in collaboration with PHOTOFINISHING LABORATORY WORKER; agree with below.
-74-year-old male with complex coronary artery disease, including CABG (2006) subsequent stenting, end-stage renal disease on dialysis presenting admitted with syncope, requiring CPR while at dialysis yesterday.
-The patient refused EMS at the time, but was willing for his to drive him to the ER.
-Implantable loop recorder interrogation showed that the patient had about 1 hour of monomorphic VT, and then asystole.
-The patient will undergo cardiac catheterization today (troponin is trending up) and subsequent ICD implantation (likely tomorrow) for secondary prevention of sudden cardiac .
-Continue heparin drip and amiodarone drip.
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
Original Note:
Consultation
Consultation Request
Date/Time Consultation Requested: 07/17/242140
Date/Time Consultation Performed: 07/18/24 0800
Requesting Provider: Jazmín FAIRBANKS
Performing Provider: Sherin CLEMENS for Dr. Perez
Reason for Consultation: NSTEMI, tachycardia
Medical History
-
Chief Complaint: chest pain, loss of consciousness
History of Present Illness:
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 Mendoza, also sees Dr. Cash in [place]) with severe CAD with hx CABG 2006 (?) and stenting (most recent 07/2022 per chart), ESRD on HD, GIB (per chart diverticular, hemorrhoids, and anal fissure-related), hx
HFpEF, Hx HTN (though on midodrine dialysis days), and implantable loop recorder who was having dialysis yesterday and had chest discomfort. He had forgotten to take his AM pills, so took them and CP went away. He reports he vomited and felt
light-headed and then per chart he lost consciousness and required CPR. He regained consciousness and declined EMS transport, but had his drive him in. In ER, he had more WCT, but has underlying bifascicular block. He was placed on amiodarone
drip and is now in SR with PVC's. His troponin is up to 5.14. He is in no distress at the time of my assessment. He is on amiodarone and heparin gtts. He received full dose aspirin. I interrogated his loop recorder, which revealed sustained
ventricular tachycardia and period of bradycardia with 4.4 second pause afterward as well.
Past Medical History
Past Medical History: CAD, CHF, HTN, Hypercholesterolemia, Renal Failure and Other (as above)
Social History
Tobacco: Non-Smoker
Personal:
Living: With Family
Family History
Family History: Reviewed & Not Pertinent
Allergies / Home Medications
Allergy/AdvReac Type Severity Reaction Status Date / Time
No Known Allergies Allergy Verified 12/18/23 12:47
�Medication �Instructions �Recorded �Confirmed �Type
allopurinol 100 mg tablet 100 mg PO HS Gout 08/26/22 07/17/24 History
atorvastatin 40 mg tablet 40 mg PO HS High cholesterol 08/26/22 07/17/24 History
sevelamer HCl 800 mg tablet 2,400 mg PO AC Kidney Disease 08/31/22 07/17/24 History
aspirin 81 mg capsule 81 mg PO DAILY Heart 03/11/23 07/17/24 History
Disease/Condition
cholecalciferol (vitamin D3) 25 25 mcg PO DAILY Supplement 12/09/23 07/17/24 History
mcg (1,000 unit) tablet (Vitamin
D3)
cyanocobalamin (vitamin B-12) 100 100 mcg PO DAILY Supplement 12/09/23 07/17/24 History
mcg tablet (Vitamin B-12)
metoprolol tartrate 25 mg tablet 25 mg PO BID #60 tabs 12/22/23 07/17/24 Rx
isosorbide mononitrate 60 mg 60 mg PO BID 07/17/24 07/17/24 History
tablet,extended release 24 hr
midodrine 10 mg tablet 10 mg PO MOWEFR 07/17/24 07/17/24 History
Review of Systems
-
History Source: Patient
All other systems: Negative unless noted
Cardiac: Chest Pain and Syncope
Abdomen/GI: Nausea and Vomiting
Neurological: Dizzy
Physical Exam
Vital Signs
Temp Pulse Resp BP Pulse Ox
99.9 F 95 18 97/56 98
07/18/24 07:29 07/18/24 06:31 07/18/24 07:29 07/18/24 06:31 07/18/24 07:29
Lab Results
07/18/24 04:04
07/18/24 04:04
Troponin I 5.140 ng/ml H* D 07/18/24 04:04
Physical Exam
General: Well Developed, Well Nourished and No Apparent Distress
HEENT: Normocephalic and Anicteric
Respiratory: Clear and Non Labored Respirations
Cardiac: Regular Rhythm and Murmur (II/ systolic murmur)
Musculoskeletal: No Edema
Skin: Warm and Dry
Neuro: AO x 3
Psych: Calm
Impression / Plan
-
Cardiac arrest with sustained ventricular tachycardia:
-continue amiodarone drip, which requires intensive monitoring
-cardiac cath today
-defibrillator tomorrow
-of note, bradycardia with 4.4 second pause also noted on loop recorder
-echo today
NSTEMI:
-trend trop to peak
-cath today
-ASA full dose given, continue daily ASA
-continue heparin drip, which requires intensive monitoring
-echo today
CAD with CABG and stenting:
-complex, severe coronary disease-cath 03/13/2023: Severe [place] CAD similar to the prior study with patent JUAN-LAD, SVG-diagonal, and LRA-RPDA bypass grafts. There is noncritical restenosis in the LAD distal to the TRACEY graft touchdown site.
This patient has had multiple layers of stent placed in the LAD distal to the TRACEY graft touchdown site- no stenting recommend at that time.
-continue ASA, statin, BB, and Imdur
ESRD on HD:
-nephrology is consulted
Data Reviewed
-
EKG: Tracing Personally Visualized and interpreted (ST with PVC's, bifasicular block)
Radiology: Report Reviewed by me (CXR 07/17/24: No active cardiopulmonary disease.)
Medical Tests (Nuc Med, Echo etc): Report Reviewed by me (Echo 07/16/23: Normal LV and RV size and function. Stage II diastolic dysfunction. Mild biatrial enlargement. Mild aortic stenosis, mean gradient across the valve is 11 mmHg.) and Other
(cardiac cath report as noted)
Labs: Labs Reviewed by me
[2024-07-18] MEDS: ASPIR LOW (ENTERIC COATED) 81 MG PO (09:29)
[2024-07-18] MEDS: IMDUR (EXTENDED RELEASE) 60 MG PO ×2 (09:30→21:33)
--- NOTE | 2024-07-18 10:01 | CM ---
Reviewed chart. Met with to review discharge plans. He states prior to admission he resides with is spouse in a two story home with one step to enter. He states prior to admission he heas a full flight of steps to get to bedroom. He
states he has a bathroom on each level. He states prior to admission he was independent with ambulation and adls. He states he does not have any DME in the home. He states he goes to outpatient dialysis at [facility] on Thursday,
Thursday and Thursday. He states he drives himself and has to be there at 10:00 a.m. He states he has a prescription plan. Will need to see his current functional level to see if he will have any skilled care needs. Medical work-up in progress.
The discharge plan is to return home with his spouse and outpatient dialysis when medically stable.
--- NOTE | 2024-07-18 10:18 | W.PN.HOSP.TC ---
Today's Communication/Plan
-
Continue IV heparin and IV amiodarone
Follow echo report
For cardiac catheterization today
Assessment / Plan
Assessment / Plan
Chest Pain with Elevated Troponin consistent with NSTEMI
-Asymptomatic today without any further chest pains
-Patient with known extensive coronary artery disease with CABG x5 and multiple stents-patient states last coronary stent in 2022. Currently on aspirin.
-Continue with heparin drip
-Continue aspirin
-Continue isosorbide
-For cardiac cath today
- ECHO being performed this morning
Probable cardiac arrest- he had a CPR done in his HD unit. He complains of sore chest from the CPR.
Slow ventricular tachycardia-Loop recorder shows slow ventricular tachycardia
-Continue amiodarone drip
-Continue metoprolol 12.5mg q6 if BP allows
-ICD need eval per cardiology
Chronic Diastolic Heart Failure
- Clincally compensated
-Continue fluid restriction
-Monitor Is&Os and Daily Weight
-Volume managed with dialysis
ESRD on HD
-Consulted Nephrology
-Continue sevelamer
Chronic Anemia / Thrombocytopenia
-Monitor counts closely while on heparin drip
DVT proph: Heparin drip
Code Status: Full Code
DW Nephro - HD tomorrow
DW son on phone and at bedside
Total time spent on today's encounter was 52 minutes which included time spent in counseling the patient/family regarding diagnosis and treatment plan as listed above, goals of care, and symptom management. Case was discussed with nursing staff,
specialists, and care coordinators/case management. All labs and imaging personally reviewed by me. Remainder the time spent in detailed review of previous records, lab data, imaging, and other medical provider documentation.
Anticipated Discharge: > 48 hours
Subjective/Interval History
-
Date of Service: July 18, 2024
No further chest pains.
Denies any lightheadedness, dizziness or wooziness.
Denies any palpitations.
Denies shortness of breath.
No nausea vomiting today.
Await cardiac catheterization, echo.
Objective Data
-
Labs:
Laboratory Results
07/18/24 07/18/24
04:04 10:50
WBC 9.1
Hgb 11.8 L
Hct 36.7 L
Plt Count 106 L
APTT 60.2 H Pending
Sodium 136
Potassium 4.5
Chloride 97 L
Carbon Dioxide 26
BUN 49 H
Creatinine 6.3 H*
Glucose 191 H
Calcium 9.1
Vital Signs:
Vital Signs
Temp Pulse Resp BP Pulse Ox
99.9 F 95 18 97/56 98
07/18/24 07:29 07/18/24 06:31 07/18/24 07:29 07/18/24 06:31 07/18/24 07:29
I&O
07/17/24 07/18/24 07/19/24
06:59 06:59 06:59
Intake Total 591.4 / 591.4
Balance 591.4 / 591.4
Review of Systems
-
Constitutional: Denies Fever
EENT: Denies Sore Throat
Respiratory: Denies Cough
Abdomen/GI: Denies Abdominal Pain
Physical Exam
-
General: No Apparent Distress
HEENT: Moist Mucous Membranes
Respiratory: Clear to Auscultation
Cardiac: S1/S2, Irregular Rhythm and Tachycardic
GI: Soft and Nontender
Neuro: AO x 3
Psych: Calm; Negative Confused
Data Reviewed
-
Labs: Labs Reviewed by me
[2024-07-18 11:33] LABS: APTT 44.3 Sec (23.4-35.0)
[2024-07-18] MEDS: LOPRESSOR 12.5 MG PO ×3 (12:13→23:27)
[2024-07-18] MEDS: RENVELA PO ×2 (12:13→12:14)
--- NOTE | 2024-07-18 12:18 | W.CON.NEPH ---
Consultation
-
Date/Time Consultation Requested: 07/17/242140
Date/Time Consultation Performed: 07/18/24 1145
Requesting Provider: Sarahi Brooke
Performing Provider: Aishwarya Ace
Reason for Consultation: ESRD
Medical History
-
Chief Complaint: syncope , cp
History of Present Illness:
74yo M with hx CAD with prior CABGx5 and stents last 2022 on chronic Plavix, ASA, Imdur, DCHF, HTN on BB, relative hypotension on Midodrine with HD, hypercholesterolemia on statin, diverticulosis, ESRD on HD MWF at [facility],
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
an episode of chest pain and loss of consciousness during HD. he reprots having some CP few days ago and took tylenol with relief. Patient was at dialysis yesterday when he started to developed chest pain, toward the end of his dialysis he became
unconscious. Apparently staff at the dialysis center couldn't find a pulse and started CPR. Patient quickly recovered and refused for EMS to be called, and his brought him to the emergency department for evaluation. His Implantable loop
recorder interrogation showed that the patient had about 1 hour of monomorphic VT, and then asystole during the event and he is planned to have cardiac catheterization today for increasing troponin and subsequent ICD implantation likely tomorrow per
cards. Nephrology asked to manage his HD needs. He currently offers mild CP in the center with out sob. no n/v. no abd pain.
Past Medical History
CAD status post CABG x 5 vessel/cardiac stent
chronic diastolic CHF
end-stage renal disease on dialysis Thursday
Chronic anemia/thrombocytopenia
HTN
HLD
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
gout
SHPTH
Hyperphosphatemia
prior PD stopped after peritonitis
Left UE AVF
Past Surgical History: Other (CAD status post CABG x 5 vessel/cardiac stent Appendectomy Colonoscopy May 2022 with benign polypectomy x 2)
Social History
Tobacco: Non-Smoker
Alcohol: None
Personal:
Living: With Family
Family History
Family History: Not Pertinent
Allergies / Home Medications
Allergy/AdvReac Type Severity Reaction Status Date / Time
No Known Allergies Allergy Verified 12/18/23 12:47
�Medication �Instructions �Recorded �Confirmed �Type
allopurinol 100 mg tablet 100 mg PO HS Gout 08/26/22 07/17/24 History
atorvastatin 40 mg tablet 40 mg PO HS High cholesterol 08/26/22 07/17/24 History
sevelamer HCl 800 mg tablet 2,400 mg PO AC Kidney Disease 08/31/22 07/17/24 History
aspirin 81 mg capsule 81 mg PO DAILY Heart 03/11/23 07/17/24 History
Disease/Condition
cholecalciferol (vitamin D3) 25 25 mcg PO DAILY Supplement 12/09/23 07/17/24 History
mcg (1,000 unit) tablet (Vitamin
D3)
cyanocobalamin (vitamin B-12) 100 100 mcg PO DAILY Supplement 12/09/23 07/17/24 History
mcg tablet (Vitamin B-12)
isosorbide mononitrate 60 mg 60 mg PO BID Blood Pressure 07/17/24 07/17/24 History
tablet,extended release 24 hr
midodrine 10 mg tablet 10 mg PO MOWEFR Blood Pressure 07/17/24 07/17/24 History
metoprolol tartrate 25 mg tablet 25 mg PO BID Blood Pressure 07/18/24 07/17/24 History
Review of Systems
-
all complete 12 point ROS have been inquired and found negative other than stated in HPI
Physical Exam
Vital Signs
Vital Signs
Temp Pulse Resp BP Pulse Ox
98.3 F 95 18 97/56 97
07/18/24 11:23 07/18/24 06:31 07/18/24 11:23 07/18/24 06:31 07/18/24 11:23
Lab Results
WBC 9.1 10^3/uL (4.8-10.8) 07/18/24 04:04
RBC 3.66 10^6/uL (4.70-6.10) L 07/18/24 04:04
Hgb 11.8 g/dL (13.0-18.0) L 07/18/24 04:04
Hct 36.7 % (39.0-52.0) L 07/18/24 04:04
Plt Count 106 10^3/uL (130-400) L 07/18/24 04:04
Sodium 136 mmol/L (135-145) 07/18/24 04:04
Potassium 4.5 mmol/L (3.5-5.1) 07/18/24 04:04
Chloride 97 mmol/L (98-107) L 07/18/24 04:04
Carbon Dioxide 26 mmol/L (22-30) 07/18/24 04:04
BUN 49 mg/dl (9-20) H 07/18/24 04:04
Creatinine 6.3 mg/dL (0.7-1.3) H* 07/18/24 04:04
eGFR 8.68 07/18/24 04:04
Glucose 191 mg/dl (70-99) H 07/18/24 04:04
Calcium 9.1 mg/dl (8.4-10.2) 07/18/24 04:04
Albumin 3.9 g/dl (3.5-5.0) 07/17/24 18:35
CXR:
IMPRESSION:
No active cardiopulmonary disease.
Physical Exam
General: Awake, Alert, Oriented, AOx3, No Distress and Nontoxic
HEENT: EOMI, Anicteric, Facial Symmetry and Neck Supple
Respiratory: Clear, Normal Excursion and Nonlabored Respirations
Cardiac: S1/S2 and Regular Rate/Rhythm
Breast: Deferred by me
Abdomen: Soft, Nontender and Nondistended
Musculoskeletal: No Cyanosis and No Edema
Skin: No Rash
Neuro: Nonfocal/Grossly Intact
Psych: Mood/afflect pleasant and Appropriate
Vascular Access: AVF
Data Reviewed
-
Radiology: Report Reviewed by me
Labs: Labs Reviewed by me and Discussed with Patient
Assessment/Plan
-
IMP:
Chest Pain with Elevated Troponin consistent with NSTEMI
Probable cardiac arrest- he had a CPR done in his HD unit
Slow ventricular tachycardia noted Loop recorder
Chronic Diastolic Heart Failure
ESRD on dialysis Thursday -[facility] [phone]
Chr anemia
Chronic thrombocytopenia
HTN�benign
CAD/CABG x 5 vessel
Cardiac stent July 2022
HLD
Hx visual loss left eye due to vitreous hemorrhage March 2023
Gout
Plan:
A/w possible card arrest and CP-concern of NSTEMI
plan LHC today and ICD tomorrow
last HD yesterday , metabolic parameters acceptable
HD plan tomorrow , off schedule for holiday
BP soft, cont midodrine with HD
on IV heparin and in Amio
renal diet and FR
d/wpt and nursing
--- NOTE | 2024-07-18 12:31 | PTCARENOTE ---
Pt states that he has 'chest pain' when he touches his chest. aware. Of note, pt had CPR on 07/17/24. Will monitor.
--- NOTE | 2024-07-18 14:57 | ITS.CL.CATH ---
Broadcast Correspondent - Catheterization
Cardiac Catheterization
Procedure Report:
CARDIAC CATHETERIZATION REPORT
Date of Procedure: 07/18/2024
Referring: Rylan Perez M.D.
INDICATION: VT arrest, known coronary artery disease.
PROCEDURE:
1. Left heart catheterization.
2. Coronary angiography.
3. Bypass angiography.
ACCESS:
6 [place] right common femoral artery using a modified Seldinger technique with a micropuncture kit under ultrasound guidance.
CATHETERS:
1. 5 [place] JL 4.
2. 5 [place] JR4.
3. 5 [place] TRACEY.
4. 5 [place] multipurpose.
HEMODYNAMIC DATA
Weight (kg): 79.0
AO (s/d/x, mmHg): 114/41/67
LV (s/x mmHg): 120/27
LEFT VENTRICULOGRAPHY: Not performed.
CORONARY ANGIOGRAPHY
Dominance: Right.
Left Main: Severely calcified and diffusely diseased vessel.
LAD: Normal size vessel giving rise to 1 diagonal. The LAD is occluded at its origin. There is a JUAN graft to the mid vessel with several layers of stent beyond the anastomosis of the JUAN graft. The vessel is chronically totally occluded
after the JUAN graft.
Ramus: Congenitally absent.
Circumflex: Nondominant vessel giving rise to 2 obtuse marginals. The left circumflex is occluded at its origin. OM1 and OM 2 are supplied by a patent sequential vein graft.
RCA: Normal size, dominant vessel. The vessel is chronically totally occluded in its midportion. The RPDA is supplied by a patent left radial artery graft. There is a 70% lesion in the proximal portion of the RPDA followed by a 40-50% lesion
in the mid vessel. The vessel itself is small, generally <2 mm, unamenable to intervention. The coronary disease appears to have modestly progressed from prior cardiac catheterization.
BYPASS GRAFT ANGIOGRAPHY
JUAN to LAD: Normal size graft with end-to-side anastomosis to the mid LAD. There is no evidence of stenosis or graft degeneration. The LAD distal to the anastomosis is chronically totally occluded. The JUAN backfills some of the mid LAD and
septal perforators.
LRA to RPDA: Normal size graft with end-to-side anastomosis to the distal RCA/RPDA with a horizontal to downward origin, best cannulated with a multipurpose catheter. There is no evidence of stenosis or graft degeneration.
SVG to D1: Normal size graft with end-to-side anastomosis to the proximal margin of the first diagonal. The first diagonal is occluded immediately proximal to the SVG anastomosis. There is a 50% lesion in the distal aspect of D1.
SVG to OM1 to OM2: Normal size graft with [id number] anastomosis to OM 1 and end-to-side anastomosis to OM 2. OM1 and OM 2 are chronically totally occluded immediately proximal to the graft anastomosis. There is a 50% lesion in OM 2,
immediately after the graft anastomosis. This is unchanged from prior cardiac catheterization.
INTERVENTION(S)
None.
Closure Device: 6 [place] Angio-Seal.
Radiation (mGy): 456.91
DAP (cm2.Gy): 42.3233
Fluoroscopy time (minutes): 7.6
Sedation time (minutes): 43
CONCLUSIONS
1. Right dominant circulation with chronic total occlusion of the ostial LAD, the origin of the diagonal, the origin of the circumflex to the origins of OM1 and OM 2 as well as the mid RPDA, status post 5-vessel bypass (patent JUAN to LAD with SOCIAL AND HUMAN SERVICES ASSISTANT
ISR distal to the JUAN anastomosis, backfilling the mid LAD septal sagger preparer, patent SVG to D1, patent sequential SVG to OM1-OM2 with a 50% lesion in OM 2 immediately after the graft anastomosis and a patent LRA to RPDA) with a 70% lesion in the
proximal RPDA followed by a 40-50% lesion in the mid RPDA. The distal RCA disease appears modestly progressed from prior cardiac catheterization but the vessel is <2 mm in diameter, unamenable to intervention.
2. Severely elevated filling pressures (LVEDP = 27 mmHg at 79.0 kg).
RECOMMENDATIONS:
1. Expectant management after cardiac catheterization via right common femoral approach.
2. Limited weight bearing for one week.
3. Volume management through dialysis/ultrafiltration.
4. Guideline directed medical therapy as hemodynamics will tolerate.
5. No viable option for revascularization.
6. Agree with secondary prevention ICD placement.
Copy to: Rylan Perez M.D., Lisa Torres M.D.
Brendan Barrios DO, FACC, FACP
--- NOTE | 2024-07-18 15:13 | PTCARENOTE ---
Received pt post cath. Right groin site w/ angioseal and dressing intact. Amiodarone drip infusing at 16.7 ml/hr. VSS. Pt denies any discomfort from cath procedure. Orders noted. Will monitor.
[2024-07-18] MEDS: VITAMIN D3 (cholecalciferol) 25 MCG PO (15:47)
[2024-07-18] MEDS: RENVELA 2400 MG PO (15:47)
[2024-07-18] MEDS: VITAMIN B-12 100 MCG PO (15:47)
--- NOTE | 2024-07-18 21:00 | PTCARENOTE ---
Patient received at change of shift. Right groin puncture site with gauze and tegaderm C/D/I. Bilateral pedal pulses palpable. Amiodarone gtt infusing. Assessment ongoing.
[2024-07-18] MEDS: LIPITOR 40 MG PO (22:53)
[2024-07-18] MEDS: ZYLOPRIM 100 MG PO (22:53)
[2024-07-18] MEDS: PACERONE 400 MG PO (22:53)
[2024-07-18] MEDS: TYLENOL 650 MG PO (22:54)
[2024-07-19] VITALS (27 sets, daily range): BP systolic 87–136; BP diastolic 45–94; BMI 27.1
--- NOTE | 2024-07-19 01:29 | PTCARENOTE ---
Patient in sinus rhythm with PVC's and BBB on property assessment monitor. Patient states he only has pain if someone presses on his chest but is currently without pain. Amiodarone gtt discontinued per order, PO amiodarone given, see SEP. Patient denies
nausea/vomiting. PO acetaminophen given for elevated temperature, see SEP. Call ernst within reach. Plan of care discussed with patient. Care ongoing.
--- NOTE | 2024-07-19 04:15 | PTCARENOTE ---
Patient refusing to have AM labs drawn this morning. Will not allow RN to draw labs at this time.
--- NOTE | 2024-07-19 05:07 | PTCARENOTE ---
Patient clipped and first set of CHG wipes completed. Patient allowed gown to be changed but refused full linen change. NPO status reinforced with patient as he asked for a cup of ice water. Plan of care discussed with patient.
[2024-07-19 05:41] LABS: Blood Urea Nitrogen 73 mg/dl (9-20); Calcium 9.3 mg/dl (8.4-10.2); Carbon Dioxide 18 mmol/L (22-30); Chloride 97 mmol/L (98-107); Estimated Creatinine Clearance 7 ml/min; Glucose 92 mg/dl (70-99); Potassium 5.3 mmol/L (3.5-5.1); Sodium 134 mmol/L (135-145); eGFR 6.06
[2024-07-19] MEDS: LOPRESSOR PO ×2 (06:03→12:00)
[2024-07-19 07:22] LABS: Hematocrit 35.9 % (39.0-52.0); Hemoglobin 11.7 g/dL (13.0-18.0); Mean Corp Hgb Conc. 32.6 g/dL (33.0-37.0); Mean Corpuscular Hgb 32.2 pg (27.0-31.0); Mean Corpuscular Volume 98.9 fL (80.0-94.0); Red Blood Cell Count 3.63 10^6/uL (4.70-6.10); Red Cell Dist. Width 13.6 % (11.5-14.5); White Blood Cell Count 8.9 10^3/uL (4.8-10.8)
--- NOTE | 2024-07-19 08:36 | W.PN.CD ---
Today's Communication / Plan
-
- dual chamber iCD today
Impression / Plan
-
Cardiac arrest with sustained ventricular tachycardia:
-[facility] - 07/18/24 :
-Right dominant circulation with chronic total occlusion of the ostial LAD, the origin of the diagonal, the origin of the circumflex to the origins of OM1 and OM 2 as well as the mid RPDA, status post 5-vessel bypass (patent JUAN to LAD with ASSOCIATE DIRECTOR QA
ISR distal to the JUAN anastomosis, backfilling the mid LAD septal costume draper, patent SVG to D1, patent sequential SVG to OM1-OM2 with a 50% lesion in OM 2 immediately after the graft anastomosis and a patent LRA to RPDA) with a 70% lesion in the
proximal RPDA followed by a 40-50% lesion in the mid RPDA.
- Severely elevated filling pressures (LVEDP = 27 mmHg at 79.0 kg)
-On amiodarone - 400 mg BID and Metoprolol 12.5 mg q6h
-ICD defibrillator today
-of note, bradycardia with 4.4 second pause also noted on loop recorder
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
NSTEMI:
-trend trop to peak
-cath today
-ASA full dose given, continue daily ASA
-continue heparin drip, which requires intensive monitoring
-echo 07/18/24: LVEF 45% - Hypokinesis of the basal to apical inferior wall and basal to mid septal león.
CAD with CABG and stenting:
-complex, severe coronary disease-
- Previous cath 03/13/2023: Severe council CAD similar to the prior study with patent JUAN-LAD, SVG-diagonal, and LRA-RPDA bypass grafts. There is noncritical restenosis in the LAD distal to the TRACEY graft touchdown site. This patient has had
multiple layers of stent placed in the LAD distal to the TRACEY graft touchdown site- no stenting recommend at that time.
-continue ASA, statin, BB, and Imdur
ESRD on HD:
-nephrology is following
Physical Exam
Vital Signs/Labs
Vital Signs
Temp Pulse Resp BP Pulse Ox
99.1 F 89 14 96/45 95
07/19/24 04:00 07/19/24 06:03 07/19/24 04:00 07/19/24 06:03 07/19/24 04:00
07/18/24 07/19/24 07/20/24
06:59 06:59 06:59
Actual Weight 79 kg 76 kg
07/19/24 04:52
07/19/24 04:52
APTT Cancelled 07/18/24 17:45
Magnesium 2.2 mg/dl (1.6-2.3) 07/17/24 18:35
LAB Results
07/17/24 07/17/24 07/17/24
17:19 17:56 22:41
Troponin I Cancelled 0.245 H* 1.390 H* D
07/18/24 07/18/24 07/18/24
04:04 11:07 17:03
Troponin I 5.140 H* D 10.100 H* D 11.400 H*
Physical Exam
Constitutional: No acute distress and Comfortable
EENT: Anicteric and Moist mucous membranes
Cardiovascular: Rhythm & rate is regular, Pedal edema is absent, JVD pressure is normal and Systolic murmur absent
Respiratory: Respiratory effort normal, Lungs clear to auscul., Wheeze Absent and Crackles Absent
GI: Soft, Non tender and Normal bowel sounds
Neuro/Psych: Alert, Oriented, AO x 3 and Motor deficits absent
Other: Cath Site and Cardiac Device Site
Data Reviewed
-
Date of Service: July 19, 2024
Medical Decision Making: Reviewed Test Results, Independent Historian Assessment, Test Interpretation and Review of Case with other Provider
EKG: Tracing Personally Visualized and interpreted
Echo: Tracing Personally Visualized and interpreted
X-Ray/CT/US/MRI/NUC/PET: Image Personally Visualized and interpreted
Labs: Labs Reviewed by me
Old Records: Reviewed
[2024-07-19] MEDS: RENVELA PO ×2 (08:59→11:30)
[2024-07-19] MEDS: IMDUR (EXTENDED RELEASE) PO ×2 (08:59→23:10)
[2024-07-19] MEDS: PACERONE 400 MG PO ×2 (09:00→21:11)
[2024-07-19] MEDS: FLUSH (NSS) 1 FLUSH IV (09:01)
--- NOTE | 2024-07-19 09:50 | PTCARENOTE ---
Received patient this morning resting in bed, NPO x meds for ICD placement today and HD. Patient noted to have a temp of 100.5, asymptomatic, tt to Dr. Osman to notify him and he will come see the patient shortly.
[2024-07-19 10:12] LABS: % Basophils 0.3 % (0-2); % Eosinophils 0.9 % (0-6); % Immature Granulocytes 0.9 % (0-0.5); % Lymphocytes 14.3 % (20.5-51.1); % Neutrophils 73.6 % (42.2-75.2); Absolute Eosinophils 0.1 10^3/uL (0-0.7); Absolute Immature Granulocytes 0.1 10^3/uL (0-0.05); Absolute Lymphocytes 1.3 10^3/uL (1.2-3.4); Absolute Monocytes 0.9 10^3/uL (0.1-0.6); Absolute Neutrophils 6.5 10^3/uL (1.4-6.5); Nucleated Red Blood Cells % 0 % (-)
--- NOTE | 2024-07-19 11:54 | CM ---
Reviewed chart. Met with Mr. Bower to review discharge plans. He states his procedure has been postponed due to temperature. Prior to admission he resides with his spouse in a two story home with one step to enter. He has a full bathroom on
each floor. Prior to admission he was independent with ambulation and adls. He does not have any DME in the home. He goes to outpatient dialysis at [facility] on Thursday, Thursday and Thursday. at 10:[address] himself to
outpatient dialysis .He has a prescription plan. Will need to see his current functional level to see if he will have any skilled care needs. Medical work-up in progress. The discharge plan is to return home with his spouse and resumption of
outpatient dialysis when medically stable.
--- NOTE | 2024-07-19 12:01 | W.PN.HOSP.TC ---
Today's Communication/Plan
-
Fever evaluation as above
Holding ICD placement today.
Hemodialysis today
Assessment / Plan
Assessment / Plan
Chest Pain with Elevated Troponin consistent with NSTEMI
-Remains Asymptomatic without any further chest pains
-Patient with known extensive coronary artery disease with CABG x5 and multiple stents-patient states last coronary stent in 2022. Currently on aspirin.
-Continue with heparin drip
-Continue aspirin
-Continue isosorbide
-s/p cardiac cath 07/18 at CAD but no viable options for revascularization. Low EF noted.
- ECHO-drop in EF from 60 to 65% to 40 to 45% noted. Inferior wall is more hypokinetic compared to before. Degree of mitral regurgitation has increased from mild to moderate. Gradient across the aortic valve is stable.
Probable cardiac arrest- he had a CPR done in his HD unit. He complains of sore chest from the CPR. Chest x-ray on admission without any acute cardiopulmonary abnormalities
Slow ventricular tachycardia-Loop recorder shows slow ventricular tachycardia
-Continue amiodarone drip
-Continue metoprolol 12.5mg q6 if BP allows
-ICD after fever evaluation is complete
Fever - 100.5 without any focal infective symptoms or signs.
Check COVID, influenza, urinalysis with culture, repeat chest x-ray, and blood cultures.
Hold on antibiotics.
Discussed with cardiology for event of hold on ICD evaluation for today.
Chronic Diastolic Heart Failure
- Clincally compensated
- Continue fluid restriction
-Monitor Is&Os and Daily Weight
-Volume managed with dialysis
ESRD on HD
-Consulted Nephrology
-Continue sevelamer
Chronic Anemia / Thrombocytopenia
-Monitor counts closely while on heparin drip
DVT proph: Heparin drip
Code Status: Full Code
DW cards and RN
Total time spent on today's encounter was 52 minutes which included time spent in counseling the patient/family regarding diagnosis and treatment plan as listed above, goals of care, and symptom management. Case was discussed with nursing staff,
specialists, and care coordinators/case management. All labs and imaging personally reviewed by me. Remainder the time spent in detailed review of previous records, lab data, imaging, and other medical provider documentation.
Anticipated Discharge: > 48 hours
Subjective/Interval History
-
Date of Service: July 19, 2024
No further chest pain or passing out spells.
Denies any shortness of breath, palpitations or dizziness.
2 spikes of fever of 100.5 noted.
Patient denies any sore throat, cough, shortness of breath. Sore from CPR in anterior chest.
No nausea vomiting or diarrhea. No abdominal pain.
Makes some urine but denies any dysuria or frequency. Strong odor of urine noted by the RN.
No recent infections hx.
Objective Data
-
Labs:
Laboratory Results
07/19/24
04:52
WBC 8.9
Hgb 11.7 L
Hct 35.9 L
Plt Count
Sodium 134 L
Potassium 5.3 H
Chloride 97 L
Carbon Dioxide 18 L
BUN 73 H
Creatinine 8.5 H*
Glucose 92
Calcium 9.3
Vital Signs:
Vital Signs
Temp Pulse Resp BP Pulse Ox
98.8 F 88 18 116/53 98
07/19/24 11:39 07/19/24 09:00 07/19/24 11:39 07/19/24 09:00 07/19/24 11:39
I&O
07/18/24 07/19/24 07/20/24
06:59 06:59 06:59
Intake Total 591.4 / 591.4 698.15 / 698.15
Balance 591.4 / 591.4 698.15 / 698.15
Review of Systems
-
Constitutional: Denies Chills
Respiratory: Denies Cough
Musculoskeletal: Denies Joint Pain
Neuro: Denies Headache
Physical Exam
-
General: No Apparent Distress
Respiratory: Clear to Auscultation, Non Labored Respirations and Other (very tender over lower sternal area); Negative Wheezes, Crackles or Accessory Resp Muscle Use
Cardiac: Regular Rhythm and S1/S2
GI: Soft, Nontender, Nondistended and Normal Bowel Sounds
Neuro: AO x 3
Psych: Calm; Negative Confused
Data Reviewed
-
Labs: Labs Reviewed by me
--- NOTE | 2024-07-19 14:57 | W.PN.NEPH.HD ---
Assessment
-
pt seen during HD
BP soft end, UF as much as possible
LHC noted, high LVEDP 27, CAD not amenable for revascularization
likely challenge EDW as allowed
ICD on hold for low grade fever today, w/u per primary
AVF functions well
strict FR 33 ounces/day
Progress Note - Hemodialysis
-
Date of Service: July 19, 2024
Duration: 30 minutes and 3 hours
Potassium Bath: 2
Calcium Bath: 2.5
Opti-Dialyzer: 160
Ultrafiltration: Other (1.5-2kg)
Blood Flow: 400
Dialysate Flow: 600
Heparin: no
EPO: no
[2024-07-19] MEDS: VITAMIN B-12 100 MCG PO (15:39)
[2024-07-19] MEDS: LOPRESSOR 12.5 MG PO (15:40)
[2024-07-19] MEDS: VITAMIN D3 (cholecalciferol) 25 MCG PO (15:40)
[2024-07-19] MEDS: ASPIR LOW (ENTERIC COATED) 81 MG PO (15:41)
[2024-07-19] MEDS: RENVELA 2400 MG PO (15:41)
[2024-07-19 16:34] LABS: COVID-19 Antigen Negative (Negative)
--- NOTE | 2024-07-19 17:14 | PTCARENOTE ---
ICD placement cancelled due to fever this AM, no fevers since this morning. Patient completed HD now, BP's low initially and then towards the end of HD, HR's in the 120's and irregular. Patient was asymptomatic, EKG confirmed SR with frequent PVC's.
Family at the bedside, patient given 1800 dose of metoprolol early since dose this afternoon was held. TT to Dr. Osman to update on the above and also requested that he telephone the patient's family who had multiple questions. Dr. Osman telephoned
the patient's daughter and answered questions for them. Blood cultures done and flu/covid swabs sent.
[2024-07-19] MEDS: ZYLOPRIM 100 MG PO (21:11)
[2024-07-19] MEDS: ProAmatine 5 MG PO (21:11)
[2024-07-19] MEDS: LIPITOR 40 MG PO (21:11)
--- NOTE | 2024-07-19 21:28 | PTCARENOTE ---
Patient noted to be hypotensive SBP 80-90s. TOWEL HEMMER notified. Received orders for 5 Midodrine. Will hold imdur for now reassess BP following midodrine administration. Patient asymptomatic for low blood pressure.
[2024-07-20] VITALS (12 sets, daily range): BP systolic 82–114; BP diastolic 44–63; BMI 26.2
[2024-07-20] MEDS: LOPRESSOR PO ×3 (00:27→11:50)
[2024-07-20] MEDS: TYLENOL 650 MG PO (03:38)
[2024-07-20 04:13] LABS: Hematocrit 33.6 % (39.0-52.0); Hemoglobin 11.1 g/dL (13.0-18.0); Mean Corpuscular Hgb 32.3 pg (27.0-31.0); Mean Corpuscular Volume 97.7 fL (80.0-94.0); Mean Platelet Volume 12.5 fL (7.4-10.4); Platelet Count 119 10^3/uL (130-400); Red Blood Cell Count 3.44 10^6/uL (4.70-6.10); Red Cell Dist. Width 13.3 % (11.5-14.5)
[2024-07-20] MEDS: VITAMIN B-12 100 MCG PO (08:28)
[2024-07-20] MEDS: VITAMIN D3 (cholecalciferol) 25 MCG PO (08:28)
[2024-07-20] MEDS: ASPIR LOW (ENTERIC COATED) 81 MG PO (08:28)
[2024-07-20] MEDS: RENVELA 2400 MG PO ×3 (08:28→18:26)
[2024-07-20] MEDS: IMDUR (EXTENDED RELEASE) PO ×2 (08:28→11:51)
[2024-07-20] MEDS: PACERONE 400 MG PO ×2 (08:28→19:37)
[2024-07-20] MEDS: STERILE WATER FOR INJECTION 10 ML IV (09:08)
[2024-07-20] MEDS: ROCEPHIN 1000 MG IV (09:09)
--- NOTE | 2024-07-20 09:21 | W.PN.CD ---
Today's Communication / Plan
-
- Likely ICD tomorrow.
Impression / Plan
-
Cardiac arrest with sustained ventricular tachycardia:
-[facility] - 07/18/24 :
-Right dominant circulation with chronic total occlusion of the ostial LAD, the origin of the diagonal, the origin of the circumflex to the origins of OM1 and OM 2 as well as the mid RPDA, status post 5-vessel bypass (patent JUAN to LAD with WALLCOVERING HANGER
ISR distal to the JUAN anastomosis, backfilling the mid LAD septal registered nurse float pool, patent SVG to D1, patent sequential SVG to OM1-OM2 with a 50% lesion in OM 2 immediately after the graft anastomosis and a patent LRA to RPDA) with a 70% lesion in the
proximal RPDA followed by a 40-50% lesion in the mid RPDA.
- Severely elevated filling pressures (LVEDP = 27 mmHg at 79.0 kg)
-On amiodarone - 400 mg BID and Metoprolol 12.5 mg q6h
-ICD defibrillator plan for tomorrow if remains afebrile for 24 hours
-last fever - 07/19 at 7:45 pm - 101.2F
-of note, bradycardia with 4.4 second pause also noted on loop recorder
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
NSTEMI:
-cath 07/18 as noted above
-Trop leak is likely due to cardiac arrest and CPR and shock.
-Peaked trop 11.4. last 6.5
-ASA full dose given, continue daily ASA
-Off Heparin drip now.
-echo 07/18/24: LVEF 45% - Hypokinesis of the basal to apical inferior wall and basal to mid septal león.
Fever
- Recurrent
- Managed by Primary team
- Appears to have lymphocytosis - possible viral
CAD with CABG and stenting:
-complex, severe coronary disease-
- Previous cath 03/13/2023: Severe council CAD similar to the prior study with patent JUAN-LAD, SVG-diagonal, and LRA-RPDA bypass grafts. There is noncritical restenosis in the LAD distal to the TRACEY graft touchdown site. This patient has had
multiple layers of stent placed in the LAD distal to the TRACEY graft touchdown site- no stenting recommend at that time.
-continue ASA, statin, BB, and Imdur
ESRD on HD:
-nephrology is following
Physical Exam
Vital Signs/Labs
Vital Signs
Temp Pulse Resp BP Pulse Ox
97.7 F 70 18 95/46 95
07/20/24 07:22 07/20/24 06:25 07/20/24 07:22 07/20/24 06:25 07/20/24 07:22
07/19/24 07/20/24 07/21/24
06:59 06:59 06:59
Actual Weight 76 kg 73.5 kg
07/20/24 03:48
07/19/24 04:52
APTT Cancelled 07/18/24 17:45
Magnesium 2.2 mg/dl (1.6-2.3) 07/17/24 18:35
LAB Results
07/17/24 07/17/24 07/17/24
17:19 17:56 22:41
Troponin I Cancelled 0.245 H* 1.390 H* D
07/18/24 07/18/24 07/18/24
04:04 11:07 17:03
Troponin I 5.140 H* D 10.100 H* D 11.400 H*
07/19/24
18:59
Troponin I 6.580 H*
Physical Exam
Constitutional: No acute distress and Comfortable
EENT: Anicteric and Moist mucous membranes
Cardiovascular: Pedal edema is absent, JVD pressure is normal and Rhythm/rate is irregular
Respiratory: Respiratory effort normal, Wheeze Absent and Crackles Absent
GI: Soft, Non tender and Normal bowel sounds
Neuro/Psych: Alert, Oriented and AO x 3
Data Reviewed
-
Date of Service: July 20, 2024
Medical Decision Making: Reviewed Test Results and Test Interpretation
EKG: Tracing Personally Visualized and interpreted
Echo: Report Reviewed by me
Labs: Labs Reviewed by me
Old Records: Reviewed
--- NOTE | 2024-07-20 10:16 | W.PN.HOSP.TC ---
Addendum entered and electronically signed by Herman Osman MD 07/20/24 11:14:
Correction
UA result is from last visit. Await UA from this visit.
I will hold on abx for now till UA and cx is back.
Original Note:
Today's Communication/Plan
-
Start on empirical ceftriaxone. Follow urine culture
Follow blood cultures and chest x-ray
Continue with current cardiac meds. Follow telemetry.
Assessment / Plan
Assessment / Plan
Chest Pain with Elevated Troponin consistent with NSTEMI
-Remains Asymptomatic without any further chest pains
-Patient with known extensive coronary artery disease with CABG x5 and multiple stents-patient states last coronary stent in 2022. Currently on aspirin.
-Continue with heparin drip
-Continue aspirin
-Continue isosorbide
-s/p cardiac cath 07/18 at CAD but no viable options for revascularization. Low EF noted.
- ECHO-drop in EF from 60 to 65% to 40 to 45% noted. Inferior wall is more hypokinetic compared to before. Degree of mitral regurgitation has increased from mild to moderate. Gradient across the aortic valve is stable.
Probable cardiac arrest- he had a CPR done in his HD unit. He complains of sore chest from the CPR. Chest x-ray on admission without any acute cardiopulmonary abnormalities
Slow ventricular tachycardia-Loop recorder shows slow ventricular tachycardia
-Continue amiodarone drip
-Continue metoprolol 12.5mg q6 if BP allows
-ICD after fever evaluation is complete
Fever - without any focal infective symptoms or signs.
Neg COVID, influenza
urinalysis significant pyuria but asymptomatic. He had a strong odor though. Start on empirical ceftriaxone pending urine culture data. Blood cultures are pending. Repeat chest x-ray pending.
Consult ID.
Hold on ICD.
Chronic Diastolic Heart Failure
- Clincally compensated
- Continue fluid restriction
-Monitor Is&Os and Daily Weight
-Volume managed with dialysis
ESRD on HD
- Nephrology following
-Continue sevelamer
Chronic Anemia / Thrombocytopenia
-Monitor counts closely while on heparin drip
DVT proph: Heparin drip
Code Status: Full Code
Anticipated Discharge: > 48 hours
Subjective/Interval History
-
Date of Service: July 20, 2024
Patient is the spike of fever last evening. Denies any chills.
Voicing no specific complaints. Urinalysis is positive but denies any dysuria or frequency. His urine had strong odor as noticed by RN yesterday.
Denies any abdominal pain. Denies any nausea vomiting. No diarrhea.
No sore throat, cough or shortness of breath. Chest pain from CPR.
Objective Data
-
Labs:
Laboratory Results
07/20/24
03:48
WBC 7.0
Hgb 11.1 L
Hct 33.6 L
Plt Count 119 L
Vital Signs:
Vital Signs
Temp Pulse Resp BP Pulse Ox
97.7 F 70 18 95/46 95
07/20/24 07:22 07/20/24 06:25 07/20/24 07:22 07/20/24 06:25 07/20/24 07:22
I&O
07/19/24 07/20/24 07/21/24
06:59 06:59 06:59
Intake Total 698.15 / 698.15 290 / 290
Balance 698.15 / 698.15 290 / 290
Review of Systems
-
Neuro: Denies Dizzy or Headache
Physical Exam
-
General: Comfortable
Respiratory: Clear to Auscultation and Non Labored Respirations; Negative Accessory Resp Muscle Use
Cardiac: Regular Rhythm and S1/S2
GI: Soft and Nontender
Neuro: AO x 3
Psych: Calm
Data Reviewed
-
Labs: Labs Reviewed by me
--- NOTE | 2024-07-20 11:01 | CON.ID ---
Consultation
-
Date/Time Consultation Requested: 07/20/2024 0753
Date/Time Consultation Performed: 07/20/2024 1043
Requesting Provider: Dr. Osman
Performing Provider: Dr. Garcia
Reason for Consultation: Fever
Chief Complaint / Past History
History of Present Illness
Víctor Bower is a 74-year-old man being evaluated at the request of Dr. Osman in regards to fever. History is obtained from chart review, along with patient interview.
The patient has a significant past medical history of ESRD, and has been on hemodialysis for the past 7-1/2 years. Yesterday, while on hemodialysis he became unresponsive, and CPR was initiated. During CPR he had spontaneous return of circulation
and was transported emergently to the ER at [facility]. According to further history he did have an episode of chest pain, but he reported it was not like his usual chest discomfort.
Since admission he has been evaluated by Cardiology, and felt to have cardiac arrest with sustained ventricular tachycardia, along with NSTEMI. A dual-chamber ICD was planned for yesterday, but patient developed fevers, and Infectious Diseases is
asked to comment upon need for further antibiotics.
At this time he denies any cough or congestion. He does note some chest discomfort related to prior CPR. He otherwise feels well and denies any other pain. He denies any history of dysuria and reports only a few drops of urine was produced at a
time. He denies any current shortness of breath.
Past History
Additional Past Medical History:
CAD
GERD
Dyslipidemia
ESRD�HD
Gout
Additional Past Surgical History:
Appendectomy
PCI with stenting
Prior CABG
Allergy History:
No Known Allergies Allergy (Verified 12/18/23 12:47)
Medications Reviewed: Yes
Current Antibiotics:
Ceftriaxone 1 g IV every 24 hours
Social History
Tobacco: Non-Smoker
Alcohol: None
Drug: None
Personal:
Living: With Family
Employment: Not Employed
Family History
Family History: Not Pertinent
Review of Systems
Vital Signs
Temp Pulse Resp BP Pulse Ox
97.7 F 70 18 95/46 95
07/20/24 07:22 07/20/24 06:25 07/20/24 07:22 07/20/24 06:25 07/20/24 07:22
Physical Exam
Physical Exam
Constitutional: No Acute Distress, Comfortable and Non-toxic
Head: Normocephalic
Eyes: Pupils Equal, Pupils Round, No Conjunctival Hemorrhage and Sclera Anicteric
Oral: No Thrush and No Ulcers
Cardiovascular: Irregular Rate, S1/S2 and Murmur; Negative S3/S4
Pulmonary: Clear and Non Labored; Negative Wheezes, Rales or Rhonchi
Gastrointestinal: Soft, Non Tender, Non Distended and Normal Bowel Sounds
Extremities: Negative Edema, Cyanosis or Erythema
Neurological: Awake and Alert
Psychological: Calm
.
Lab / Diagnostic Study Results
07/20/24 03:48
07/19/24 04:52
Abs Immat Gran (auto) 0.1 10^3/uL (0-0.05) H 07/19/24 04:52
Absolute Neuts (auto) 6.5 10^3/uL (1.4-6.5) 07/19/24 04:52
Absolute Lymphs (auto) 1.3 10^3/uL (1.2-3.4) 07/19/24 04:52
Absolute Monos (auto) 0.9 10^3/uL (0.1-0.6) H 07/19/24 04:52
Absolute Basos (auto) 0.0 10^3/uL (0-0.2) 07/19/24 04:52
Total Counted Cancelled 07/19/24 04:52
Immature Gran % 0.9 % (0-0.5) H 07/19/24 04:52
Neutrophils % 73.6 % (42.2-75.2) 07/19/24 04:52
Lymphocytes % 14.3 % (20.5-51.1) L 07/19/24 04:52
Monocytes % 10.0 % (1.7-9.3) H 07/19/24 04:52
Eosinophils % 0.9 % (0-6) 07/19/24 04:52
Basophils % 0.3 % (0-2) 07/19/24 04:52
Abs Neuts (Manual) Cancelled 07/19/24 04:52
Segmented Neutrophils Cancelled 07/19/24 04:52
Band Neutrophils Cancelled 07/19/24 04:52
Lymphocytes (Manual) Cancelled 07/19/24 04:52
Eosinophils (Manual) Cancelled 07/19/24 04:52
Basophils (Manual) Cancelled 07/19/24 04:52
Microbiology Results
Micro:
07/19/24 18:59 Blood Culture - Pending
Blood/Venous
07/19/24 16:44 Blood Culture - Pending
Blood/Venous
07/19/24 15:46 Influenza Types A & B (ZOYA) - Final
Nasal Swab Negative for Influenza A & B, NAAT
Negative results must be combined with clinical observations
and patient history.
Nucleic Acid Amplification test (NAAT)performed on the
[employer] ID NOW platform.
Imaging:
07/20/2024 CXR (2 view): No convincing focal infiltrates. No significant pleural effusions. No visualized pneumothorax. Stable enlargement of the cardiomediastinal silhouettes. Please see full dictation for additional detail. Film personally
viewed.
Assessment / Plan
Fever
- suspect 2* NSTEMI
Sustained V. tach
- plan for ICD
CAD
GERD
Dyslipidemia
ESRD�HD
Gout
Recommendations:
Other than fevers, patient has a normal white count with no left shift.
Overall, suspect fever secondary to cardiac injury. At present, no evidence of acute bacterial infection.
Can discontinue further antibiotics.
No objection from an Infectious Diseases standpoint to further cardiac procedures.
Care Review
Plan reviewed with: Physician (Hospitalist)
--- NOTE | 2024-07-20 12:46 | W.PN.NEPH.PH ---
Addendum entered and electronically signed by Aishwarya Garcia MD 07/20/24 12:58:
edit: HD plan on Thursday since off schedule
ICD tomorrow
Original Note:
Today's Communication / Plan
-
HD tomorrow timing base don ICD schedule
Assessment/Plan
-
IMP:
Chest Pain with Elevated Troponin consistent with NSTEMI
Probable cardiac arrest- he had a CPR done in his HD unit
Slow ventricular tachycardia noted Loop recorder
Chronic Diastolic Heart Failure
ESRD on dialysis Thursday -[facility] [phone]
Chr anemia
Chronic thrombocytopenia
HTN�benign
CAD/CABG x 5 vessel
Cardiac stent July 2022
HLD
Hx visual loss left eye due to vitreous hemorrhage March 2023
Gout
Plan:
A/w possible card arrest and CP-concern of NSTEMI
LHC 07/18, high LVEDP 27, CAD not amenable for revascularization
likely challenge EDW as allowed , limited by low BPs, cont midodrine with HD
ICD plan tomorrow, cleared by ID
HD plan tomorrow base do ICD timing , off schedule for holiday
renal diet and FR
d/w pt and nursing
-
-
Date of Service: July 20, 2024
CC / HPI / ROS
-
Chief Complaint:
ESRD
History of Present Illness:
tolerated HD yesterday
BP are soft.
no fever. WBC Normal
Review of Systems:
no cp or sob at rest
wt decreasing
Labs
-
Labs:
WBC 7.0 10^3/uL (4.8-10.8) 07/20/24 03:48
RBC 3.44 10^6/uL (4.70-6.10) L 07/20/24 03:48
Hgb 11.1 g/dL (13.0-18.0) L 07/20/24 03:48
Hct 33.6 % (39.0-52.0) L 07/20/24 03:48
Plt Count 119 10^3/uL (130-400) L 07/20/24 03:48
Sodium 134 mmol/L (135-145) L 07/19/24 04:52
Potassium 5.3 mmol/L (3.5-5.1) H 07/19/24 04:52
Chloride 97 mmol/L (98-107) L 07/19/24 04:52
Carbon Dioxide 18 mmol/L (22-30) L 07/19/24 04:52
BUN 73 mg/dl (9-20) H 07/19/24 04:52
Creatinine 8.5 mg/dL (0.7-1.3) H* 07/19/24 04:52
eGFR 6.06 07/19/24 04:52
Glucose 92 mg/dl (70-99) 07/19/24 04:52
Calcium 9.3 mg/dl (8.4-10.2) 07/19/24 04:52
Albumin 3.9 g/dl (3.5-5.0) 07/17/24 18:35
Physical Exam
-
Vital Signs:
Vital Signs
Temp Pulse Resp BP Pulse Ox
98.3 F 72 18 91/48 100
07/20/24 11:45 07/20/24 12:00 07/20/24 11:45 07/20/24 11:50 07/20/24 11:46
Cardiovascular:: Regular rate and rhythm
Respiratory:: Bilateral: CTA
Lung Excursion:: Normal
Abdomen:: Nontender and Soft
Extremity Edema:: None: Bilateral:
Joseph Catheter: No
--- NOTE | 2024-07-20 14:17 | PTCARENOTE ---
07/20/24 Received patient in bed with no complaints. Pt on personnel monitor reading NSR w/PVC's. Pt denies any headache, dizziness, chest pain or palpitations. Metoprolol and Imdur held for SBP<100. Cardiology aware. Pt independent. Pt for dialysis
and AICD placement on 07/21.
[2024-07-20 16:09] LABS: Urine Albumin 2+ (Neg - Trace); Urine Bilirubin Negative (Negative); Urine Character Mucous (Clear); Urine Color Yellow; Urine Glucose Negative (Negative); Urine Ketone Negative (Negative); Urine Leukocyte 2+ (Negative); Urine Nitrite Negative (Negative); Urine Occult Blood 3+ (Negative); Urine Urobilinogen Negative (Neg - 1+)
[2024-07-20 16:19] LABS: Urine White Cell >100 /HPF (0-5)
--- NOTE | 2024-07-20 16:20 | PTCARENOTE ---
assessment remains, no complaints. Family at bedside
[2024-07-20] MEDS: LOPRESSOR 12.5 MG PO (18:24)
[2024-07-20] MEDS: IMDUR (EXTENDED RELEASE) 60 MG PO (19:37)
[2024-07-20] MEDS: ZYLOPRIM 100 MG PO (22:13)
[2024-07-20] MEDS: LIPITOR 40 MG PO (22:13)
[2024-07-21] VITALS (21 sets, daily range): BP systolic 71–115; BP diastolic 38–67; BMI 26.6
[2024-07-21] MEDS: LOPRESSOR 12.5 MG PO ×4 (01:33→23:21)
--- NOTE | 2024-07-21 03:42 | PTCARENOTE ---
Pt awake,alert sinus with BBB and occ runs of bigeminy. Npo after mn for ICD placement.
[2024-07-21 05:03] LABS: Hematocrit 31.2 % (39.0-52.0); Hemoglobin 10.3 g/dL (13.0-18.0); Mean Corpuscular Hgb 32.1 pg (27.0-31.0); Mean Corpuscular Volume 97.2 fL (80.0-94.0); Mean Platelet Volume 11.9 fL (7.4-10.4); Platelet Count 122 10^3/uL (130-400); Red Blood Cell Count 3.21 10^6/uL (4.70-6.10); Red Cell Dist. Width 13.1 % (11.5-14.5); White Blood Cell Count 4.9 10^3/uL (4.8-10.8)
[2024-07-21 05:37] LABS: Blood Urea Nitrogen 76 mg/dl (9-20); Calcium 8.8 mg/dl (8.4-10.2); Carbon Dioxide 23 mmol/L (22-30); Chloride 93 mmol/L (98-107); Estimated Creatinine Clearance 7 ml/min; Glucose 98 mg/dl (70-99); Magnesium 2.3 mg/dl (1.6-2.3); Potassium 4.4 mmol/L (3.5-5.1); Sodium 132 mmol/L (135-145); eGFR 6.23
[2024-07-21] MEDS: PACERONE 400 MG PO ×2 (07:43→21:02)
[2024-07-21] MEDS: ASPIR LOW (ENTERIC COATED) 81 MG PO (07:43)
[2024-07-21] MEDS: IMDUR (EXTENDED RELEASE) 60 MG PO ×2 (07:43→21:03)
--- NOTE | 2024-07-21 07:49 | W.PN.CD ---
Today's Communication / Plan
-
- ICD today
Impression / Plan
-
Cardiac arrest with sustained ventricular tachycardia:
-[facility] - 07/18/24 :
-Right dominant circulation with chronic total occlusion of the ostial LAD, the origin of the diagonal, the origin of the circumflex to the origins of OM1 and OM 2 as well as the mid RPDA, status post 5-vessel bypass (patent JUAN to LAD with [employer] TECHNICIAN
ISR distal to the JUAN anastomosis, backfilling the mid LAD septal cabin furnishings installer, patent SVG to D1, patent sequential SVG to OM1-OM2 with a 50% lesion in OM 2 immediately after the graft anastomosis and a patent LRA to RPDA) with a 70% lesion in the
proximal RPDA followed by a 40-50% lesion in the mid RPDA.
- Severely elevated filling pressures (LVEDP = 27 mmHg at 79.0 kg)
-On amiodarone - 400 mg BID and Metoprolol 12.5 mg q6h
-ICD defibrillator plan for tomorrow if remains afebrile for 24 hours
-last fever - 07/19 at 7:45 pm - 101.2F
-of note, bradycardia with 4.4 second pause also noted on loop recorder
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
NSTEMI:
-Type II with VT. cath 07/18 as noted above
-Trop leak is likely due to cardiac arrest and CPR and shock.
-Peaked trop 11.4. last 6.5
-ASA full dose given, continue daily ASA
-Off Heparin drip now.
-echo 07/18/24: LVEF 45% - Hypokinesis of the basal to apical inferior wall and basal to mid septal león.
Fever
- Afebrile now.
- Managed by Primary team
- ID on board - cleared for ICD implant.
CAD with CABG and stenting:
-complex, severe coronary disease-
- Previous cath 03/13/2023: Severe [place] CAD similar to the prior study with patent JUAN-LAD, SVG-diagonal, and LRA-RPDA bypass grafts. There is noncritical restenosis in the LAD distal to the TRACEY graft touchdown site. This patient has had
multiple layers of stent placed in the LAD distal to the TRACEY graft touchdown site- no stenting recommend at that time.
-continue ASA, statin, BB, and Imdur
ESRD on HD:
-nephrology is following
Physical Exam
Vital Signs/Labs
Vital Signs
Temp Pulse Resp BP Pulse Ox
98.9 F 82 20 105/57 96
07/21/24 07:17 07/21/24 07:44 07/21/24 07:17 07/21/24 07:44 07/21/24 07:17
07/20/24 07/21/24 07/22/24
06:59 06:59 06:59
Actual Weight 73.5 kg 74.8 kg
07/21/24 04:40
07/21/24 04:40
APTT Cancelled 07/18/24 17:45
Magnesium 2.3 mg/dl (1.6-2.3) 07/21/24 04:40
LAB Results
07/18/24 07/18/24 07/19/24
11:07 17:03 18:59
Troponin I 10.100 H* D 11.400 H* 6.580 H*
Physical Exam
Constitutional: No acute distress and Comfortable
EENT: Anicteric and Moist mucous membranes
Cardiovascular: Rhythm/rate is irregular, JVD present and Systolic murmur present
Respiratory: Respiratory effort normal, Crackles Absent and Rhonchi Absent
GI: Soft, Non tender and Normal bowel sounds
Neuro/Psych: Alert, Oriented and AO x 3
Data Reviewed
-
Date of Service: July 21, 2024
Medical Decision Making: Reviewed Test Results, Independent Historian Assessment, Test Interpretation and Review of Case with other Provider
EKG: Tracing Personally Visualized and interpreted
Echo: Report Reviewed by me
Labs: Labs Reviewed by me
Old Records: Reviewed
--- NOTE | 2024-07-21 08:15 | PTCARENOTE ---
pt is sr on the monitor, hr in the 80s, vss. pt offers no complaints at this time. pt educated on plan of care and pt verbalized understanding. pt wiped down w/ CHG wipes. call sujata w/in reach.
report called to lab. pt off unit for procedure.
--- NOTE | 2024-07-21 09:47 | ITS.CL.ICD ---
Director Of Coding - ICD
Implantable Cardioverter Defibrillator
Procedure Report:
Dual Chamber Implantable Cardioverter Defibrillator Placement:
Mr. Bower is a 74-year-old male with CAD, hypertension, dyslipidemia, ESRF on HD, with tachy brdy syndrome presented with VT arrest. His ILR recorded monomorphic VT that sped up from 190 bpm to 220s bpm with cardiac arrest and required CPR. With
his hx of bradycardia and pauses, he is advised to get a dual chamber ICD placement. He has AV fistulae on the left arm and right sided device implanted is mandated.
Indications: Tachy esther syndrome with ventricular tachycardia and cardiac arrest
Date of the Procedure:
07/21/2024
Pre-Operative Diagnosis: Tachy esther syndrome with ventricular tachycardia and cardiac arrest
Post-Operative Diagnosis: Tachy esther syndrome with ventricular tachycardia and cardiac arrest
Procedure Performed: DUAL CHAMBER IMPLANTABLE CARDIOVERTER DEFIBRILLATOR IMPLANTATION
Surgeon:
Tommy Vang MD
Anesthesia:
See anesthesia report
Detailed Description of the Procedure:
The patient was identified using hospital identification and informed consent obtained for the procedure. The risks were explained including, but not limited to: Bleeding, infection, arrhythmia, stroke, vascular/cardiac/lung puncture, surgery,
pacemaker dependency/device malfunction. All questions were answered.
The patient was brought to the electrophysiology laboratory in stable condition in fasting state. Continuous electrocardiographic and hemodynamic monitoring was initiated. The initial rhythm was sinus with PACs and PVCs.
The procedure site was meticulously prepared with surgical scrub and allowed to dry with no pooling. Sterile draping was applied to cover the procedure site. The image intensifier was draped with sterile bag and positioned over the patient.
The right infra-clavicular region was prepped and draped in the usual sterile fashion. Local anesthesia was administered subcutaneously using 1% lidocaine / Bupivacaine. The right cephalic vein cut-down was performed with an incision at the
delto-pectoral groove, and vascular sheaths were introduced for lead access. These were advanced into the right ventricle and the right atrium.
The right ventricular lead was secured in position with an active fixation technique at the apical septal location.
The RA lead was attached in the right atrial appendage with active fixation.
There was excellent sensing, pacing, and impedance from the leads, with no diaphragmatic stimulation at 10 V output.�Bovie cautery, antibiotics, and fluoroscopy were used.
The sheath was withdrawn, and the thresholds remained acceptable. The lead was secured in position at the venous entry site with 0-silk. A pocket was fashioned contiguous to the incision. The electrode terminals were connected to the pulse
generator, which was placed into the pocket. The wound was irrigated thoroughly with antibiotic solution and closed in 3 layers using 2-0 VLoc sutures followed by 2 layers of 4-0 V-loc sutures. Steri-Strips and a bandage were applied externally.�
ILR explant:
The left parasternal chest area was prepped and draped in sterile fashion with chlorahexidine prep x 3 times. Lidocaine 1% was injected subcutaneously for local anesthesia. The loop recorder was palpated and the location was identified. An incision
was made at the previoous insertion location. The blunt dissection was done to identify the location of the ILR. The capsule was cut and the ILR was pulled out of the capsule. The dermis was closed with steristrips and a pressure Tegaderm dressing
was placed.
There were no immediate complications.
Procedure End:
The procedure was tolerated well. A bandage was applied to the incision area.
Estimated Blood loss:
5 cc
Fluoro time:
2.7min / 6.43mGy
Specimens Removed:
No cultures and no specimens were obtained. No intraoperative pathology was identified.
Urine output:
None
Packs / Drains/ Tubes:
None
Instrument / Sponge Count Correct:
Yes
Complications of the Procedure:
None
Condition of Patient at Time of Transfer:
Hemodynamically stable with no neurological or vascular compromise.
Device information:�
Generator: [employer]; Model: ORKM5L4; Serial # [id number]�
Atrial Lead: [employer]; Model: 5076-45; Serial # [id number]�
Measured data in the right atrium was sensing of 1.4 mV, impedance of 912 ohms and threshold of 1.5 V at 0.4ms�
RV Lead: [employer]; Model: 6935M-55; Serial # [id number]
Measured data in the RV lead was sensing of 4.4 mV, impedance of 380 ohms and threshold of 0.75 V at 0.4ms�
PROGRAMMING PARAMETERS:�
Esther parameter settings were AAI <=>DDD 70-130 bpm. �
����������� Mode switch: On
����������� Paced AV delay: 180 ms
����������� Sensed AV delay: 150 ms
����������� Rate Adaptive A-V Interval: Off
Output parameters:
����������������������� Amplitude (V)������������� Pulse Width (ms)������� Sensitivity (mV)
����������� RA: ����� 3.5 ����������������� ����������� 0.4������������������ ����������� 0.3
����������� RV:������ 3.5������������������ ����������� 0.4������������������ ����������� 0.3
Tachy parameter settings:
����������� SVT discrimination: On
����������� AF/AFl: On
����������� SVT limit: 260 msec
����������� VT zone:
����������������������� Slow VT: 150 - 188 bpm --> Monitor
����������������������� Fast VT/VF: > 188 bpm --> Shock x6 (ATP before and during)
�����������
Summary:
Successful implantation of MRI compatible dual chamber [employer] implantable Cardioverter Defibrillator.�
Results/Recommendations:
-Please follow up CXR�
1. Please provide patient with adequate pain control�
Instructions to be given to patient:�
- Please follow up with [facility] at [address] [place] [address] ([phone]) to get your wound checked within 14 days of your discharge.
- Do not soak incision site until after it is evaluated at cardiology clinic. OK to showers followed by dab dry the area. No baths or swimming until then. Sponge baths are OK.�
- Allow 'steri strips' to fall off on their own�
- Do not lift right elbow above shoulder, particularly with sudden jerking movements, for 1 month�
- Do not lift anything weighing more than 5 pounds with the right arm for 1 month�
- If you notice any fevers, shortness of breath, lightheadedness, chest pain, or worsening swelling in the wound site, please contact the arrhythmia clinic, contact your medical laboratory technical officer, or present to the hospital for evaluation.�
Tommy Vang MD
Electrophysiology
--- NOTE | 2024-07-21 10:33 | W.PN.ID1 ---
Date of Service
Date of Service: July 21, 2024
Today's Communication
Sign off
Assessment / Plan
Fever
- suspect 2* NSTEMI
Sustained V. tach
- S/P ICD placement 07/21/2024
CAD
GERD
Dyslipidemia
ESRD�HD
Gout
Recommendations:
Other than fevers, patient has a normal white count with no left shift.
Overall, suspect fever secondary to cardiac injury. At present, no evidence of acute bacterial infection.
Patient's status post ICD placement
Little more to offer from a Infectious Diseases standpoint.
Will see again at your request.
����������������������������������������������������������
Chief Complaint
-: Fever
Subjective / Review of Systems
Review of Systems: No Fever and No Chills
Vital Signs / Physical Exam
Vital Signs
Vital Signs
Temp Pulse Resp BP Pulse Ox
97.8 F 82 20 105/57 96
07/21/24 10:09 07/21/24 07:44 07/21/24 10:09 07/21/24 07:44 07/21/24 10:09
Physical Exam
Constitutional: No Acute Distress, Comfortable and Non-toxic
Eyes: Sclera Anicteric
Cardiovascular: S1/S2; Negative S3/S4
Pulmonary: Non Labored
Neurological: Awake and Alert
Psychological: Calm
Objective Data
Lab Data
Lab Results
07/21/24 04:40
07/21/24 04:40
APTT Cancelled 07/18/24 17:45
Estimated Creat Clear 7 ml/min 07/21/24 04:40
Total Bilirubin 0.7 mg/dl (0.2-1.3) 07/17/24 18:35
AST 17 U/L (17-59) 07/17/24 18:35
ALT 16 U/L (0-50) 07/17/24 18:35
Alkaline Phosphatase 192 U/L (38-126) H 07/17/24 18:35
Most recent labs reviewed.
Micro Results:
07/19/24 18:59 Blood Culture - Preliminary
Blood/Venous No Growth in 24 hours- Final report to follow
07/19/24 16:44 Blood Culture - Preliminary
Blood/Venous No Growth in 24 hours- Final report to follow
07/20/24 15:59 Urine Culture - Pending
Urine
07/19/24 15:46 Influenza Types A & B (ZOYA) - Final
Nasal Swab Negative for Influenza A & B, NAAT
Negative results must be combined with clinical observations
and patient history.
Nucleic Acid Amplification test (NAAT)performed on the
[employer] platform.
Imaging:
07/20/2024 CXR (2 view): No convincing focal infiltrates. No significant pleural effusions. No visualized pneumothorax. Stable enlargement of the cardiomediastinal silhouettes. Please see full dictation for additional detail. Film personally
viewed.
--- NOTE | 2024-07-21 11:14 | PTCARENOTE ---
received pt from ICD procedure. site is [facility]. pt offers no complaints at this time. pt educated on restrictions. immobilizer in place. pt is sr on the monitor, hr in the 80s, vss. call ernst within reach.
[2024-07-21] MEDS: RENVELA PO ×2 (12:00→16:51)
[2024-07-21] MEDS: VITAMIN D3 (cholecalciferol) PO (12:00)
[2024-07-21] MEDS: VITAMIN B-12 PO (12:00)
[2024-07-21] MEDS: LOPRESSOR PO (12:27)
--- NOTE | 2024-07-21 12:47 | CM ---
Reviewed chart. Met with Mr. Yang to review discharge plans. He states he is feeling better and maybe able to go home soon. Prior to admission he resides with his spouse in a two story home with one step to enter. He has a full flight of
steps to get to bathroom. He has a full abthroom on each level. Prior to admission he was independent with ambulation and adls. He does not have any DME in the home. He does to outpatient dialysis at [facility] on
Thursday,Thursday anf Thursday at 10:[address] He drives himself to outpatient dialysis. He has a prescription plan. Will need to see her current functional level to see if he will have any skilled care needs. Medical work-up in progress. The
discharge plan is to return home with his spouse with resumption of outpatient dialysis when medically stable.
--- NOTE | 2024-07-21 12:53 | W.PN.HOSP.TC ---
Today's Communication/Plan
-
HD today
DC planning
Assessment / Plan
Assessment / Plan
Chest Pain with Elevated Troponin consistent with NSTEMI
-Remains Asymptomatic without any further chest pains
-Patient with known extensive coronary artery disease with CABG x5 and multiple stents-patient states last coronary stent in 2022. Currently on aspirin.
-Off heparin drip
-Continue aspirin
-Continue isosorbide
-s/p cardiac cath 07/18 at CAD but no viable options for revascularization. Low EF noted.
- ECHO-drop in EF from 60 to 65% to 40 to 45% noted. Inferior wall is more hypokinetic compared to before. Degree of mitral regurgitation has increased from mild to moderate. Gradient across the aortic valve is stable.
Probable cardiac arrest- he had a CPR done in his HD unit. He complains of sore chest from the CPR. Chest x-ray on admission without any acute cardiopulmonary abnormalities
Slow ventricular tachycardia-Loop recorder shows slow ventricular tachycardia
-Continue amiodarone oral
-Continue metoprolol 12.5mg q6 if BP allows
-s/p ICD 07/21
Fever - without any focal infective symptoms or signs.
Neg COVID, influenza
Consulted ID -suspect tissue trauma from CPR/Cardiac arrest. Holding on abx. No further fevers.
Pyuria noted but no symptoms .Follow cx data
Chronic Diastolic Heart Failure
- Clincally compensated
- Continue fluid restriction
-Monitor Is&Os and Daily Weight
-Volume managed with dialysis
ESRD on HD
- Nephrology following
-Continue sevelamer
Chronic Anemia / Thrombocytopenia
-Monitor counts closely while on heparin drip
DVT proph: Heparin drip
Code Status: Full Code
DC home when ok from cardiology standpoint.
Anticipated Discharge: Within 24 hours
Subjective/Interval History
-
Date of Service: July 21, 2024
Back from his ICD placement.
Denies any dizziness, shortness of breath .No chest pain apart from pain from the incision site.
No nausea vomiting. Denies any cough or sore throat.
Denies any diarrhea.
Denies any dysuria frequency of urine. He is on dialysis and makes small amount of urine but voicing no complaints from his urinary tract.
Objective Data
-
Labs:
Laboratory Results
07/21/24
04:40
WBC 4.9
Hgb 10.3 L
Hct 31.2 L
Plt Count 122 L
Sodium 132 L
Potassium 4.4
Chloride 93 L
Carbon Dioxide 23
BUN 76 H
Creatinine 8.3 H*
Glucose 98
Calcium 8.8
Vital Signs:
Vital Signs
Temp Pulse Resp BP Pulse Ox
97.8 F 82 20 105/57 96
07/21/24 10:09 07/21/24 07:44 07/21/24 10:09 07/21/24 07:44 07/21/24 10:09
I&O
07/20/24 07/21/24 07/22/24
06:59 06:59 06:59
Intake Total 290 / 290 480 / 480
Balance 290 / 290 480 / 480
Review of Systems
-
Constitutional: Denies Fever
EENT: Denies Sore Throat
Respiratory: Denies Cough or Trouble Breathing
Abdomen/GI: Denies Abdominal Pain, Nausea, Vomiting or Diarrhea
Neuro: Denies Dizzy
Physical Exam
-
General: No Apparent Distress
Respiratory: Non Labored Respirations and Other (ICD insertion site with clean dressing); Negative Accessory Resp Muscle Use
Cardiac: Regular Rhythm and S1/S2; Negative Tachycardic
GI: Soft and Nontender
Neuro: AO x 3
Data Reviewed
-
Labs: Labs Reviewed by me
--- NOTE | 2024-07-21 14:42 | W.PN.NEPH.PH ---
Today's Communication / Plan
-
No acute need for dialysis today
Dialysis tomorrow Thursday schedule
Assessment/Plan
-
IMP:
Chest Pain with Elevated Troponin consistent with NSTEMI
Probable cardiac arrest- he had a CPR done in his HD unit
Slow ventricular tachycardia noted Loop recorder
Chronic Diastolic Heart Failure
[facility] [phone]
Chr anemia
Chronic thrombocytopenia
HTN�benign
CAD/CABG x 5 vessel
Cardiac stent July 2022
HLD
Hx visual loss left eye due to vitreous hemorrhage March 2023
Gout
Plan:
A/w possible card arrest and CP-concern of NSTEMI
LHC 07/18, high LVEDP , CAD not amenable for revascularization
Status post ICD
Regular dialysis schedule Thursday
Dialysis tomorrow
See orders
-
-
Date of Service: July 21, 2024
CC / HPI / ROS
-
Chief Complaint:
ESRD
History of Present Illness:
Status post PPM
Review of Systems:
no cp or sob at rest
Labs
-
Labs:
WBC 4.9 10^3/uL (4.8-10.8) 07/21/24 04:40
RBC 3.21 10^6/uL (4.70-6.10) L 07/21/24 04:40
Hgb 10.3 g/dL (13.0-18.0) L 07/21/24 04:40
Hct 31.2 % (39.0-52.0) L 07/21/24 04:40
Plt Count 122 10^3/uL (130-400) L 07/21/24 04:40
Sodium 132 mmol/L (135-145) L 07/21/24 04:40
Potassium 4.4 mmol/L (3.5-5.1) 07/21/24 04:40
Chloride 93 mmol/L (98-107) L 07/21/24 04:40
Carbon Dioxide 23 mmol/L (22-30) 07/21/24 04:40
BUN 76 mg/dl (9-20) H 07/21/24 04:40
Creatinine 8.3 mg/dL (0.7-1.3) H* 07/21/24 04:40
eGFR 6.23 07/21/24 04:40
Glucose 98 mg/dl (70-99) 07/21/24 04:40
Calcium 8.8 mg/dl (8.4-10.2) 07/21/24 04:40
Albumin 3.9 g/dl (3.5-5.0) 07/17/24 18:35
Physical Exam
-
Vital Signs:
Vital Signs
Temp Pulse Resp BP Pulse Ox
97.8 F 82 20 105/57 96
07/21/24 10:09 07/21/24 07:44 07/21/24 10:09 07/21/24 07:44 07/21/24 10:09
Cardiovascular:: Regular rate and rhythm
Respiratory:: Bilateral: CTA
Lung Excursion:: Normal
Abdomen:: Nontender and Soft
Bowel Sounds:: Normal
Extremity Edema:: None: Bilateral:
Joseph Catheter: No
--- NOTE | 2024-07-21 14:52 | W.PN.NEPH.HD ---
Addendum entered and electronically signed by Jose Guadalupe Bravo DO 07/21/24 14:54:
Correction the patient did not have dialysis today , will have dialysis tomorrow
See progress note prior to this
Original Note:
Progress Note - Hemodialysis
-
Date of Service: July 21, 2024
Duration: 30 minutes and 3 hours
Potassium Bath: 2
Calcium Bath: 2.5
Opti-Dialyzer: 160
Ultrafiltration: Other (1.5-2kg)
Blood Flow: 400
Dialysate Flow: 600
Heparin: no
EPO: no
[2024-07-21] MEDS: FLUSH (NSS) 1 FLUSH IV (16:50)
[2024-07-21] MEDS: ANCEF 5 IV ×2 (16:50→23:22)
[2024-07-21] MEDS: RENVELA 2400 MG PO (16:51)
[2024-07-21] MEDS: TYLENOL 650 MG PO ×2 (17:23→23:21)
--- NOTE | 2024-07-21 19:32 | PTCARENOTE ---
notified dr. aguila of slight crepitus around ppm dressing. pt stated pain 3/10, Tylenol given, pt found relief. pt is sr w/ a bbb, vss. pt educated on plan of care and pt verbalized understanding. call sujata w/in reach.
[2024-07-21] MEDS: LIPITOR 40 MG PO (21:02)
[2024-07-21] MEDS: ZYLOPRIM 100 MG PO (21:03)
[2024-07-22] VITALS (36 sets, daily range): BP systolic 85–132; BP diastolic 50–74; BMI 27.2
[2024-07-22 03:36] LABS: Hematocrit 33.8 % (39.0-52.0); Hemoglobin 10.7 g/dL (13.0-18.0); Mean Corp Hgb Conc. 31.7 g/dL (33.0-37.0); Mean Corpuscular Hgb 31.8 pg (27.0-31.0); Mean Corpuscular Volume 100.3 fL (80.0-94.0); Platelet Count 129 10^3/uL (130-400); Red Blood Cell Count 3.37 10^6/uL (4.70-6.10); Red Cell Dist. Width 13.2 % (11.5-14.5); White Blood Cell Count 5.5 10^3/uL (4.8-10.8)
[2024-07-22 04:06] LABS: Blood Urea Nitrogen 92 mg/dl (9-20); Calcium 8.8 mg/dl (8.4-10.2); Carbon Dioxide 21 mmol/L (22-30); Chloride 92 mmol/L (98-107); Estimated Creatinine Clearance 6 ml/min; Glucose 115 mg/dl (70-99); Magnesium 2.5 mg/dl (1.6-2.3); Potassium 4.7 mmol/L (3.5-5.1); Sodium 133 mmol/L (135-145); eGFR 5.58
[2024-07-22] MEDS: LOPRESSOR PO (07:05)
--- NOTE | 2024-07-22 08:50 | W.PN.CD ---
Today's Communication / Plan
-
amiodarone - 400 mg BID until August 04 then 200 mg daily
Metop XL 50 mg daily
ICD in place has follow up on July 29
We will sign-off; please call with questions/concerns.
Impression / Plan
-
Cardiac arrest with sustained ventricular tachycardia:
-[facility] - 07/18/24 :
-Right dominant circulation with chronic total occlusion of the ostial LAD, the origin of the diagonal, the origin of the circumflex to the origins of OM1 and OM 2 as well as the mid RPDA, status post 5-vessel bypass (patent JUAN to LAD with [employer] SUPERVISOR
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
proximal RPDA followed by a 40-50% lesion in the mid RPDA.
- Severely elevated filling pressures (LVEDP = 27 mmHg at 79.0 kg)
-On amiodarone - 400 mg BID until August 04 then 200 mg daily
- Start metop 50 XL daily
-ICD defibrillator plan for tomorrow if remains afebrile for 24 hours
-last fever - 07/19 at 7:45 pm - 101.2F
-of note, bradycardia with 4.4 second pause also noted on loop recorder
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
NSTEMI:
-Type II with VT. cath 07/18 as noted above
-Trop leak is likely due to cardiac arrest and CPR and shock.
-Peaked trop 11.4. last 6.5
-ASA full dose given, continue daily ASA
-Off Heparin drip now.
-echo 07/18/24: LVEF 45% - Hypokinesis of the basal to apical inferior wall and basal to mid septal león.
Fever
- Afebrile now.
- Managed by Primary team
- ID on board - cleared for ICD implant.
CAD with CABG and stenting and ICMO chronic HFmrEF 40-45%
-complex, severe coronary disease-
- Previous cath 03/13/2023: Severe [place] CAD similar to the prior study with patent JUAN-LAD, SVG-diagonal, and LRA-RPDA bypass grafts. There is noncritical restenosis in the LAD distal to the TRACEY graft touchdown site. This patient has had
multiple layers of stent placed in the LAD distal to the TRACEY graft touchdown site- no stenting recommend at that time.
-continue ASA, statin, BB, and Imdur
- GDMT limited given ESRD: ARNi/ANUSHKA/ARB unable, SGLT2i unable, BB he is on, MRA given HD would not start
ESRD on HD:
-nephrology is following
Physical Exam
Vital Signs/Labs
Vital Signs
Temp Pulse Resp BP Pulse Ox
97.6 F 79 16 123/59 98
07/22/24 07:33 07/22/24 08:15 07/22/24 07:33 07/22/24 08:15 07/22/24 07:33
07/21/24 07/22/24 07/23/24
06:59 06:59 06:59
Actual Weight 164 lb 14.492 oz 168 lb 6.931 oz
07/22/24 03:25
07/22/24 03:25
APTT Cancelled 07/18/24 17:45
Magnesium 2.5 mg/dl (1.6-2.3) H 07/22/24 03:25
LAB Results
07/19/24
18:59
Troponin I 6.580 H*
Physical Exam
Constitutional: No acute distress and Comfortable
EENT: Anicteric
Cardiovascular: Rhythm & rate is regular and Pedal edema present (trace)
Respiratory: Respiratory effort normal and Lungs clear to auscul.
GI: Soft
Neuro/Psych: AO x 3
Data Reviewed
-
Date of Service: July 22, 2024
EKG: Tracing Personally Visualized and interpreted (sr)
Echo: Report Reviewed by me
Labs: Labs Reviewed by me
[2024-07-22] MEDS: RENVELA 2400 MG PO ×3 (09:42→18:16)
[2024-07-22] MEDS: IMDUR (EXTENDED RELEASE) PO (09:44)
[2024-07-22] MEDS: MANNITOL 25% 12.5 GRAMS IV (09:50)
--- NOTE | 2024-07-22 10:13 | W.PN.HOSP.TC ---
Today's Communication/Plan
-
d/c
Assessment / Plan
Assessment / Plan
pt is a 74 year old male
Chest Pain with Elevated Troponin consistent with NSTEMI--Remains Asymptomatic without any further chest pains---s/p cardiac cath 07/18 has CAD but no viable options for revascularization. Low EF noted- ECHO-drop in EF from 60 to 65% to 40 to 45%
noted. Inferior wall is more hypokinetic compared to before. Degree of mitral regurgitation has increased from mild to moderate. Gradient across the aortic valve is stable-Patient with known extensive coronary artery disease with CABG x5 and
multiple stents-patient states last coronary stent in 2022. Currently on aspirin/isosorbide
Probable cardiac arrest- he had a CPR done in his HD unit. He complains of sore chest from the CPR. Chest x-ray on admission without any acute cardiopulmonary abnormalities
Slow ventricular tachycardia--Loop recorder shows slow ventricular tachycardia-Continue amiodarone oral-Continue toprol XL-s/p ICD 07/21
Fever - without any focal infective symptoms or signs--Neg COVID, influenza--Consulted ID -suspect tissue trauma from CPR/Cardiac arrest. Holding on abx. No further fevers--Pyuria noted but no symptoms .Follow cx data
Chronic Diastolic Heart Failure- Clinically compensated - Continue fluid restriction-Monitor Is&Os and Daily Weight-Volume managed with dialysis
ESRD on HD - Nephrology following-Continue sevelamer
Chronic Anemia / Thrombocytopenia-Monitor counts closely while on heparin drip
DVT proph: Heparin drip
Code Status: Full Code
DC home
Anticipated Discharge: Today
Subjective/Interval History
-
Date of Service: July 22, 2024
pt getting HD--no c/o
Objective Data
-
Labs:
Laboratory Results
07/22/24
03:25
WBC 5.5
Hgb 10.7 L
Hct 33.8 L
Plt Count 129 L
Sodium 133 L
Potassium 4.7
Chloride 92 L
Carbon Dioxide 21 L
BUN 92 H
Creatinine 9.1 H*
Glucose 115 H
Calcium 8.8
Vital Signs:
max temp for 24 hours
07/21/24
23:42
Temp 97.8 F
Vital Signs
Temp Pulse Resp BP Pulse Ox
97.6 F 79 16 123/59 98
07/22/24 07:33 07/22/24 08:15 07/22/24 07:33 07/22/24 08:15 07/22/24 07:33
I&O
07/21/24 07/22/24 07/23/24
06:59 06:59 06:59
Intake Total 480 / 480
Balance 480 / 480
Review of Systems
-
All other systems: Reviewed and negative
Physical Exam
-
General: Well Developed, Well Nourished and No Apparent Distress
HEENT: Normocephalic and Atraumatic
Respiratory: Clear to Auscultation; Negative Wheezes or Rhonchi
Cardiac: Regular Rhythm, S1/S2 and Murmur
GI: Soft, Nontender, Nondistended and Normal Bowel Sounds
Musculoskeletal: No Clubbing, No Cyanosis and No Edema
Skin: Warm
Neuro: Awake and Alert
--- NOTE | 2024-07-22 10:15 | PTCARENOTE ---
Received patient this morning resting in bed. Aquacel dressing is dry and intact right upper chest, immobilizer removed and reinforced activity restrictions. Patient receiving HD now and tolerating well. Metoprolol q6H changed to longer acting to be
given now. Tt to Dr. Lutz that I will give to the patient when HD is completed due to hx of hypotension with dialysis.
--- NOTE | 2024-07-22 10:40 | W.PN.NEPH.HD ---
Assessment
-
Seen on HD. no complaints. VSS< access ok
for dc
Progress Note - Hemodialysis
-
Date of Service: July 22, 2024
Duration: 30 minutes and 3 hours
Potassium Bath: 2
Calcium Bath: 2.5
Opti-Dialyzer: 160
Ultrafiltration: Other (3kg)
Blood Flow: 400
Dialysate Flow: 600
Heparin: no
EPO: no
[2024-07-22] MEDS: VITAMIN B-12 100 MCG PO (12:08)
[2024-07-22] MEDS: PACERONE 400 MG PO ×2 (12:08→20:05)
[2024-07-22] MEDS: VITAMIN D3 (cholecalciferol) 25 MCG PO (12:09)
[2024-07-22] MEDS: ASPIR LOW (ENTERIC COATED) 81 MG PO (12:09)
[2024-07-22] MEDS: FLUSH (NSS) 1 FLUSH IV (12:11)
[2024-07-22] MEDS: KEFLEX 500 MG PO (12:46)
[2024-07-22] MEDS: TYLENOL 650 MG PO (12:46)
--- NOTE | 2024-07-22 13:09 | PTCARENOTE ---
Tt to Dr. Roberts re: UC results and patient medicated with PO abx as ordered. Patient for discharge today. Finishing up HD, monitoring VS but insistent about getting oob to use the bathroom and became agitated with me when I tried to help him to
the bathroom. Unsteady while ambulating to the bathroom and BP did drop to 98/55 when oob and he felt dizzy, lying in bed now, monitoring VS. Emphasizing need to rest initially after treatment.
[2024-07-22] MEDS: TOPROL XL PO (15:03)
--- NOTE | 2024-07-22 15:04 | PTCARENOTE ---
Patient waiting for his family for discharge. Would prefer to take his metoprolol HS so that it will not interfere with his HD schedule which is usually at 1000 MWF, BP now 100/52.
--- NOTE | 2024-07-22 17:03 | CM ---
Reviewed chart. Mr Bower was scheduled to go home today but he felt weak and dizzy. Met with Mr. and Mrs. Bower and his daughter to review discharge plans. Reviewed with them he will be seen by Physical and Occupational therapy to evaluate
his functional status. We reviewed discharge options including SNF/Rehab and [facility]NA Options. Telephone call to [facility] to make the referral if he can go home. Will need P.T. and O.T to make referrals for SNF. Medical work-up in
progress. The discharge plan is to return home with spouse and [facility] versus SNF/Rehab. if bed available.
--- NOTE | 2024-07-22 17:49 | W.DCSUMMARY ---
Addendum entered and electronically signed by Ratna Roberts MD 07/23/24 14:39:
urine culture with ESBL E. coli--will change cephalexin to augmentin x 1 week
Addendum entered and electronically signed by Ratna Roberts MD 07/23/24 09:10:
refused to take patient home yesterday. Actual discharge date July 23, 2024.
Patient seen in consultation by physical therapy and Occupational Therapy. Patient did not overtly stumble but did sway. They feel he could benefit from a walker if he would use it. They also recommended home PT with [facility].
Patient is not to drive until he is seen by his physician and cleared.
In addition, urine culture from July 20 is still not completed. Still reading gram-negative bacilli. Cephalexin dose has been changed to 250 mg daily for 5 more days based on renal function.
Original Note:
Discharge Summary
Discharge Data
Date of Admission: 07/17/24
Date of Discharge: 07/22/24
Total time spent discharging patient (in min): 39
-
Pending Results: No
Hospital Course
Primary care physician : Not Listed
Principal Discharge diagnosis : Non-ST segment elevation myocardial infarction with possible cardiac arrest, slow ventricular tachycardia, fever
Chronic Discharge diagnosis : Chronic diastolic heart failure, end-stage renal disease on hemodialysis, chronic anemia with thrombocytopenia
Hospital Course : Patient was a 74-year-old male who presented following an episode of chest pain and loss of consciousness. He was at dialysis when this happened. He did not take his usual medications he took a dose of isosorbide about 30 minutes
later the pain improved. However toward the end of dialysis he was unconscious. Staff could not find a pulse and started CPR. Patient quickly recovered and refused for emergency medical services to be called. His brought him to the
emergency department for evaluation.
Problem #1: Non-ST segment elevation myocardial infarction (NSTEMI) with possible cardiac arrest. Patient had a cardiac catheterization on July 18, 2024 which showed coronary artery disease but no viable options for revascularization. In
addition patient had an echocardiogram done which showed a drop in his ejection fraction from 60 to 65% down to 40 to 45%. Cardiology input is appreciated. Patient should continue on aspirin and isosorbide. It appears that the patient had CPR
done in the dialysis unit and he was complaining of a sore chest. He had no further acute cardiopulmonary abnormalities.
Problem #2: Slow ventricular tachycardia. Patient had a loop recorder which showed ventricular tachycardia. He was on oral amiodarone and Toprol XL. Dose was increased. In addition, ICD was placed on July 21, 2024. Patient was kept
overnight for observation.
Problem #3: Fever. Patient was found to have a fever and urinalysis and culture were done. Urinalysis was positive and culture is showing gram-negative bacilli identification yet unknown. Patient was started on Keflex. He should continue that
course at discharge unless the identification reveals that this is resistant to that medication.
Problem #4: All other medical issues. These include Chronic diastolic heart failure, end-stage renal disease on hemodialysis, chronic anemia with thrombocytopenia. These medical issues are stable during his hospitalization. Medications were
continued as able.
Patient is stable for discharge home at this time. If there are any questions regarding this dictation or his hospital stay, please not hesitate to call. Our office number is [phone].
Procedure findings :
ECHOCARDIOGRAM CONCLUSIONS
Normal left ventricular size with mildly reduced systolic function. LVEF 40-
45%.
Hypokinesis of the basal to apical inferior wall and basal to mid septal león.
Normal right ventricular size and systolic function.
Restricted motion of the posterior mitral valve leaflet resulting in moderate
to severe mitral regurgitation.
Low-flow low gradient aortic stenosis (peak/mean gradient 19/10 mmHg, CHICA 1.3
cm2).
Mild to moderate tricuspid regurgitation. Mildly elevated pulmonary artery
pressure (PASP 38 mmHg).
Compared to last echocardiogram on 07/16/2023, LV function is worse (previous
LVEF 60-65%) and the inferior wall is more hypokinetic. Degree of mitral
regurgitation has increased from mild to moderate. Aortic valve gradients are
stable though noting that stroke-volume index is lower on today's study.
Calculated CHICA has decreased from 1.9 to 1.3 cm2.
CARDIAC CATH CONCLUSIONS
1. Right dominant circulation with chronic total occlusion of the ostial LAD, the origin of the diagonal, the origin of the circumflex to the origins of OM1 and OM 2 as well as the mid RPDA, status post 5-vessel bypass (patent JUAN to LAD with DOOR SLINGER
ISR distal to the JUAN anastomosis, backfilling the mid LAD septal experimental welder, patent SVG to D1, patent sequential SVG to OM1-OM2 with a 50% lesion in OM 2 immediately after the graft anastomosis and a patent LRA to RPDA) with a 70% lesion in the
proximal RPDA followed by a 40-50% lesion in the mid RPDA. The distal RCA disease appears modestly progressed from prior cardiac catheterization but the vessel is <2 mm in diameter, unamenable to intervention.
2. Severely elevated filling pressures (LVEDP = 27 mmHg at 79.0 kg).
Discharge Plan
-
Patient Disposition: Home with Home Care
Discharge Diagnosis/Procedures: Chest pain with elevated troponin consistent with non-ST segment elevation myocardial infarction status post cardiac catheterization (07/18/24), ICD implant 07/21, slow ventricular tachycardia, febrile illness,
chronic diastolic congestive heart failure without exacerbation, end-stage renal disease on hemodialysis, chronic anemia and thrombocytopenia, gram negative urinary tract infection
Condition: Good
Diet: 2 Gram Sodium and Restrict fluids to 48 oz
Activity: As tolerated
Driving Restrictions: As prior to admission
Bathing Restrictions: OK to Shower
Other Services: [facility]
Specialty Instructions: Weigh Daily- Call MD for wt gain/loss 3 lbs overnight/5 lbs in 1 week
Stand Alone Forms: DC Instructions- Cath/EP Lab, DC Inst - Implanted Device
Referrals:
[facility] [Outside]
Sherin Ca CRNP [Specified Professional Personl] - 07/29/24 8:40 am (Incision check appointment)
Lisa Torres MD [Non-Admitting Privileges] - in less than 1 week
Tomer Mendoza MD [Active] - in three to four weeks
Prescriptions:
New
amiodarone 200 mg Tablet
400 mg PO BID Qty: 60 0RF
Rx Instructions:
take this dose until 08/04/24 then go to 200mg daily
acetaminophen 325 mg Tablet
650 mg PO Q4HPRN PRN (Reason: mild pain/ fever>100.5F) Qty: 0 0RF
metoprolol succinate 50 mg tablet extended release 24 hr
50 mg PO DAILY Qty: 30 0RF
cephalexin 500 mg capsule
500 mg PO TID Qty: 21 0RF
Continued
atorvastatin 40 mg Tablet
40 mg PO HS
allopurinol 100 mg Tablet
100 mg PO HS
sevelamer HCl 800 mg Tablet
2,400 mg PO AC
aspirin 81 mg Capsule
81 mg PO DAILY
cyanocobalamin (vitamin B-12) [Vitamin B-12] 100 mcg Tablet
100 mcg PO DAILY
cholecalciferol (vitamin D3) [Vitamin D3] 25 mcg (1,000 unit) Tablet
25 mcg PO DAILY
midodrine 10 mg Tablet
10 mg PO MOWEFR
isosorbide mononitrate 60 mg tablet extended release 24 hr
60 mg PO BID
Discontinued
metoprolol tartrate 25 mg tablet
25 mg PO BID
Care Plan Goals
Care Plan Goals:
Problem: Readiness for enhanced knowledge related to diagnosis and treatment plan
Goal: Understand your diagnosis and treatment plan needs, including medications if applicable.
Instructions: Know your diagnosis, underlying causes and treatment plan options, including medications if applicable. Consult with your health care team to learn about your diagnosis and treatment plan, including medications if applicable.
Discharge Date and Time
Print Language: LIBERIAN
[2024-07-22] MEDS: TOPROL XL 50 MG PO (18:17)
--- NOTE | 2024-07-22 18:37 | PTCARENOTE ---
Patient's here for discharge however the patient is telling her that he feels week and dizzy. BP stable, but patient is lying in bed and looks fatigued. reluctant to take him home, worried that he would have to come back if he cannot
manage. Notified Dr. Roberts, patient for PT/OT consults and nurse outreach case manager spoke to the patient and his . Discharge cancelled today.
[2024-07-22] MEDS: IMDUR (EXTENDED RELEASE) 60 MG PO (20:05)
--- NOTE | 2024-07-22 20:59 | PTCARENOTE ---
Patient received at change of shift. Patient offers no complaints at this time, denies feeling lightheaded or dizzy. Denies pain. Right upper chest aquacell C/D/I, area soft to palpation. Previous loop recorder site with gauze and tegaderm C/D/I.
Right groin puncture site open to air, area soft to palpation. Bilateral radial and pedal pulses palpable. LUE AV Fistula with positive Bruit/Thrill. Call ernst within reach. Patient normal sinus rhythm on pilot supervisor with 1st degree block and
BBB. Plan of care ongoing.
[2024-07-22] MEDS: ZYLOPRIM 100 MG PO (22:05)
[2024-07-22] MEDS: LIPITOR 40 MG PO (22:05)
[2024-07-23 03:16] VITALS: BP 99/61
[2024-07-23 07:49] VITALS: BP 114/56
[2024-07-23] MEDS: RENVELA 2400 MG PO (08:07)
[2024-07-23] MEDS: ASPIR LOW (ENTERIC COATED) 81 MG PO (08:08)
[2024-07-23] MEDS: IMDUR (EXTENDED RELEASE) 60 MG PO (08:08)
[2024-07-23] MEDS: VITAMIN D3 (cholecalciferol) 25 MCG PO (08:08)
[2024-07-23] MEDS: PACERONE 400 MG PO (08:08)
[2024-07-23] MEDS: VITAMIN B-12 100 MCG PO (08:08)
[2024-07-23 08:50] VITALS: BP 113/58
[2024-07-23 08:59] VITALS: BP 129/69
--- NOTE | 2024-07-23 09:00 | PTCARENOTE ---
Received patient for 7a-7p shift. Pt AAOx3, without complaints. VSS, SR with 1st deg hb on cardiac catheterization technologist. Medications administered as ordered. Patient seen by PT/OT and attending. For discharge today. R upper chest aquacell c/d/i, mid chest 4x4
and tegaderm c/d/i. Patient denies cp, pain at this time. Will continue to monitor.
[2024-07-23 09:03] VITALS: BP 113/58; BP 129/69; PULSE 76; PULSE 77; PULSE 94
--- NOTE | 2024-07-23 09:03 | W.PN.HOSP.TC ---
Today's Communication/Plan
-
d/c
Assessment / Plan
Assessment / Plan
pt is a 74 year old male
no changes--d/c
Chest Pain with Elevated Troponin consistent with NSTEMI--Remains Asymptomatic without any further chest pains---s/p cardiac cath 07/18 has CAD but no viable options for revascularization. Low EF noted- ECHO-drop in EF from 60 to 65% to 40 to 45%
noted. Inferior wall is more hypokinetic compared to before. Degree of mitral regurgitation has increased from mild to moderate. Gradient across the aortic valve is stable-Patient with known extensive coronary artery disease with CABG x5 and
multiple stents-patient states last coronary stent in 2022. Currently on aspirin/isosorbide
Probable cardiac arrest- he had a CPR done in his HD unit. He complains of sore chest from the CPR. Chest x-ray on admission without any acute cardiopulmonary abnormalities
Slow ventricular tachycardia--Loop recorder shows slow ventricular tachycardia-Continue amiodarone oral-Continue toprol XL-s/p ICD 07/21
Fever - without any focal infective symptoms or signs--Neg COVID, influenza--Consulted ID -suspect tissue trauma from CPR/Cardiac arrest--urine culture positive for gm neg bacilli--ID not back--will d/c on keflex renal dosed
Chronic Diastolic Heart Failure- Clinically compensated - Continue fluid restriction-Monitor Is&Os and Daily Weight-Volume managed with dialysis
ESRD on HD - Nephrology following-Continue sevelamer
Chronic Anemia / Thrombocytopenia-Monitor counts closely while on heparin drip
DVT proph: Heparin drip
Code Status: Full Code
DC home
Anticipated Discharge: Today
Subjective/Interval History
-
Date of Service: July 23, 2024
pt worked with PT
OK for d/c home
Objective Data
-
Vital Signs:
max temp for 24 hours
07/23/24
03:13
Temp 98.4 F
Vital Signs
Temp Pulse Resp BP Pulse Ox
97.7 F 75 18 114/56 99
07/23/24 07:47 07/23/24 08:08 07/23/24 07:47 07/23/24 08:08 07/23/24 07:47
I&O
07/22/24 07/23/24 07/24/24
06:59 06:59 06:59
Intake Total 120 / 120
Balance 120 / 120
Review of Systems
-
All other systems: Reviewed and negative
Physical Exam
-
General: Well Developed, Well Nourished and No Apparent Distress
HEENT: Normocephalic and Atraumatic; Negative Oxygen
Respiratory: Clear to Auscultation; Negative Wheezes or Rhonchi
Cardiac: Regular Rhythm and S1/S2; Negative Murmur
GI: Soft, Nontender, Nondistended and Normal Bowel Sounds
Musculoskeletal: No Clubbing, No Cyanosis and No Edema
Skin: Warm
Neuro: Awake
--- NOTE | 2024-07-23 10:08 | W.PN.NEPH.PH ---
Today's Communication / Plan
-
dc
Assessment/Plan
-
IMP:
Chest Pain with Elevated Troponin consistent with NSTEMI
Probable cardiac arrest- he had a CPR done in his HD unit
Slow ventricular tachycardia noted Loop recorder
Chronic Diastolic Heart Failure
ESRD on dialysis Thursday -[facility] [phone]
Chr anemia
Chronic thrombocytopenia
HTN�benign
CAD/CABG x 5 vessel
Cardiac stent July 2022
HLD
Hx visual loss left eye due to vitreous hemorrhage March 2023
Gout
Plan:
Regular dialysis schedule Thursday at OP unit
for dc
-
-
Date of Service: July 23, 2024
CC / HPI / ROS
-
Chief Complaint:
ESRD
History of Present Illness:
Status post PPM
tolerated HD yesterday
BP stable
Review of Systems:
no cp or sob at rest
Labs
-
Labs:
WBC 5.5 10^3/uL (4.8-10.8) 07/22/24 03:25
RBC 3.37 10^6/uL (4.70-6.10) L 07/22/24 03:25
Hgb 10.7 g/dL (13.0-18.0) L 07/22/24 03:25
Hct 33.8 % (39.0-52.0) L 07/22/24 03:25
Plt Count 129 10^3/uL (130-400) L 07/22/24 03:25
Sodium 133 mmol/L (135-145) L 07/22/24 03:25
Potassium 4.7 mmol/L (3.5-5.1) 07/22/24 03:25
Chloride 92 mmol/L (98-107) L 07/22/24 03:25
Carbon Dioxide 21 mmol/L (22-30) L 07/22/24 03:25
BUN 92 mg/dl (9-20) H 07/22/24 03:25
Creatinine 9.1 mg/dL (0.7-1.3) H* 07/22/24 03:25
eGFR 5.58 07/22/24 03:25
Glucose 115 mg/dl (70-99) H 07/22/24 03:25
Calcium 8.8 mg/dl (8.4-10.2) 07/22/24 03:25
Albumin 3.9 g/dl (3.5-5.0) 07/17/24 18:35
Physical Exam
-
Vital Signs:
Vital Signs
Temp Pulse Resp BP Pulse Ox
97.7 F 75 18 114/56 99
07/23/24 07:47 07/23/24 08:08 07/23/24 07:47 07/23/24 08:08 07/23/24 07:47
Cardiovascular:: Regular rate and rhythm
Respiratory:: Bilateral: Coarse
Lung Excursion:: Normal
Abdomen:: Nontender and Soft
Bowel Sounds:: Normal
Extremity Edema:: None: Bilateral:
[2024-07-23 12:00] VITALS: BP 112/57
[2024-07-23] MEDS: RENVELA PO (13:43)
--- NOTE | 2024-07-23 16:06 | PTCARENOTE ---
Pt discharged per protocol without issues. Discharge instructions reviewed with patient and his , verbalized understanding. PIV and school bus monitor removed. Pt escorted to car via wheelchair by RN.
--- NOTE | 2024-07-23 23:52 | W.PN.UPDATE ---
Update Note
Progress Note Update
Prescriptions for amiodorone, cephalexin and metoprolol as noted on the discharge medication sheet were called into the [place] 24 hour [facility] since his original pharmacy was closed til Thursday. The cephalexin was changed to amoxicillin
since his urine culture grew out ESBL e coli. Unfortunately the metoprolol succinate is on back order so will not be filled by pharmacy but daughter states patient may have 25 mg tablets at home.
== END 2024-07-23 16:40 | disposition home health service (06) | DRG 275 ==
LOC: IVU 20:36
PROVIDERS: Internal Medicine; Internal Medicine Cardiovascular Disease; Internal Medicine Nephrology; Nurse Practitioner; Nurse Practitioner Adult Health; Nurse Practitioner Family; Physician Assistant Medical; Specialist; ADMITTING PHYSICIAN Internal Medicine; ATTENDING PHYSICIAN Internal Medicine; CONSULT PHYSICIAN Internal Medicine Infectious Disease; EMERGENCY PHYSICIAN Emergency Medicine; OTHER PHYSICIAN Internal Medicine
PROC: B2181ZZ Fluoroscopy of Left Internal Mammary Bypass Graft using Low Osmolar Contrast (ICD-10-PCS; 2024-07-18)
PROC: B2111ZZ Fluoroscopy of Multiple Coronary Arteries using Low Osmolar Contrast (ICD-10-PCS; 2024-07-18)
PROC: 4A023N7 Measurement of Cardiac Sampling and Pressure, Left Heart, Percutaneous Approach (ICD-10-PCS; 2024-07-18)
PROC: B2131ZZ Fluoroscopy of Multiple Coronary Artery Bypass Grafts using Low Osmolar Contrast (ICD-10-PCS; 2024-07-18)
PROC: 5A1D70Z Performance of Urinary Filtration, Intermittent, Less than 6 Hours Per Day (ICD-10-PCS; 2024-07-19)
PROC: 02HK3KZ Insertion of Defibrillator Lead into Right Ventricle, Percutaneous Approach (ICD-10-PCS; 2024-07-21)
PROC: 0JH608Z Insertion of Defibrillator Generator into Chest Subcutaneous Tissue and Fascia, Open Approach (ICD-10-PCS; 2024-07-21)
PROC: 02H63KZ Insertion of Defibrillator Lead into Right Atrium, Percutaneous Approach (ICD-10-PCS; 2024-07-21)
DX: I21.4 Non-ST elevation (NSTEMI) myocardial infarction (principal); I46.2 Cardiac arrest due to underlying cardiac condition; N18.6 End stage renal disease; I50.32 Chronic diastolic (congestive) heart failure; I13.2 Hypertensive heart and chronic kidney disease with heart failure and with stage 5 chronic kidney disease, or end stage renal disease; I45.2 Bifascicular block; I47.29 Other ventricular tachycardia; N25.81 Secondary hyperparathyroidism of renal origin; N39.0 Urinary tract infection, site not specified; I49.5 Sick sinus syndrome; I25.10 Atherosclerotic heart disease of native coronary artery without angina pectoris; D69.6 Thrombocytopenia, unspecified; I95.3 Hypotension of hemodialysis; D63.1 Anemia in chronic kidney disease; E78.00 Pure hypercholesterolemia, unspecified; K21.9 Gastro-esophageal reflux disease without esophagitis; H54.62 Unqualified visual loss, left eye, normal vision right eye; M10.9 Gout, unspecified; E83.39 Other disorders of phosphorus metabolism; B96.20 Unspecified Escherichia coli [E. coli] as the cause of diseases classified elsewhere; I08.3 Combined rheumatic disorders of mitral, aortic and tricuspid valves; Z79.02 Long term (current) use of antithrombotics/antiplatelets; Z79.82 Long term (current) use of aspirin; Z79.899 Other long term (current) drug therapy; Z95.1 Presence of aortocoronary bypass graft; Z95.5 Presence of coronary angioplasty implant and graft; Z99.2 Dependence on renal dialysis
CPT/HCPCS: 33249; 33286; 71045; 71046; 80048; 80053; 81003; 81015; 83735; 84484; 85025; 85027; 85730; 87040; 87077; 87086; 87186; 87502; 87811; 93005; 93306; 93459; 96361; 96365; 96375; 97162; 97166; 99291; C1721; C1760; C1777; C1892; C1894; C1898; G0257; P9047; Q9967

== ENCOUNTER 2024-08-25 21:15 | Emergency (ER) | payer MEDICARE, OTHER, SELFPAY ==
[2024-08-25 21:18] VITALS: BP 132/64
[2024-08-25 21:52] LABS: COVID-19 Antigen Negative (Negative)
[2024-08-25 23:02] VITALS: BP 101/45
--- NOTE | 2024-08-26 01:06 | ED.GENMED ---
History of Present Illness
<JAYLEEN Gutierrez - Last Filed: 08/26/24 02:00>
General
Chief Complaint: Fever
Source: patient
Exam Limitations: none
Time Seen by Provider: 08/26/24 00:54
History of Present Illness
History of Present Illness:
This is a 74 year old male that comes in with c/o fever and cough. States that he has a fever of 101 at home. States that he was shaking. States that this started today. states that for a couple of days he has a runny nose. States that he also
has a cough. Patient is a dialysis patient and has Dialysis M-W-F. Denies any chest pain, SOB, abd pain, nausea, vomiting, diarrhea, headache, dizziness, urinary burning.
Past History
<JAYLEEN Gutierrez - Last Filed: 08/26/24 02:00>
Past History
ED Past Medical History: CAD, GERD, HTN, Hypercholesterolemia, Renal failure (Thursday) and Other (Gout, Peritonitis)
ED Past Surgical History: Appendectomy, Cardiac (cardiac stent, Open heart CABG X 5, NSTEMI, Pacer/defib) and Other (Cataracts)
Social History
Tobacco: Non-smoker
Alcohol: None
Drug: None
Personal:
Living: with family
Review of Systems
<JAYLEEN Gutierrez - Last Filed: 08/26/24 02:00>
Review of Systems
All Other Systems: ROS reviewed and negative except as documented in HPI and ROS
Constitutional: Reports fever and chills
EENT: Reports no symptoms
Respiratory: Reports cough; Denies trouble breathing
Cardiac: Reports no symptoms; Denies chest pain
ABD/GI: Reports no symptoms; Denies abdominal pain, nausea, vomiting or diarrhea
: Reports other (Patient does not urinate at all)
Musculoskeletal: Reports no symptoms
Skin: Reports no symptoms
Neurological: Reports no symptoms; Denies dizzy or headache
Psychiatric: Reports no symptoms
Phy Exam
<JAYLEEN Gutierrez - Last Filed: 08/26/24 02:00>
General Physical Exam
General Presentation: no apparent distress
General age: appears stated age
General Skin: warm and dry
General Habitus: elderly
General Mental: alert
General Hydration: appears well hydrated
ENT Exam
ENT Exam: TM's normal, pharynx normal and neck supple
Eye Exam
Eye Exam: EOMI
Cardiovascular Exam
Cardiovascular Exam: regular rate/rhythm
Pulmonary Exam
Pulmonary Exam: no respiratory distress, chest non tender, no crackles, no rhonchi and other (Exp wheezing noted, Moist cough noted)
Gastrointestinal Exam
Gastrointestinal Exam: normal bowel sounds, non tender, soft, no organomegaly, no pulsatile mass and non distended
Musculoskeletal Exam
Musculoskeletal Exam: full ROM and edema (Slight lower leg edema nonpitting)
Skin Exam
Skin Exam: normal color, warm/dry, no rash, no petechia and other (Left upper arm dialysis graft with good bruits and Thrill)
Psychiatric Exam
Psychiatric Exam: normal mood/affect
Course
<JAYLEEN Gutierrez - Last Filed: 08/26/24 02:00>
Orders/Labs/Results
Orders:
Orders
08/25/24 21:24
COVID-19 Antigen Urgent
Source: Nasal Swab
Influenza A+B Rapid Molecular Urgent
LASHAY Source: Nasal Swab
Specimen Description:
08/26/24 01:06
CR Chest - 2 Views Urgent
Comment:
Reason For Exam: Fever cough
08/26/24 01:08
Dexamethasone Pf [Decadron] 20 mg PO NOW STA
COVID Negative, Influenza A positive
Vital Signs
Initial and Last Documented VS:
Initial Vital Signs
Temp Pulse Resp BP Pulse Ox
100.3 F 97 16 132/64 99
08/25/24 21:18 08/25/24 21:18 08/25/24 21:18 08/25/24 21:18 08/25/24 21:18
Last Documented Vital Signs
Temp Pulse Resp BP Pulse Ox
99.1 F 79 18 101/45 96
08/26/24 00:58 08/25/24 23:02 08/25/24 23:02 08/25/24 23:02 08/25/24 23:02
<Rylan Conrad DO - Last Filed: 08/26/24 01:44>
Orders/Labs/Results
Orders:
Orders
08/25/24 21:24
COVID-19 Antigen Urgent
Source: Nasal Swab
Influenza A+B Rapid Molecular Urgent
LASHAY Source: Nasal Swab
Specimen Description:
08/26/24 01:06
CR Chest - 2 Views Urgent
Comment:
Reason For Exam: Fever cough
08/26/24 01:08
Dexamethasone Pf [Decadron] 20 mg PO NOW STA
Vital Signs
Initial and Last Documented VS:
Initial Vital Signs
Temp Pulse Resp BP Pulse Ox
100.3 F 97 16 132/64 99
08/25/24 21:18 08/25/24 21:18 08/25/24 21:18 08/25/24 21:18 08/25/24 21:18
Last Documented Vital Signs
Temp Pulse Resp BP Pulse Ox
99.1 F 79 18 101/45 96
08/26/24 00:58 08/25/24 23:02 08/25/24 23:02 08/25/24 23:02 08/25/24 23:02
<JAYLEEN Gutierrez - Last Filed: 08/26/24 02:00>
MDM/Problems Addressed
Differential Diagnosis Includes:
Influenza. PNA, COVID,
MDM/Problems Addressed:
This is a 74 year old male that comes in with c/o fever and shaking. States that he had a runny nose for a few days and then today he started with a fever. Patient is due to dialysis today.
Will check COVID, Influenza and get Chest x-ray. Will also give Decadron liquid for the wheezing.
Chronic conditions affecting care: Kidney disease
Acute Exacerbation and/or Progression of Chronic Illness:
NA
<JAYLEEN Gutierrez - Last Filed: 08/26/24 02:00>
*Radiology
Radiology exam reviewed: preliminary read by ED provider (Chest-Negative for acute disease (patient due for dialysis in the morning))
*Pulse Oximetry
Patient hypoxic: no
*EKG
Interpreted by ED Provider?: NA
Rate: EKG- N/A
*Linderman Machine Operator Interpretation
Rate: Linderman Machine Operator- N/A
*Critical Care Note
Total Time (30-74mins, 75-104mins- exclusive of procedures): Not Applicable
ED Attending Note
<JAYLEEN Gutierrez - Last Filed: 08/26/24 02:00>
-
Portions of this chart may have been created with voice recognition software.� Occasional wrong word or��sound alike� substitutions may have occurred due to the inherent limitations of voice recognition software.
<Rylan Conrad DO - Last Filed: 08/26/24 01:44>
ED Attending Note
Patient seen and examined by attending physician: Yes
ED Attending Note:
Pleasant 74-year-old male presents to the emergency department with fever and cough. Diagnosed with Louay while here. Had low-grade fever 101 while at home. Patient has had symptoms for few days. Patient is on dialysis and is due for dialysis in
the morning. Patient was seen in conjunction with the nurse practitioner and reviewed the with her history and treatment plan. On my independent physical exam patient is awake, alert, and oriented x 3. Minimal acute distress resting comfortably
in the bed. Patient due for dialysis tomorrow at [place]
Discharge Plan
Departure
Patient Disposition: Home (Routine Discharge)
Date of Disposition: 08/26/24
Time of Disposition: 01:53
Patient with high blood pressure during this ER visit?: No
Condition: Good
Covid-19: Negative COVID-19
Discharge Problem:
Influenza A
Instructions: Flu in adults - ED discharge instructions
Prescriptions:
No Action
atorvastatin 40 mg Tablet
40 mg PO HS
allopurinol 100 mg Tablet
100 mg PO HS
sevelamer HCl 800 mg Tablet
2,400 mg PO AC
aspirin 81 mg Capsule
81 mg PO DAILY
cyanocobalamin (vitamin B-12) [Vitamin B-12] 100 mcg Tablet
100 mcg PO DAILY
cholecalciferol (vitamin D3) [Vitamin D3] 25 mcg (1,000 unit) Tablet
25 mcg PO DAILY
midodrine 10 mg Tablet
10 mg PO MOWEFR
isosorbide mononitrate 60 mg tablet extended release 24 hr
60 mg PO BID
amiodarone 200 mg Tablet
400 mg PO BID Qty: 60 0RF
Rx Instructions:
take this dose until 08/04/24 then go to 200mg daily
acetaminophen 325 mg Tablet
650 mg PO Q4HPRN PRN (Reason: mild pain/ fever>100.5F) Qty: 0 0RF
metoprolol succinate 50 mg tablet extended release 24 hr
50 mg PO DAILY Qty: 30 0RF
amoxicillin-pot clavulanate 500-125 mg tablet
1 tab PO Q12H Qty: 14 0RF
Referrals:
Lisa Torres MD [Family Provider] - Follow up in 2-3 days
Activity Restrictions/Additional Instructions:
As discussed, you are negative for COVID but positive for Influenza A. Please use Tylenol as needed for fever. Follow up with the family doctor for recheck in 2-3 days. IF YOU HAVE INCREASED SHORTNESS OF BREATH, OR YOU HAVE ANY OTHER CONCERNS PLEASE
RETURN TO THE EMERGENCY ROOM.
Interventions
Interventions:
*Risk Screen - Suicide Last Done: 08/25/24 21:18
*General Assessment Last Done: 08/25/24 21:18
*Neglect/Abuse Screening Last Done: 08/25/24 21:18
*ED COVID-19 Vaccine History Last Done: 08/25/24 21:18
Discharge Date and Time
Print Language: CITIZEN [place]
[2024-08-26] MEDS: DECADRON 20 MG PO (01:25)
== END 2024-08-26 02:14 | disposition home or self-care (01) ==
LOC: EMR 21:15
PROVIDERS: Student in an Organized Health Care Education/Training Program; EMERGENCY PHYSICIAN Student in an Organized Health Care Education/Training Program; FAMILY PHYSICIAN Internal Medicine
DX: J10.1 Influenza due to other identified influenza virus with other respiratory manifestations (principal); I25.10 Atherosclerotic heart disease of native coronary artery without angina pectoris; K21.9 Gastro-esophageal reflux disease without esophagitis; I10 Essential (primary) hypertension; E78.00 Pure hypercholesterolemia, unspecified; N19 Unspecified kidney failure; I25.2 Old myocardial infarction; Z90.49 Acquired absence of other specified parts of digestive tract; Z95.1 Presence of aortocoronary bypass graft; Z95.5 Presence of coronary angioplasty implant and graft; Z99.2 Dependence on renal dialysis
CPT/HCPCS: 99282; 71046; 87502; 87811

== ENCOUNTER → 2024-09-20 09:50 | Outpatient (REF) | payer MEDICARE, OTHER, SELFPAY | LOC: RAD 09:50 | PROVIDERS: ATTENDING PHYSICIAN Registered Nurse; FAMILY PHYSICIAN Internal Medicine | DX: I73.9 Peripheral vascular disease, unspecified (principal) | CPT/HCPCS: 93922; 93925 ==